=== PATIENT | male | born 1945 | race Caucasian/White ===

== ENCOUNTER 2022-09-25 08:33 | Emergency (ER) | payer MEDICARE, BC, SELFPAY ==
[2022-09-25 08:41] VITALS: BP 166/63; PULSE 44; RESP 20; TEMP 36.7; O2SAT 96; BMI 23.7
--- NOTE | 2022-09-25 09:01 | ED.LOWEXI1 ---
HPI - Extremity Injury (Lower) General Chief Complaint: Extremity Injury, Lower Stated Complaint: FALL LOWER EXTREMITY PAIN LEFT LEG Time Seen by Provider: 09/25/22 09:01 Source: patient Mode of arrival: walker Limitations: no limitations History of Present Illness HPI Narrative: Patient presents to emergency department complaining of left leg pain. Patient states he had Focal Fall Yesterday and Fell onto His Left Side. He States He Twisted His Left Ankle. Complains of Pain to the Foot, Ankle, and Knee When He Walks. He States He Although His Knee Has a Small Amount of Pain Worsened the Pain Is at the Ankle. Person That Accompanies the Patient Also States That the Patient Was Complains of Left Hip Pain. Patient Denies Any Back Pain, Paresthesias, Weakness. He Denies Any Urinary, Bowel Incontinence, or Retention. He Did Not Hit His Head or Have Any Loss of Consciousness. Patient denies any weakness. He denies any chest, shortness of breath. Denies any abdominal pain and flank pain, hematuria, dysuria. He does not take any blood thinners. Related Data Home Medications Medication Instructions Recorded Confirmed atenolol 50 mg tablet mg 09/25/22 diclofenac sodium 75 mg 75 mg PO Q12H PRN pain 09/25/22 09/25/22 tablet,delayed release glimepiride 4 mg tablet 4 mg PO BID 09/25/22 09/25/22 lisinopril 10 mg tablet 10 mg PO DAILY 09/25/22 09/25/22 metformin 500 mg tablet 1,000 mg PO BID 09/25/22 09/25/22 tramadol 50 mg tablet 50 mg PO Q12H PRN pain 09/25/22 09/25/22 Allergies Allergy/AdvReac Type Severity Reaction Status Date / Time No Known Allergies Allergy Unknown Verified 09/25/22 08:47 Review of Systems ROS Status of ROS 10 or more systems reviewed and unremarkable except as noted in history and below [facility] Medical History (Updated 09/25/22 @ 11:01 by Tamanna Cline MD) Social History Smoking status: Light tobacco smoker Exam Narrative Exam Narrative: Nurses notes and vital signs reviewed and patient is not hypoxic. General: Nontoxic, elderly,well-appearing and in no apparent distress. Skin: Warm, dry, no pallor noted. No Rash Head: Normocephalic, atraumatic. Neck: Supple, non-tender. Eye: Pupils are equal, round and EOMI. No scleral icterus. Ears, Nose, Mouth, and Throat: TM clear, no posterior oropharynx erythema or nasal mucosal hypertrophy, uvula is mid-line Oral mucosa is moist Cardiovascular: Regular Rate and Rhythm without murmur, gallop or rub. Respiratory: No accessory muscle use or respiratory distress. Lungs are clear to auscultation, no wheezing, rales or rhonchi Chest Wall: no tenderness Back: No midline thoracic or lumbar vertebral tenderness. No CVA tenderness Musculoskeletal: Left lateral malleolus edematous without any ecchymosis. Tender to palpation. There is tenderness at the base of the 5th. DP +2, tuberculosis +2, capillary refill is brisk. Knee is nontender to palpation. No effusion noted. Full range of motion. no calf or popliteal tenderness, no lower extremity edema/swelling GI: Abdomen is soft, non-distended. Normal bowel sounds. No masses appreciated. No tenderness to palpation. No rebound, guarding, or rigidity noted. Neurological: A&O x4. No cranial nerve dysfunction observed. No truncal ataxia. Moves all extremities. Sensation intact. Psychiatric: Cooperative and interactive. Normal mood and affect. Constitutional Vital Signs - 24 hr 09/25/22 08:41 Temperature 98.1 F Pulse Rate [Monitor] 44 L Respiratory Rate 20 Blood Pressure [Right Arm] 166/63 H Pulse Oximetry 96 Course Vital Signs Vital signs: Vital Signs Temperature 98.1 F 09/25/22 08:41 Pulse Rate 44 L 09/25/22 08:41 Respiratory Rate 20 09/25/22 08:41 Blood Pressure 166/63 H 09/25/22 08:41 Pulse Oximetry 96 09/25/22 08:41 Temperature 98.1 F 09/25/22 08:41 Pulse Rate 44 L 09/25/22 08:41 Respiratory Rate 20 09/25/22 08:41 Blood Pressure 166/63 H 09/25/22 08:41 Pulse Oximetry 96 09/25/22 08:41 MDM - Extremity Injury (Lower) MDM Narrative Medical decision making narrative: Left foot, left ankle, and femur x-rays ordered. All results discussed with patient. Results demonstrate no fracture. Patient was placed on the Tyrel wrap, and Aircast. He is to follow up with Dr. high Estrada.At this time the patient is without objective evidence of an acute process requiring hospitalization or inpatient management. The patient has remained hemodynamically stable. No additional indication for emergent studies at this time. I answered all questions. Discussed discharge instructions including standard anticipatory guidance and what should prompt a return to the emergency department, including if they get worse are not getting better or develops any new or concerning symptoms. I've given them specific time frame in which to follow-up, and who to follow-up with. The patient demonstrates understanding. Patient is nontoxic and stable for discharge with outpatient follow-up. This note was created with the assistance of a speech recognition program. Although the intention is to generate documents that actually reflects the content of the visit, no guarantees can be provided that every mistake has been identified and corrected by editing. Discharge Plan Discharge Chief Complaint: Extremity Injury, Lower Clinical Impression: Ankle sprain and strain Patient Disposition: Home, Self-Care Time of Disposition Decision: 11:00 Condition: Good Mode of Transportation: Private Vehicle Prescriptions / Home Meds: No Action diclofenac sodium 75 mg tablet,delayed release (DR/EC) 75 mg PO Q12H PRN (Reason: pain) atenolol 50 mg tablet glimepiride 4 mg tablet 4 mg PO BID lisinopril 10 mg tablet 10 mg PO DAILY metformin 500 mg tablet 1,000 mg PO BID tramadol 50 mg tablet 50 mg PO Q12H PRN (Reason: pain) Instructions: Ankle Sprain (ED) Additional Instructions: TYREL wrap to left ankle. Assisted to put jeans and shoes on. To W/C and to car aware of plan of care at discharge. Stand Alone Forms: Portal Instructions Referrals: NIELS TOWNSEND [Primary Care Provider] - 1 week Discharge Date/Time: 09/25/22 11:18
--- NOTE | 2022-09-25 09:17 | XR_ITS ---
[place] [id number] Patient Name: KATHE VICTOR MRN: [id number] date: 1945 Sex: M Assigned Patient Location: ER Current Patient Location: ER Accession/Order Number: [id number] Exam Date: 09/25/2022 09:38 Report Date: 09/25/2022 10:03 At the request of: DORA QUIROZ Procedure: XR femur LT 2V EXAM: XR femur LT 2V INDICATION: pain. COMPARISON: None. TECHNIQUE: Left femur, 2 views FINDINGS: No acute fracture or dislocation. Grossly intact left hip and knee joints. No significant soft tissue swelling. Vascular calcifications noted. IMPRESSION: No acute osseous abnormality of the left femur. Electronically authenticated by: CHRIS GODOY Date: 09/25/2022 10:03
--- NOTE | 2022-09-25 09:17 | XR_ITS ---
The [address] [address] Patient Name: KATHE VICTOR MRN: [id number] date: 1945 Sex: M Assigned Patient Location: ER Current Patient Location: ER Accession/Order Number: [id number] Exam Date: 09/25/2022 09:38 Report Date: 09/25/2022 10:02 At the request of: DORA QUIROZ Procedure: XR foot LT min 3V EXAM: XR ankle LT min 3V, XR foot LT min 3V INDICATION: pain. COMPARISON: None. TECHNIQUE: Left foot and ankle, 3 views. FINDINGS: Foot: No acute fracture or dislocation. Pes planus. Moderate degenerative changes of the first MTP joint. No significant soft tissue swelling. Vascular calcifications noted. Ankle: No acute fracture or dislocation. Intact ankle mortise. Mild soft tissue swelling about the ankle. Vascular calcifications noted. IMPRESSION: No acute osseous abnormality of the left foot or ankle. Electronically authenticated by: CHRIS GODOY Date: 09/25/2022 10:02
--- NOTE | 2022-09-25 09:17 | XR_ITS ---
The [address] [address] Patient Name: KATHE VICTOR MRN: [id number] date: 1945 Sex: M Assigned Patient Location: ER Current Patient Location: ER Accession/Order Number: [id number] Exam Date: 09/25/2022 09:38 Report Date: 09/25/2022 10:02 At the request of: DORA QUIROZ Procedure: XR ankle LT min 3V EXAM: XR ankle LT min 3V, XR foot LT min 3V INDICATION: pain. COMPARISON: None. TECHNIQUE: Left foot and ankle, 3 views. FINDINGS: Foot: No acute fracture or dislocation. Pes planus. Moderate degenerative changes of the first MTP joint. No significant soft tissue swelling. Vascular calcifications noted. Ankle: No acute fracture or dislocation. Intact ankle mortise. Mild soft tissue swelling about the ankle. Vascular calcifications noted. IMPRESSION: No acute osseous abnormality of the left foot or ankle. Electronically authenticated by: CHRIS GODOY Date: 09/25/2022 10:02
== END 2022-09-25 11:18 | disposition home or self-care (01) ==
PROVIDERS: Emergency Provider Emergency Medicine; PCP Family Medicine
DX: S93.402A Sprain of unspecified ligament of left ankle, initial encounter (principal); S96.912A Strain of unspecified muscle and tendon at ankle and foot level, left foot, initial encounter; Z79.899 Other long term (current) drug therapy; Z79.84 Long term (current) use of oral hypoglycemic drugs; F17.210 Nicotine dependence, cigarettes, uncomplicated; X50.1XXA Overexertion from prolonged static or awkward postures, initial encounter
CPT/HCPCS: 73552; 73610; 73630; 99284

== ENCOUNTER 2023-05-30 12:38 | Outpatient (OUT) | payer MEDICARE, BC, SELFPAY ==
--- NOTE | 2023-05-30 12:45 | MR_ITS ---
[address] [address] Patient Name: KATHE SPIVEY MRN: [id number] date: 1945 Sex: M Assigned Patient Location: MRI Current Patient Location: MRI Accession/Order Number: [id number] Exam Date: 05/30/2023 13:25 Report Date: 05/30/2023 14:42 At the request of: MAXI TELLEZ Procedure: MR lumbar spine wo con EXAM: MRI of the lumbar spine without IV gadolinium contrast. REASON FOR EXAM: Acute lower back pain and bilateral leg pain COMPARISON: None FINDINGS: No lumbar spine fractures, acute malalignment or acute abnormal marrow signal. No spinal canal mass, hematoma or fluid collection. Minimal grade 1 retrolisthesis of L2 on L3. Grade 1 retrolisthesis of L3 on L4. Minimal grade 1 anterolisthesis of L4 on L5. Grade 1 retrolisthesis of L5 on S1. L2-L3 posterior disc bulge. L3-L4, L4-5 and L5-S1 posterior disc protrusions. Lumbar spine degenerative changes with multilevel disc space narrowing, most advanced at the L2-L3 and L5-S1 levels. Stenosis of the lateral recesses at the L2-L3 level, more evident on the right. Moderate to severe L3-L4 spinal canal stenosis. Moderate to severe L4-5 spinal canal stenosis. Stenosis of the L5-S1 left lateral recess. Moderate to severe right L3-L4 neural foraminal stenosis. Moderate right L4-5 neural foraminal stenosis. Severe right L5-S1 neural foraminal stenosis. Moderate to severe left L3-L4, L4-5 and L5-S1 neural foraminal stenoses. Remainder unremarkable. MR/MR lumbar spine wo con IMPRESSION: 1. 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 2. Severe right L5-S1 neural foraminal stenosis. 3. Moderate to severe bilateral L3-L4, left L4-5 and left L5-S1 neural foraminal stenoses. Electronically authenticated by: SAILAJA SCHRADER Date: 05/30/2023 14:42
== END 2023-05-30 12:39 | disposition home or self-care (01) ==
LOC: MRI 12:38
PROVIDERS: PCP Internal Medicine; Visit Provider Orthopaedic Surgery
DX: M54.50 Low back pain, unspecified (principal); M48.062 Spinal stenosis, lumbar region with neurogenic claudication
CPT/HCPCS: 72148

== ENCOUNTER 2023-06-23 10:35 | Observation (INO) | payer MEDICARE, BC, SELFPAY ==
[2023-06-23] VITALS (28 sets, daily range): BP systolic 77–125; BP diastolic 32–67; PULSE 49–68; RESP 9–23; TEMP 36.4–36.6; O2SAT 92–100; BMI 21.0; BMI 20.8
--- OUTSIDE RECORDS SUMMARY | 2023-06-23 10:52 | XMS_ITS | CCD ---
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 Honing Name Role Phone HOUSE, DR BOWSER Primary Care Unavailable GABRIELLA, DORA Attending Unavailable GABRIELLA, DORA Consulting Unavailable GABRIELLA, DORA Admitting Unavailable HOUSE, DR BOWSER Primary Care Unavailable MADDIE, SUMMER Admitting Unavailable MADDIE, SUMMER Attending Unavailable HOUSE, DR BOWSER Primary Care Unavailable MADDIE, SUMMER Consulting Unavailable REQUEST, DR MARQUEZ LISTED Admitting Unavaila ble REQUEST, DR MARQUEZ LISTED Attending Unavaila ble HOUSE, DR BOWSER Primary Care Unavailable REQUEST, DR MARQUEZ LISTED Consulting Unavaila ble HOUSE, DR BOWSER Primary Care Unavailable PAY, DR PIZARRO Admitting Unavailable PAY, DR PIZARRO Attending Unavailable PAY, DR PIZARRO Consulting Unavailable HOUSE, DR BOWSER Admitting Unavailable HOUSE, DR BOWSER Attending Unavailable HOUSE, DR BOWSER Consulting Unavailable HOUSE, DR BOWSER Primary Care Unavailable ROSALINDA, MAXI Jackson Attending Unavailable ROSALINDA, MAXI Jackson Referring Unavailable MEGHANA, ROBYN Galarza Attending Unavailable ROSALINDA, MAXI Jackson Attending Unavailable ROSALINDA, MAXI Jackson Referring Unavailable ROSALINDA, MAXI Jackson Attending Unavailable ROSALINDA, MAXI Jackson Attending Unavailable ELTAHAWMilena, EHAB Attending Unavailable ELTAHAW, EHAB Attending Unavailable Problems Active Problems Problem Classification Problem Date Documented Date Episodic/Chronic Administrative/social admission (1 source) Person with feared health complaint in whom no diagnosis is made; Translations: [PERS FEAR HLTH COMPLAINT NO DX MADE] Onset: 07-08-2021 Episodic Coagulation and hemorrhagic disorders (4 sources) Thrombocytopenia, unspecified; Translations: [THROMBOCYTOPENIA UNSPECIFIED] Onset: 11-13-2020 Chronic Coronary atherosclerosis and other heart disease (2 sources) Atherosclerotic heart disease of [place] coronary artery without angina pectoris; Translations: [Atherosclerotic heart disease of [place] coronary artery without angina pectoris] Onset: 07-27-2022 Chronic Other aftercare (1 source) Other half-way (current) drug therapy; Translations: [OTH [facility] CURRENT DRUG THERAPY] Onset: 07-08-2021 Episodic Other aftercare (1 source) [facility] (current) use of aspirin; Translations: [ORDER PULLER CURRENT USE OF ASPIRIN] Onset: 07-08-2021 Episodic Other aftercare (1 source) 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; Translations: [ORDER PULLER USE ORAL HYPOGLYCEMIC DX] Onset: 07-08-2021 Episodic Other injuries and conditions due to external causes (1 source) History of falling; Translations: [HISTORY OF FALLING] Onset: 07-08-2021 Episodic Other non-traumatic joint disorders (4 sources) Pain in right hip; Translations: [PAIN IN RIGHT HIP] Onset: 07-07-2021 Episodic Unclassified (1 source) CONTACT W/AND (SUSP) EXPOS COVID-19; Translations: [CONTACT W/AND (SUSP) EXPOS COVID-19] Onset: 04-01-2021 Past or Other Problems Problem Classification Problem Date Documented Date Episodic/Chronic Heart valve disorders (1 source) Other abnormalities of heart beat; Translations: [OTHER ABNORMALITIES OF HEART BEAT] Onset: 04-01-2021 Episodic Immunizations and screening for infectious disease (4 sources) Encounter for immunization; Translations: [ENCOUNTER FOR IMMUNIZATION] Onset: 02-09-2021 Episodic Other upper respiratory infections (4 sources) Acute upper respiratory infection, unspecified; Translations: [ACUTE UP RESPIRATORY INFECTION UNS] Onset: 03-29-2021 Episodic Results Test Name Value Interpretation Reference Range Facil ity Follow-Upon 06-21-2023 Follow-Up [id number] Celestino Chung 1945 M Date Provider Department [facility] No family history on file Level of Service:18492 [place] OFFICE/OUTPATIENT ESTABLISHED MOD MDM 30 MIN Normal [facility] Office Visiton 07-27-2022 Follow-up visit [id number] Subramanian 1945 M Date Provider Department Center 07/27/2022 DominikJONATHAN [facility] No family history on file Level of Service:48077 [place] OFFICE/OUTPATIENT ESTABLISHED LOW MDM 20-29 MIN Reason for Visit and Comments: Coronary Artery Disease [187] Hypertension [934905] Normal [facility] Covid-19 PCR (CVDTB)on 03-17 SARS-CoV-2 (COVID-19) RNA LEO+probe Ql (Unsp spec) Not detected Normal NOT DETECTED [facility] Comment on above: Result Comment: When diagnostic testing is negative, the possibility of a false negative should be considered in the context of a patient's recent exposures and the presence of clinical signs and symptoms consistent with SARS-CoV-2. This test is not yet approved or cleared by the [place] Food and Drug Administration (FDA). This test was developed by [employer], [place], [place]. The performance characteristics of this test were validated by [facility]. The results are not intended to be used as the sole means for clinical diagnosis or patient management decisions. [facility] is authorized under Clinical Laboratory Improvement Amendments (CLIA) to perform high- complexity testing. This test is not yet approved or cleared by the [place] FDA. When there are no FDA-approved or cleared tests available, and other criteria are met, FDA can make tests available under an emergency access mechanism called an Emergency Use Authorization (EUA). The EUA for this test is supported by the [place] of Health and Human Service's declaration that circumstances exist to justify the emergency use of in vitro diagnostics for the detection and/or diagnosis of the virus that causes COVID-19. This EUA will remain in effect for the duration of the COVID-19 declaration justifying emergency of IVDs, unless it is terminated or revoked by the FDA (after which the test may no longer be used). Performed By: #### C VDTB #### [facility] [address] [place] [address] Dr. Kelly Montoya CBC AUTO DIFFon 11-13-2020 BASO # 0.1 103/ul Normal 0.0-0.1 [facility] Comment on above: Performed By: #### C BC #### [facility] [address] [place] [address] Cortez Ramirez Basophils/100 WBC (Bld) 1.3 % Normal 0.2-2.0 [facility] Comment on above: Performed By: #### C BC #### [facility] [address] [id number] Cortez Ashley EO # 0.4 103/ul Normal 0.0-0.7 [facility] Comment on above: Performed By: #### C BC #### [facility] [address] [place], [place] [id number] Cortez Ashley Eosinophils/100 WBC (Bld) 5.0 % Normal 0.9-7.0 [facility] Comment on above: Performed By: #### C BC #### [facility] [address] [place], [place] [id number] Cortez Ashley Erythrocyte distribution width (RBC) [Ratio] 13.6 % Normal 11.0-15.0 [facility] Comment on above: Performed By: #### C BC #### [facility] [address] [place] [address] Cortez Ashley Hematocrit (Bld) [Volume fraction] 47.6 % Normal 42.0-54.0 [facility] Comment on above: Performed By: #### C BC #### [facility] [address] [place], [place] [id number] Cortez Ashley Hemoglobin (Bld) [Mass/Vol] 15.4 g/dL Normal 14.0-18.0 [facility] Comment on above: Performed By: #### C BC #### [facility] [address] [place], [place] [id number] Cortez Ashley IG # 0.04 10e3/ul Critically high 0.00-0.03 [facility] Comment on above: Performed By: #### C BC #### [facility] [address] [place] [address] Cortez Ashley IG % 0.6 % Critically high 0.0-0.5 [facility] Comment on above: Performed By: #### C BC #### [facility] [address] [place], [place] [id number] Cortez Ashley LYMPH # 2.0 103/ul Normal 1.2-3.8 [facility] Comment on above: Performed By: #### C BC #### [facility] [address] [place], [place] [id number] Cortez Ashley Lymphocytes/100 WBC (Bld) 27.9 % Normal 20.5-60.0 [facility] Comment on above: Performed By: #### C BC #### [facility] [address] [place], [place] [id number] Cortez Ramirez MANUAL DIFF REQ NO Normal [facility] Comment on above: Performed By: #### C BC #### [facility] [address] [place], [place] [id number] Cortezvioleta Ramirez MCH (RBC) [Entitic mass] 30.3 pg Normal 25.9-34.0 [facility] Comment on above: Performed By: #### C BC #### [facility] [address] [place] [address] Cortezvioleta Ramirez MCHC (RBC) [Mass/Vol] 32.4 g/dL Normal 29.9-35.2 [facility] Comment on above: Performed By: #### C BC #### [facility] [address] [place] [address] Cortezvioleta Ramirez MCV (RBC) [Entitic vol] 93.5 fL Normal 80.0-94.0 [facility] Comment on above: Performed By: #### C BC #### [facility] [address] [place], [place] [id number] Cortezvioleta Ramirez MONO # 0.5 103/ul Normal 0.3-0.8 [facility] Comment on above: Performed By: #### C BC #### [facility] [address] [place] [address] Cortezvioleta Ramirez Monocytes/100 WBC (Bld) 7.4 % Normal 1.7-12.0 [facility] Comment on above: Performed By: #### C BC #### [facility] [address] [place], [place] [id number] Cortez Ashley NEUT # 4.1 103/ul Normal 1.4-6.5 [facility] Comment on above: Performed By: #### C BC #### [facility] [address] [place], [place] [id number] Cortez Ashley Neutrophils/100 WBC (Bld) 57.8 % Normal 43.0-75.0 [facility] Comment on above: Performed By: #### C BC #### [facility] [address] [place], [place] [address] Cortez Ramirez Platelet mean volume (Bld) [Entitic vol] 11.1 fL Normal 9.5-13.5 [facility] Comment on above: Performed By: #### C BC #### [facility] [address] [place], [place] [address] Cortez Ashley PLT 167 103/ul Normal 150-450 [facility] Comment on above: Performed By: #### C BC #### [facility] [address] [place], [place] [address] Cortez Ashley RBC 5.09 106/ul Normal 4.70-6.10 [facility] Comment on above: Performed By: #### C BC #### [facility] [address] [place], [place] [address] Cortez Ashley WBC 7.1 103/ul Normal 4.0-11.0 [facility] Comment on above: Performed By: #### C BC #### [facility] [address] [place], [place] [address] Cortez Ramirez Encounters Encounter Date Encounter Type Care Provider Facility Start: 06-21-2023 End: 06-21-2023 ambulatory [facility] Start: 06-21-2023 End: 06-21-2023 Encounter for other preprocedural examination [facility] Start: 06-06-2023 End: 06-06-2023 ambulatory MAXI TELLEZ Not Available Start: 05-23-2023 End: 05-23-2023 ambulatory MAXI TELLEZ Not Available Start: 05-09-2023 End: 05-10-2023 ambulatory MAXI TELLEZ Not Available Start: 05-08-2023 End: 05-08-2023 ambulatory ROBYN KOWALSKI Not Available Start: 04-25-2023 End: 04-26-2023 ambulatory MAIX TELLEZ Not Available Start: 07-27-2022 End: 07-27-2022 ambulatory [facility] Start: 07-07-2021 End: 07-07-[address] NIELS TOWNSEND Facility:[facility] Start: 03-29-2021 End: 03-29-[address] NIELS TOWNSEND Facility:[facility] Start: 02-09-2021 End: 02-09-2021 ambulatory SUMMERMALORIE PERKINS Facility:[facility] Start: 11-13-2020 End: 11-14-[address] NIELS TOWNSEND Facility:[facility] Start: 07-14-2020 End: 07-15-2020 ambulatory NONE LISTED REQUEST Facility:[facility] Payers Date Payer Category Payer Medicare [id number] 1961 Medicare [id number] 1961 Self-pay 1959 Unknown [id number] 1961 Unknown [id number] 1945 Unknown [id number] 2.16.84 [id number] 1945 Unknown [id number] 2.16.84 [id number] 1945 Unknown [id number] 2.16.84 [id number] 1945 Unknown [id number] 2.16.84 0.1.294559.3.579.2.593 1945 Unknown [id number] 2.16.84 0.1.781541.3.579.2.593 1945 Unknown [id number] 2.16.84 0.1.679988.3.579.2.1259 1943 Unknown [id number] 2.16.84 0.1.623092.3.579.2.1259 1943 Unknown [id number] 2.16.84 0.1.238125.3.579.2.1259 1943 Unknown [id number] 2.16.84 0.1.826942.3.579.2.1259 1943 Unknown [id number] 2.16.84 0.1.832027.3.579.2.1259 1943 Unknown [id number] 2.16.84 0.1.275248.3.579.2.1259 1945 Unknown [id number] 2.16.84 0.1.572236.3.579.2.1259 Unknown [id number] 2.16.84 [id number] Progress note 06-21-2023 Note Date & Type Note Facility 06-21-2023 Note [facility] Card[facility] Clinic Note Chief Complaint: Patient here for cardiac clearance prior to back surgery, hoping to be scheduled next month. Denies chest pain, SOB, palpitations, and lightheadedness/syncope. Has not had any recent lab work or imaging. HPI: Celestino Chung is a 77 y.o. male With a history of coronary artery disease: Prior stent placement, a chronic total occlusion of the obtuse marginal branch, diabetes and hypertension here for preop clearance He walks with a walker and is unable to walk independently due to severe back pain and falls. He is unable to walk up and down stairs; and unable to gauge his physical tolerance He denies chest pain, he has chronic shortness of breath No orthopnea, no paroxysmal, dyspnea, no lower extremity edema Cardiology ROS: Review of Systems Hematologic/Lymphatic: Bruises/bleeds easily. Musculoskeletal: Positive for arthritis, back pain, joint pain, muscle weakness and myalgias. All other systems reviewed and are negative. Past Medical History He has a past medical history of Coronary artery disease, Diabetes mellitus ([facility]), Hypertension, and Pulmonary embolism ([facility]). Surgical History He has a past surgical history that includes Cardiac catheterization and Cholecystectomy. Social History He reports that he has been smoking cigarettes. He has never used smokeless tobacco. He reports that he does not currently use alcohol. No history on file for drug use. Family History No family history on file. Allergies Patient has no known allergies. Medications Current Outpatient Medications: aspirin 81 mg chewable tablet, in the morning., Disp: , Rfl: atenolol (Tenormin) 50 mg tablet, Take 50 mg by mouth in the morning., Disp: , Rfl: cholecalciferol (Vitamin D-3) 25 MCG (1000 units) tablet, in the morning., Disp: , Rfl: diclofenac (Voltaren) 75 mg EC tablet, Take 75 mg by mouth in the morning and at bedtime., Disp: , Rfl: glimepiride (Amaryl) 4 mg tablet, glimepiride 4 mg tablet TAKE 1 TABLET BY MOUTH TWICE DAILY, Disp: , Rfl: hydroCHLOROthiazide (HYDRODiuril) 25 mg tablet, in the morning., Disp: , Rfl: lisinopril 10 mg tablet, lisinopril 10 mg tablet TAKE 1 TABLET BY MOUTH EVERY DAY, Disp: , Rfl: meloxicam (Mobic) 15 mg tablet, Take 15 mg by mouth in the morning., Disp: , Rfl: metFORMIN (Glucophage) 500 mg tablet, Take 1,000 mg by mouth in the morning and 1,000 mg in the evening., Disp: , Rfl: simvastatin (Zocor) 40 mg tablet, Take 40 mg by mouth at bedtime., Disp: , Rfl: traMADol (Ultram) 50 mg tablet, Take 50 mg by mouth if needed each day., Disp: , Rfl: Last Recorded Vitals BP 112/66 (BP Location: Left arm, Patient Position: Sitting) Pulse 62 Ht 1.854 m (6' 1 ) Wt 71.2 kg (157 lb) SpO2 99% BMI 20.71 kg/m??? Physical Examination: GENERAL: alert and oriented x3, well developed, in no acute distress. HEAD: atraumatic, normocephalic. EYES: SEBAS, EOMI. NECK: trachea midline, no JVD present, no carotid bruits present. CARDIAC: S1, S2 present. RRR. No murmur, rubs, or gallops. RESPIRATORY: CTAB, no increased effort of breathing, no rales, rhonchi, or wheezing. ABDOMEN: soft, nontender, nondistended. EXTREMITIES: no lower extremity edema, peripheral pulses are 2+ bilaterally. No rash/skin discoloration present. NEURO: strength/sensation equal and symmetric in bilateral upper and lower extremities. PSYCH: appropriate mood, affect, and judgement. Investigations: Stress test 2015: Myocardial perfusion study shows evidence of ischemia Abnormal perfusion study with large, lateral wall ischemia and inferior wall infarct with negligible intra infarct ischemia Lower limits of normal left ventricular systolic function with regional wall motion abnormalities No ischemic EKG changes seen Cardiac catheterization 10/20/2015: SUMMARY OF FINDINGS Coronary artery disease with mild disease of the left anterior descending and diagonal branch, moderate disease in the distal right coronary artery with patent mid right coronary artery stents, and chronic total occlusion of the first obtuse marginal branch which is a bifurcating vessel Recommendations: Given relative absence of significant symptoms, the patient can potentially be managed medically around the perioperative period. If the patient develops symptoms in the future, then intervention to the chronic total occlusion of the obtuse marginal can be undertaken Labs 06/19/2020: Total cholesterol is 103, HDL is 30, triglycerides of 132 and LDL is 46 Echocardiogram 06/19/2020: Low normal ejection fraction of 50 to 55%. Normal right ventricular systolic function. No significant valvular abnormalities. 12 lead EKG 06/21/2023 Sinus rhythm, sinus arrhythmia, intraventricular conduction block. Abnormal EKG Assessment: 1. Electrocardiogram abnormal 2. Coronary arteriosclerosis in [place] artery - stents 2006 rca and cirx no sympt (more content not included)... [facility] Progress note 07-27-2022 Note Date & Type Note Facility 07-27-2022 Note [facility] Cardiology Clinic Note Chief Complaint: Patient here for 1 year follow up CAD and hypertension. Denies chest pain and SOB. No recent lab work or imaging. HPI: Doing well from a cardiac standpoint; no chest pain, no shortness of breath, no other concerning symptoms Relays a recent history of transient sensation of pulsations in the left ear after he wakes up. This resolves after 10 to 15 minutes. He believes this is likely related to earwax. No other neurological symptoms, no headaches, no blurring of vision, no weakness or numbness in the arms or legs. Cardiology ROS: Review of Systems Hematologic/Lymphatic: Bruises/bleeds easily. Musculoskeletal: Positive for arthritis, back pain and joint pain. All other systems reviewed and are negative. Past Medical History He has no past medical history on file. Surgical History He has no past surgical history on file. Social History He has no history on file for tobacco use, alcohol use, and drug use. Family History No family history on file. Allergies Patient has no allergy information on record. Medications No current outpatient medications on file. Last Recorded Vitals Patient Vitals for the past 24 hrs: BP Pulse SpO2 Height Weight 07/27/22 0925 135/74 73 96 % 1.854 m (6' 1 ) 81.6 kg (180 lb) Physical Examination: GENERAL: alert and oriented x3, well developed, in no acute distress. HEAD: atraumatic, normocephalic. EYES: SEBAS, EOMI. NECK: trachea midline, no JVD present, no carotid bruits present. CARDIAC: S1, S2 present. RRR. No murmur, rubs, or gallops. RESPIRATORY: CTAB, no increased effort of breathing, no rales, rhonchi, or wheezing. ABDOMEN: soft, nontender, nondistended. EXTREMITIES: no lower extremity edema, peripheral pulses are 2+ bilaterally. No rash/skin discoloration present. NEURO: strength/sensation equal and symmetric in bilateral upper and lower extremities. PSYCH: appropriate mood, affect, and judgement. Investigations: Labs 06/19/2020: Total cholesterol is 103, HDL is 30, triglycerides of 132 and LDL is 46 Echocardiogram 06/19/2020: Low normal ejection fraction of 50 to 55%. Normal right ventricular systolic function. No significant valvular abnormalities. Assessment: 1. Electrocardiogram abnormal R94.31: Abnormal electrocardiogram [ECG] [EKG] 2. Coronary arteriosclerosis in [place] artery - stents 2006 rca and cirx no symptoms asa being held He had ischemic stress in september 2015 went on to catherization Lad has mild disease Moderate disease in rca Circumflex is occluded with collateral I25.10: Atherosclerotic heart disease of [place] coronary artery without angina pectoris 3. Type 2 diabetes mellitus without complication E11.9: Type 2 diabetes mellitus without complications TYPE 2 DIABETES: CARE INSTRUCTIONS 4. Hypertensive disorder I10: Essential (primary) hypertension ELEVATED BLOOD PRESSURE: CARE INSTRUCTIONS 5. Essential hypertension I10: Essential (primary) hypertension HIGH BLOOD PRESSURE: CARE INSTRUCTIONS LEARNING ABOUT HIGH BLOOD PRESSURE Plan: 1.-Continue current medical therapy 2.-Given diabetes mellitus and vascular disease, an SGLT2 inhibitor such as Jardiance or Farxiga is strongly recommended; he is to discuss this with his family physician, as he is already on a number of medications for his diabetes 3-Lipitor or Crestor would be preferable to Zocor however the patient was apparently on one of these in the past. I assume he must of not tolerated it. His lipid profile is reasonable. 4- He is to discuss his ear symptoms with his family physician Return to clinic in 1 year or sooner should problems arise Shamar García MD, MPH, [facility], [facility], [facility] Interventional Cardiology Pager Email: [email or web address] Summary Purpose Family History No Family History Records FoundNo Family History Records FoundNo Family History Records FoundNo Family History Records Found Advance Directives No Advanced Directives Records FoundNo Advanced Directives Records FoundNo Advanced Directives Records FoundNo Advanced Directives Records Found Additional Source Comments (unrecognized sect ion and content) No Status Records FoundNo Status Records FoundNo Status Records FoundNo Status Records Found INFORMATION SOURCE (unrecogn ized section and content) DATE CREATED AUTHOR 03/29/2021 [facility] DATE CREATED AUTHOR AUTHOR'S ORGANIZ ATION 07/08/2021 [facility] DATE CREATED AUTHOR AUTHOR'S ORGANIZ ATION 06/13/2023 [facility] DATE CREATED AUTHOR AUTHOR'S ORGANIZ ATION 06/22/2023 [facility] FOR RECORDS PERTAINING TO PATIENTS WHO ARE OR HAVE BEEN ENROLLED IN A CHEMICAL DEPENDENCY/SUBSTANCEABUSE PROGRAM, SOME INFORMATION MAY BE OMITTED. This clinical summary was aggregated from multiple sources. Caution should be exercised in using it in the provision of clinical care. This summary normalizes information from multiple sources, and as a consequence, information in this document may materially change the coding, format and clinical context of patient data. In addition, data may be omitted in some cases. CLINICAL DECISIONS SHOULD BE BASED ON THE PRIMARY CLINICAL RECORDS. [employer] provides no warranty or guarantee of the accuracy or completeness of information in this document.
--- NOTE | 2023-06-23 11:03 | CT_ITS ---
[address] [address] Patient Name: KATHE VICTOR MRN: [id number] date: 1945 Sex: M Assigned Patient Location: ER Current Patient Location: ER Accession/Order Number: [id number] Exam Date: 06/23/2023 12:48 Report Date: 06/23/2023 14:00 At the request of: ELIZABETH BISHOP Procedure: CT abdomen pelvis w con EXAMINATION: CT abdomen pelvis w con HISTORY: vomiting, abdominal pain , 25 pound weight loss, urinary frequency COMPARISON: CT abdomen pelvis 09/05/2018 TECHNIQUE: Axial, Coronal, and Sagittal images were obtained without and/or with IV contrast as indicated by examination type. Dose reduction techniques were achieved by using automated exposure control and/or adjustment of mA and/or kV according to patient size and/or use of iterative reconstruction technique. FINDINGS: LUNG BASES: No visible pulmonary or pleural disease. LIVER: No enlargement, atrophy, suspicious density, or significant focal lesion. BILIARY: Cholecystectomy. PANCREAS: No lesion, fluid collection, or abnormal duct dilatation. SPLEEN: No enlargement or focal lesion. ADRENALS: No mass or enlargement. KIDNEYS: No mass, obstruction, or calcification. BOWEL/MESENTERY: Mild diverticulosis of distal colon without acute inflammatory changes. No visible mass, obstruction, or bowel wall thickening. AORTA/VASCULAR: No aneurysm or dissection. RETROPERITONEUM: No mass or adenopathy. LYMPH NODES: No adenopathy. URINARY BLADDER: No visible focal wall thickening, lesion, or calculus. PELVIC ORGANS: No visible mass. Pelvic organs appropriate for patient age. ABDOMINAL WALL: No mass or hernia. BONES: Marked degenerative disc disease L2-3, L5-S1. No bony lesion or fracture. OTHER: Negative. CT/CT abdomen pelvis w con IMPRESSION: 1. No acute or suspicious findings to account for patient's symptoms. 2. Mild distal colonic diverticulosis. No acute findings. Electronically authenticated by: ELTON DING Date: 06/23/2023 14:00
--- NOTE | 2023-06-23 11:12 | ED_ITS ---
HPI - General Adult General Chief complaint: Abdominal Pain Stated complaint: WEAKNESS/DEHYDRATION Time Seen by Provider: 06/23/23 10:45 Source: patient Mode of arrival: Wheelchair Limitations: no limitations History of Present Illness HPI narrative: Patient complains of one month of upper abdominal pain, nausea, decreased appetite and subsequent weight loss. He has not been eating or drinking much for several weeks. He admits to diarrhea. No vomiting but any eating or drinking causes increased upper abdominal pain. he has not seen his PCP, Dr Cardona, for this. No fever or chills. No urinary symptoms. No blood in urine or stool. Related Data Home Medications Medication Instructions Recorded Confirmed atenolol 50 mg tablet 50 mg PO Q24H 09/25/22 06/23/23 diclofenac sodium 75 mg 75 mg PO Q12H PRN pain 09/25/22 06/23/23 tablet,delayed release glimepiride 4 mg tablet 4 mg PO BID 09/25/22 06/23/23 lisinopril 10 mg tablet 10 mg PO DAILY 09/25/22 06/23/23 metformin 500 mg tablet 1,000 mg PO BID 09/25/22 06/23/23 tramadol 50 mg tablet 50 mg PO Q12H PRN pain 09/25/22 06/23/23 Allergies Allergy/AdvReac Type Severity Reaction Status Date / Time No Known Allergies Allergy Unknown Verified 06/23/23 10:46 [facility] Medical History (Updated 06/23/23 @ 14:07 by Nils Christopher) Pulmonary embolism ?I26.99 - Other pulmonary embolism without acute cor pulmonale (ICD-10) Diabetes ?E11.9 - Type 2 diabetes mellitus without complications (ICD-10) Myocardial infarction ?I21.9 - Acute myocardial infarction, unspecified (ICD-10) Hypertension ?I10 - Essential (primary) hypertension (ICD-10) Social History Smoking status: Light tobacco smoker Exam Narrative Exam Narrative: Nurses notes and vital signs reviewed and patient is not hypoxic. afebrile General: Well-appearing and in no apparent distress. Skin: Warm, dry, no pallor noted. No rash. Head: Normocephalic, atraumatic. Eye: Pupils are equal, round and EOMI. No scleral icterus. Ears, Nose, Mouth, and Throat: Oral mucosa is dry Cardiovascular: Regular Rate and Rhythm without murmur, gallop or rub. Respiratory: No accessory muscle use or respiratory distress. Lungs are clear to auscultation, no wheezing, rales or rhonchi Back: No CVA tenderness Musculoskeletal: normal ROM, no calf or popliteal tenderness, no lower extremity edema/swelling GI: Abdomen is soft, non-distended. Normal bowel sounds. No masses appreciated. Diffuse upper abdominal tenderness to palpation. No rebound, guarding, or rigidity noted. Neurological: A&O x4. No cranial nerve dysfunction observed. No truncal ataxia. Moves all extremities. Sensation intact. Psychiatric: Cooperative and interactive. Normal mood and affect. Constitutional Vital Signs, click to edit/add: Last Vital Signs Temp 97.9 F 06/23/23 10:42 Pulse 55 L 06/23/23 13:30 Resp 10 L 06/23/23 13:30 BP 104/49 06/23/23 13:30 Pulse Ox 95 06/23/23 13:30 O2 Del Method Room Air 06/23/23 10:42 Course Vital Signs Vital signs: Vital Signs Temperature 97.9 F 06/23/23 10:42 Pulse Rate 65 06/23/23 10:42 Respiratory Rate 16 06/23/23 10:42 Blood Pressure 125/67 06/23/23 10:42 Pulse Oximetry 96 06/23/23 10:42 Oxygen Delivery Method Room Air 06/23/23 10:42 Temperature 97.9 F 06/23/23 10:42 Pulse Rate 55 L 06/23/23 13:30 Respiratory Rate 10 L 06/23/23 13:30 Blood Pressure 104/49 06/23/23 13:30 Pulse Oximetry 95 06/23/23 13:30 Oxygen Delivery Method Room Air 06/23/23 10:42 Medical Decision Making [facility] Narrative Medical decision making narrative: Patient was placed on surveillance monitor and EKG obtained. Blood drawn and sent for evaluation. He was ordered to undergo CT scanning of the abdomen and pelvis wi th contrast. He was given normal saline IV fluid bolus, IV Protonix, IV Zofran and IV Dilaudid. ON recheck at 1230pm, he told me that his nausea and pain were substantially decreased. WBC elevated at 15.2k, left shift noted. CMP with normal electrolytes, normal LFTs. BUN markedly elevated at 112. Cr elevated at 1.83. He was ordered to get a 2nd liter of NS IVF. Lipase negative/normal. CT = no acute or suspicious findings to account for the patient's symptoms, per radiologist. Mild distal colonic diverticulosis without diverticulitis. Patient will be admitted for acute kidney injury. He has received 2 L of normal saline IV fluid. He will be admitted for continued IV fluid hydration and recheck of labs in the morning. Case discussed with Dr. Lawrence, the admitting physician on-call. He was agreeable to admitting this patient - medsurg, obs. Patient also agreeable to admission. Lab Data Lab results reviewed: Yes I reviewed the patient's lab results Labs: Lab Results 06/23/23 Range/Units 10:49 WBC 15.2 H (4.0-11.0) 10^3/uL RBC 3.82 L (4.70-6.10) 10^6/uL Hgb 11.3 L (14.0-18.0) g/dL Hct 34.7 L (42.0-54.0) % MCV 90.8 (80.0-94.0) fL MCH 29.6 (25.9-34.0) pg MCHC 32.6 (29.9-35.2) g/dL RDW 13.5 (11.0-15.0) % Plt Count 340 (150-450) 10^3/uL MPV 10.2 (9.5-13.5) fL Neut % (Auto) 83.1 H (43.0-75.0) % Lymph % (Auto) 11.2 L (20.5-60.0) % [place] % (Auto) 4.3 (1.7-12.0) % Eos % (Auto) 0.4 L (0.9-7.0) % Baso % (Auto) 0.4 (0.2-2.0) % Neut # (Auto) 12.7 H (1.4-6.5) 10^3/uL Lymph # (Auto) 1.7 (1.2-3.8) 10^3/uL [place] # (Auto) 0.7 (0.3-0.8) 10^3/uL Eos # (Auto) 0.1 (0.0-0.7) 10^3/uL Baso # (Auto) 0.1 (0.0-0.1) 10^3/uL Abs Immat Gran (auto) 0.09 H (0.00-0.03) 10^3/uL Imm/Tot Granulo (auto) 0.6 H (0.0-0.5) % Sodium 136 (136-145) mmol/L Potassium 4.4 (3.5-5.1) mmol/L Chloride 98 (98-107) mmol/L Carbon Dioxide 24.5 (21.0-32.0) mmol/L Anion Gap 17.9 BUN 112.0 H* (7.0-18.0) mg/dL Creatinine 1.83 H (0.70-1.30) mg/dL Est GFR ( Amer) 44 L (>=60) Est GFR (Non-Af Amer) 36 L (>=60) BUN/Creatinine Ratio 61.2 Glucose 228 H (74-106) mg/dL Calcium 9.5 (8.5-10.1) mg/dL Total Bilirubin 0.4 (0.2-1.0) mg/dL AST 23 (15-37) U/L ALT 41 (16-63) U/L Alkaline Phosphatase 61 (46-116) U/L Total Protein 7.1 (6.4-8.2) g/dL Albumin 3.0 L (3.4-5.0) g/dL Globulin 4.1 g/dL Albumin/Globulin Ratio 0.7 Lipase 40.0 (16.0-77.0) U/L Imaging Data CT scan - abdomen: Radiologist's impression: ITS Impressions Abdomen/Pelvis CT 06/23/23 11:03 IMPRESSION: 1. No acute or suspicious findings to account for patient's symptoms. 2. Mild distal colonic diverticulosis. No acute findings. Electronically authenticated by: ELTON DING Date: 06/23/2023 14:00 ECG Data Attestation: I personally reviewed and interpreted this ECG as follows: Interpretation: EKG interpretation: Emergency Department physician interpretation. Normal sinus rhythm at 59bpm. Right bundle branch block. Shortened RR interval. Left axis deviation. No ST segment elevation or depression. Discharge Plan Discharge Chief Complaint: Abdominal Pain Clinical Impression: Acute kidney injury, Abdominal pain, Acute dehydration Patient Disposition: Admitted as Observation Time of Disposition Decision: 14:07
[2023-06-23] MEDS: 0.9 % SODIUM CHLORIDE 1,000 ML 999 ML IV (11:13)
[2023-06-23] MEDS: ONDANSETRON PF 4 MG/2 ML VIAL IV (11:13)
[2023-06-23 11:15] LABS: Basophils Absolute Auto 0.1 10^3/uL (0.0-0.1); Basophils Percent Auto 0.4 % (0.2-2.0); Eosinophils Absolute Auto 0.1 10^3/uL (0.0-0.7); Eosinophils Percent Auto 0.4 % (0.9-7.0); Hematocrit 34.7 % (42.0-54.0); Hemoglobin 11.3 g/dL (14.0-18.0); Immature Granulocytes Abs Auto 0.09 10^3/uL (0.00-0.03); Immature Granulocytes Pct Auto 0.6 % (0.0-0.5); Lymphocytes Absolute Auto 1.7 10^3/uL (1.2-3.8); Lymphocytes Percent Auto 11.2 % (20.5-60.0); Mean Corpuscular HGB Conc 32.6 g/dL (29.9-35.2); Mean Corpuscular Hemoglobin 29.6 pg (25.9-34.0); Mean Corpuscular Volume 90.8 fL (80.0-94.0); Mean Platelet Volume 10.2 fL (9.5-13.5); Monocytes Absolute Auto 0.7 10^3/uL (0.3-0.8); Monocytes Percent Auto 4.3 % (1.7-12.0); Neutrophils Absolute Auto 12.7 10^3/uL (1.4-6.5); Neutrophils Percent Auto 83.1 % (43.0-75.0); Platelet Count 340 10^3/uL (150-450); Red Blood Count 3.82 10^6/uL (4.70-6.10); Red Cell Distribution Width 13.5 % (11.0-15.0); White Blood Count 15.2 10^3/uL (4.0-11.0)
[2023-06-23] MEDS: HYDROMORPHONE HCL 0.5 MG/0.5 ML SYRINGE IV (11:22)
[2023-06-23] MEDS: PANTOPRAZOLE SODIUM 40 MG VIAL IV (11:22)
[2023-06-23 11:35] LABS: Alanine Aminotransferase 41 U/L (16-63); Albumin Globulin Ratio 0.7; Alkaline Phosphatase 61 U/L (46-116); Anion Gap 17.9; Aspartate Amino Transferase 23 U/L (15-37); BUN Creatinine Ratio 61.2; Bilirubin Total 0.4 mg/dL (0.2-1.0); Calcium 9.5 mg/dL (8.5-10.1); Carbon Dioxide 24.5 mmol/L (21.0-32.0); Chloride 98 mmol/L (98-107); Estimated GFR (African America 44 (>=60); Estimated GFR (Non-African Ame 36 (>=60); Globulin 4.1 g/dL; Glucose 228 mg/dL (74-106); Potassium 4.4 mmol/L (3.5-5.1); Sodium 136 mmol/L (136-145); Total Protein 7.1 g/dL (6.4-8.2)
--- NOTE | 2023-06-23 12:15 | ECG_ITS ---
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: : 1945 Requested By: Nils Christopher Order Number: [id number] Reading MD: DANISH SOLANO Measurements Intervals [place] Rate: 59 P: 72 [place]: 176 QRS: -73 QRSD: 130 T: 57 QT: 458 QTc: 458 Interpretive Statements 1100 Sinus rhythm 1574 with frequent ventricular premature complexes 2450 Right bundle branch block 7200 Abnormal left axis deviation 9150 abnormal ECG Compared to ECG 09/05/2018 18:59:50 Ventricular premature complex(es) now present Left-axis deviation now present Sinus bradycardia no longer present T-wave abnormality no longer present Sinus arrhythmia no longer present Left anterior fascicular block no longer present Electronically Signed On 06-24-2023 11:01:56 EST by DANISH SOLANO
[2023-06-23] MEDS: 0.9 % SODIUM CHLORIDE 1,000 ML 1000 ML IV (12:40)
[2023-06-23 14:44] LABS: Magnesium 2.1 mg/dL (1.8-2.4)
[2023-06-23 14:58] LABS: TSH W/ REFLEX FT4 0.701 uIU/mL (0.358-3.740)
--- NOTE | 2023-06-23 15:16 | P.HP_ITS ---
<Statement entered by Mike Lawrence MD - 06/23/23 17:06> . Agree with input and findings from nurse practitioner. Patient not seen but chart reviewed Will discuss possible checking occult blood with significantly elevated BUN and creatinine, and the anemia, possible GI bleed as a source of both. Specifically feel he is dehydrated his hemoglobin being low may be significant, or could be chronic. Continue supplementation if all goes well with hydration overnight and feels improved, will discharge tomorrow HPI H&P: HPI History of Present Illness Chief complaint: WEAKNESS/DEHYDRATION SANTY DEHYDRATION Narrative: 06/23/23 2695 This is a 77 year old male patient with a PMH as outlined below including CAD s/p HI and PCI x 2 stents, DM2, and HTN; who presented to the ED c/o 2-3 weeks of upper abdominal pain, nausea, decreased appetite and diarrhea. He denies vomiting but reported eating and drinking increased his upper abdominal pain. He denies urinary symptoms, denies hematuria or hematochezia or melena. No reported fevers or chills. He reports approximately 20 pound weight loss over the last 1 to 2 months. He presented to the ED for further evaluation. Workup in the ED revealed hypotension (77/45), leukocytosis (15.2), SANTY with severe dehydration (BUN 112, CR 1.83, GFR 36, BUNs/CR ratio 61.2), and hyperglycemia (228). A lipase was unremarkable. A UA was ordered in the ED but not collected prior to admission to the medical floor. A CT of the abdomen was unremarkable and revealed no acute disease process. He is being admitted to the hospitalist service in observation for SANTY and dehydration and leukocytosis without clear infectious source. At the time of my exam the patient is resting comfortably in bed on the medical floor. On further questioning of the patient he reports that he had severe constipation about 2 to 3 weeks ago. He did finally took a laxative about 2 days ago which resolved his constipation. He experienced a small amount of diarrhea at that time but has not had any recurrent diarrhea. He describes his abdominal pain as bilateral lower quadrant during my exam in contrast to the report in the ED of upper abdominal pain. He also describes his vomiting is occurring when he tried to follow-up pill that got stuck and caused him to vomit. He denies nausea prior to that episode. He is experienced some mild transitory nausea since that time but has had no further vomiting. He reports decreased oral intake but has difficulty describing why that he has not been taking in more food. He reports drinking a lot of soup broth, but notes that he has been able to keep down wonton soup, omental loaf, and sliced roast beef lunchmeat. The etiology of his poor intake is unclear, but it appears that he is afraid he will experience recurrent abdominal pain and distention with eating. He currently denies any abdominal pain. He will be treated with IV fluids, and we will hold all renal toxic meds for now due to his SNATY. A UA has been collected and is negative for a UTI. Opioid HPI Opioid Management Most Recent Opioid Data: Last ORT Total Score 0 06/23/23 15:23 Last ORT Risk Category Low Risk 06/23/23 15:23 Review of Systems ROS Status of ROS 10 or more systems reviewed and unremark able except as noted in history and below [facility] Medical History Pulmonary embolism ?I26.99 - Other pulmonary embolism without acute cor pulmonale (ICD-10) Diabetes ?E11.9 - Type 2 diabetes mellitus without complications (ICD-10) Myocardial infarction ?I21.9 - Acute myocardial infarction, unspecified (ICD-10) Hypertension ?I10 - Essential (primary) hypertension (ICD-10) Surgical History History of heart artery stent ?Z95.5 - Presence of coronary angioplasty implant and graft (ICD-10) Previous back surgery ?Z98.890 - Other specified postprocedural states (ICD-10) History of tonsillectomy ?Z90.89 - Acquired absence of other organs (ICD-10) History of cholecystectomy ?Z90.49 - Acquired absence of other specified parts of digestive tract (ICD- 10) Social History Within the past year, how often did you have a drink containing alcohol: never Within the past year, how many standard drinks containing alcohol did you have on a typical day: 1 or 2 Within the past year, how often did you have six or more drinks on one occasion: never Total score: 0 Score interpretation: A score less than 4 is consistent with normal alcohol consumption. Smoking status: Light tobacco smoker Second hand tobacco smoke exposure: No Non-prescribed substance use: denies use Known occupational exposures/hazards: No Highest level of school completed/degree received: Associate degree: academic program Do you want help with school or training: No Are you now , , , , never or living with a partner: never In a typical week, how many times do you talk on the telephone with family, friends, or neighbors: twice per week How often do you get together with friends or relatives: 3 or more times per week How often do you attend jehovah's witness or mosque services: never Do you belong to any clubs or organizations such as jehovah's witness groups unions, [employer] or athletic groups, or school groups: no Total score: 1 Score interpretation: A score of less than or equal to 1 indicates the most socially isolated. Little interest or pleasure in doing things: not at all Feeling down, depressed, or hopeless: not at all Feel stressed/tense/nervous/anxious/difficulty sleeping: not at all Due to disability, difficulty making decisions: No Do you think of yourself as: straight/heterosexual Gender Identity: male Meds Home Medications and Allergies Home Medications Medication Instructions Recorded Confirmed Type atenolol 50 mg tablet 50 mg PO Q24H 09/25/22 06/23/23 History diclofenac sodium 75 mg 75 mg PO Q12H PRN pain 09/25/22 06/23/23 History tablet,delayed release glimepiride 4 mg tablet 4 mg PO BID 09/25/22 06/23/23 History lisinopril 10 mg tablet 10 mg PO DAILY 09/25/22 06/23/23 History metformin 500 mg tablet 1,000 mg PO BID 09/25/22 06/23/23 History tramadol 50 mg tablet 50 mg PO Q12H PRN pain 09/25/22 06/23/23 History Allergies Allergy/AdvReac Type Severity Reaction Status Date / Time No Known Allergies Allergy Unknown Verified 06/23/23 10:46 Exam Constitutional Vital Signs, click to edit/add: Last Vital Signs Temp 97.5 F L 06/23/23 15:07 Pulse 49 L 06/23/23 15:07 Resp 16 06/23/23 15:07 BP 110/61 06/23/23 15:07 Pulse Ox 99 06/23/23 15:07 O2 Del Method Room Air 06/23/23 15:07 Common normals: no apparent distress, oriented x3, alert and well nourished General appearance: cooperative Orientation/consciousness: Yes awake HENNJ Common normals: normocephalic, head/scalp atraumatic, hearing grossly normal bilaterally, external nose normal and moist oral mucous membranes Eye Common normals: PERRL, EOMs intact bilaterally, conjunctivae normal and no scleral icterus Alignment: alignment normal Eyelid: eyelids normal Neck & C-Spine Common normals: full ROM, supple and no JVD Chest Common normals: inspection of chest normal Chest: symmetrical chest wall rise Respiratory Common normals: normal respiratory effort, no retractions, no use of accessory muscles and clear to auscultation bilaterally Effort & inspection: able to speak in complete sentences Cardio Common normals: no JVD, regular rate, regular rhythm, S1 normal heart sound, S2 normal heart sound, no gallops, no clicks, no murmurs, no rub and peripheral pulses 2+ throughout GI Common normals: Normal to inspection, nondistended, normoactive bowel sounds present, soft to palpation, non-tender, no hepatosplenomegaly, no masses and no bruits Bladder/kidney exam: bladder normal to palpation Back & Pelvis Common normals: thoracic and lumbar spine normal to inspection Extremity Common normals: normal capillary refill and no pedal edema General: normal exam except as noted; no clubbing and no cyanosis Neuro [place] Coma Scale: GCS not evaluated Common normals: CN's II-XII intact bilaterally, moves all extremities, no focal motor deficits and no sensory deficits noted Speech: speech normal Motor exam: strength 5/5 throughout Psych Common normals: mental status grossly normal, thought process normal, affect normal and activity/motor behavior normal Results Labs Labs: Short CBC 06/23/23 Range/Units 10:49 WBC 15.2 H (4.0-11.0) 10^3/uL Hgb 11.3 L (14.0-18.0) g/dL Hct 34.7 L (42.0-54.0) % Plt Count 340 (150-450) 10^3/uL BMP 06/23/23 10:49 Sodium 136 Potassium 4.4 Chloride 98 Carbon Dioxide 24.5 BUN 112.0 H* Creatinine 1.83 H Glucose 228 H Calcium 9.5 Liver Function 06/23/23 Range/Units 10:49 Total Bilirubin 0.4 (0.2-1.0) mg/dL AST 23 (15-37) U/L ALT 41 (16-63) U/L Alkaline Phosphatase 61 (46-116) U/L Albumin 3.0 L (3.4-5.0) g/dL Pulse Oximetry Attestation: I have reviewed the pertinent pulse oximetry results. Imaging CT scan - abdomen: Attestation: I have reviewed the pertinent imaging results. Radiologist's impression: IMPRESSION: 1. No acute or suspicious findings to account for patient's symptoms. 2. Mild distal colonic diverticulosis. No acute findings. Assessment and Plan Assessment and Plan (1) Acute kidney injury: Assessment and Plan: Acute * Adm obs * 2/2 severe dehydration * 2L NS IVF boluses given in the ED * Maintenance IVFs w/ NS at 125/hr now * Hold renal toxic meds including home lisinopril, metformin, and diclofenec * CMP daily (2) Acute dehydration: Assessment and Plan: Acute * 2/2 to poor oral intake, possibly exacerbated by diarrhea, but pt is denying significant diarrhea during my exam * See SANTY above * CMP daily to monitor (3) Hypotension: Assessment and Plan: Acute * 2/2 dehydration - no evidence of infection despite leukocytosis, thus low suspicion of sepsis * Resolved w/ IVF administration in the ED * Home lisinopril on hold * Continue home atenolol, but hold for SBP < 110 (4) Leukocytosis: Assessment and Plan: Acute * Suspect 2/2 hemoconcentration with hypovolemia/dehydration * No identified infectious source * Afebrile * CBC daily to monitor (5) Abdominal pain: Assessment and Plan: Acute * Unclear etiology * CT abdomen negative for acute process * Lipase neg * Suspect 2/2 constipation that resolved with laxatives 2 days ago * Pt denies abdominal pain currently and his abdomen is not tender on exam * No further opioids for now as this could cause recurrent constipation * PRN stool softeners * Monitor (6) Diarrhea: Assessment and Plan: Acute * Concern for diarrhea in the ED * Pt now reports only one episode of diarrhea associated with constipation and has resolved * GI panel ordered - pending collection. May not be able to obtain as diarrhea is apparently resolved (7) Weight loss, unintentional: Assessment and Plan: Acute * Pt reports 20# weight loss over 1-2 months, but his history of events is unclear * Dietary consult * Ensure BID * Encourage frequent small meals * TSH WNL (8) Diabetes: Assessment and Plan: Chronic * Continue home glimeperide * Hold home metformin d/t SANTY * ACHS glucometer checks * Med dose SSI for glucose correction (9) Hypertension: Assessment and Plan: Chronic * Hypotensive on arrival, but currently normotensive after IVF administration * Hold home lisinopril d/t SANTY * Continue home atenolol, but hold for SBP < 110
--- OUTSIDE RECORDS SUMMARY | 2023-06-23 15:17 | XMS_ITS | CCD ---
Author Name Unknown Address [address] [place] [address] [facility] Care Team Providers Care Geospatial Systems Integrator Name Role Phone HOUSE, DR BOWSER Primary [...] ROSALINDA, MAXI Jackson Referring Unavailable ROSALINDA, MAXI Jcakson Attending Unavailable ROSALINDA, MAXI Jackson Attending Unavailable [...] disease (2 sources) Atherosclerotic heart disease of [place] coronary artery without angina pectoris; Translations: [Atherosclerotic heart disease of [place] coronary artery without angina pectoris] Onset: 07-27-2022 Chronic Other aftercare (1 source) Other chcf (current) drug therapy; Translations: [OTH HALFWAY CURRENT DRUG THERAPY] Onset: 07-08-2021 Episodic Other aftercare (1 source) assisted (current) use of aspirin; Translations: [MARKETING CONSULTANT CURRENT USE OF ASPIRIN] Onset: 07-08-2021 Episodic Other aftercare (1 source) 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 No family history on file Level of Service:36968 [place] OFFICE/OUTPATIENT ESTABLISHED MOD MDM 30 MIN Normal [facility] Office Visiton 07-27-2022 Follow-up visit [id number] Subramanian 1945 M Date Provider Department Center 07/27/2022 DominikJONATHAN [facility] No family history on file Level of Service:46690 [place] OFFICE/OUTPATIENT ESTABLISHED LOW MDM 20-29 MIN Reason for Visit and Comments: Coronary Artery Disease [187] Hypertension [310984] Normal [facility] Covid-19 PCR (CVDTB)on 03-17 SARS-CoV-2 (COVID-19) RNA LEO+probe Ql (Unsp spec) Not detected Normal NOT DETECTED [facility] Comment on above: Result Comment: When diagnostic testing is negative, the possibility of a false negative should be considered in the context of a patient's recent exposures and the presence of clinical signs and symptoms consistent with SARS-CoV-2. This test is not yet approved or cleared by the [place] Food and Drug Administration (FDA). This test was developed by [employer], [place], [place]. The performance characteristics of this test were validated by [facility]. The results are not intended to be used as the sole means for clinical diagnosis or patient management decisions. [facility] is authorized under Clinical Laboratory [...] for this test is supported by the [place] of Health and Human Service's declaration that [...] used). Performed By: #### C VDTB #### [facility] [address] [place] [address] Dr. Kelly Montoya CBC AUTO DIFFon 11-13-2020 BASO # 0.1 103/ul Normal 0.0-0.1 [facility] Comment on above: Performed By: #### C BC #### [facility] [address] [place] [address] Cortez Ramirez Basophils/100 WBC (Bld) 1.3 % Normal 0.2-2.0 [facility] Comment on above: Performed By: #### C BC #### [facility] [address] [id number] Cortez Ashley EO # 0.4 103/ul Normal 0.0-0.7 [facility] Comment on above: Performed By: #### C BC #### [facility] [address] [place], [place] [id number] Cortez Ashley Eosinophils/100 WBC (Bld) 5.0 % Normal 0.9-7.0 [facility] Comment on above: Performed By: #### C BC #### [facility] [address] [place], [place] [id number] Cortez Ashley Erythrocyte distribution width (RBC) [Ratio] 13.6 % Normal 11.0-15.0 [facility] Comment on above: Performed By: #### C BC #### [facility] [address] [place] [address] Cortez Ashley Hematocrit (Bld) [Volume fraction] 47.6 % Normal 42.0-54.0 [facility] Comment on above: Performed By: #### C BC #### [facility] [address] [place], [place] [id number] Cortez Ashley Hemoglobin (Bld) [Mass/Vol] 15.4 g/dL Normal 14.0-18.0 [facility] Comment on above: Performed By: #### C BC #### [facility] [address] [place], [place] [id number] Cortez Ashley IG # 0.04 10e3/ul Critically high 0.00-0.03 [facility] Comment on above: Performed By: #### C BC #### [facility] [address] [place] [address] Cortez Ahsley IG % 0.6 % Critically high 0.0-0.5 [facility] Comment on above: Performed By: #### C BC #### [facility] [address] [place], [place] [id number] Cortez Ashley LYMPH # 2.0 103/ul Normal 1.2-3.8 [facility] Comment on above: Performed By: #### C BC #### [facility] [address] [place], [place] [id number] Cortez Ashley Lymphocytes/100 WBC (Bld) 27.9 % Normal 20.5-60.0 [facility] Comment on above: Performed By: #### C BC #### [facility] [address] [place], [place] [id number] Cortez Ramirez MANUAL DIFF REQ NO Normal [facility] Comment on above: Performed By: #### C BC #### [facility] [address] [place], [place] [id number] Cortezvioleta Ramirez MCH (RBC) [Entitic mass] 30.3 pg Normal 25.9-34.0 [facility] Comment on above: Performed By: #### C BC #### [facility] [address] [place] [address] Cortezvioleta Ramirez MCHC (RBC) [Mass/Vol] 32.4 g/dL Normal 29.9-35.2 [facility] Comment on above: Performed By: #### C BC #### [facility] [address] [place] [address] Cortezvioleta Ramirez MCV (RBC) [Entitic vol] 93.5 fL Normal 80.0-94.0 [facility] Comment on above: Performed By: #### C BC #### [facility] [address] [place], [place] [address] Cortezvioleta Ramirez MONO # 0.5 103/ul Normal 0.3-0.8 [facility] Comment on above: Performed By: #### C BC #### [facility] [address] [place] [address] Cortezvioleta Ramirez Monocytes/100 WBC (Bld) 7.4 % Normal 1.7-12.0 [facility] Comment on above: Performed By: #### C BC #### [facility] [address] [place], [place] [address] Cortez Ashley NEUT # 4.1 103/ul Normal 1.4-6.5 [facility] Comment on above: Performed By: #### C BC #### [facility] [address] [place], [place] [address] Cortez Ashley Neutrophils/100 WBC (Bld) 57.8 % Normal 43.0-75.0 [facility] Comment on above: Performed By: #### C BC #### [facility] [address] [place], [place] [address] Cortez Ramirez Platelet mean volume (Bld) [Entitic vol] 11.1 fL Normal 9.5-13.5 [facility] Comment on above: Performed By: #### C BC #### [facility] [address] [place], [place] [address] Cortez Ashley PLT 167 103/ul Normal 150-450 [facility] Comment on above: Performed By: #### C BC #### [facility] [address] [place], [place] [address] Cortez Ashley RBC 5.09 106/ul Normal 4.70-6.10 [facility] Comment on above: Performed By: #### C BC #### [facility] [address] [place], [place] [address] Cortez Ashley WBC 7.1 103/ul Normal 4.0-11.0 [facility] Comment on above: Performed By: #### C BC #### [facility] [address] [place], [place] [address] Cortez Ramirez Encounters Encounter Date Encounter Type Care Provider Facility Start: 06-21-2023 End: 06-21-2023 ambulatory [facility] Start: 06-21-2023 End: 06-21-2023 Encounter for other preprocedural examination [facility] Start: 06-06-2023 End: 06-06-2023 ambulatory MAXI TELLEZ Not Available Start: 05-23-2023 End: 05-23-2023 ambulatory MAXI TELLEZ Not Available Start: 05-09-2023 End: 05-10-2023 ambulatory MAXI TELLEZ Not Available Start: 05-08-2023 End: 05-08-2023 ambulatory ROBYN KOWALSKI Not Available Start: 04-25-2023 End: 04-26-2023 ambulatory MAXI TELLEZ Not Available Start: 07-27-2022 End: 07-27-2022 ambulatory [facility] Start: 07-07-2021 End: 07-07-[address] NIELS TOWNSEND Facility:[facility] Start: 03-29-2021 End: 03-29-[address] NIELS TOWNSEND Facility:[facility] Start: 02-09-2021 End: 02-09-2021 ambulatory SUMMERMALORIE PERKINS Facility:[facility] Start: 11-13-2020 End: 11-14-[address] NIELS TOWNSEND Facility:[facility] Start: 07-14-2020 End: 07-15-2020 ambulatory NONE LISTED REQUEST Facility:[facility] Payers Date Payer Category Payer Medicare [id number] 1961 Medicare [id number] 1961 Self-pay 1959 Unknown [id number] 1959 Unknown [id number] 1945 Unknown [id number] 2.16.84 [id number] 1945 Unknown [id number] 2.16.84 [id number] 1945 Unknown [id number] 2.16.84 [id number] 1945 Unknown [id number] 2.16.84 0.1.011988.3.579.2.593 1945 Unknown [id number] 2.16.84 0.1.275019.3.579.2.593 1945 Unknown [id number] 2.16.84 0.1.701472.3.579.2.1259 1945 Unknown [id number] 2.16.84 0.1.716117.3.579.2.1259 1945 Unknown [id number] 2.16.84 0.1.958780.3.579.2.1259 1945 Unknown [id number] 2.16.84 0.1.232834.3.579.2.1259 1945 Unknown [id number] 2.16.84 0.1.088480.3.579.2.1259 1945 Unknown [id number] 2.16.84 0.1.323279.3.579.2.1259 1945 Unknown [id number] 2.16.84 0.1.497277.3.579.2.1259 Unknown [id number] 2.16.84 [id number] Progress note 06-21-2023 Note Date & Type Note Facility 06-21-2023 Note [facility] Cardiology Clinic Note Chief Complaint: Patient here [...] history of Coronary artery disease, Diabetes mellitus ([facility]), Hypertension, and Pulmonary embolism ([facility]). Surgical History He has a past surgical [...] 1. Electrocardiogram abnormal 2. Coronary arteriosclerosis in [place] artery - stents 2006 rca and cirx no sympt (more content not included)... [facility] Progress note 07-27-2022 Note Date & Type Note Facility 07-27-2022 Note [facility] Cardiology Clinic Note Chief Complaint: Patient here [...] electrocardiogram [ECG] [EKG] 2. Coronary arteriosclerosis in [place] artery - stents 2006 rca and cirx no symptoms asa being held He had ischemic stress in september 2015 went on to catherization Lad has mild disease Moderate disease in rca Circumflex is occluded with collateral I25.10: Atherosclerotic heart disease of [place] coronary artery without angina pectoris 3. Type [...] should problems arise Shamar García MD, MPH, [facility], [facility], [facility] Interventional Cardiology Pager Email: [email or web address] Summary Purpose Family History No Family [...] and content) DATE CREATED AUTHOR 03/29/2021 [facility] DATE CREATED AUTHOR AUTHOR'S ORGANIZ ATION 07/08/2021 [facility] DATE CREATED AUTHOR AUTHOR'S ORGANIZ ATION 06/13/2023 [facility] DATE CREATED AUTHOR AUTHOR'S ORGANIZ ATION 06/22/[address] [facility] FOR RECORDS PERTAINING TO PATIENTS WHO [...] BE BASED ON THE PRIMARY CLINICAL RECORDS. [employer] provides no warranty or guarantee of the accuracy or completeness of information in this document.
[2023-06-23 15:19] LABS: Bilirubin Urine NEGATIVE (NEGATIVE); Blood Urine NEGATIVE (NEGATIVE); Clarity Urine CLEAR (CLEAR); Color Urine LT. YELLOW (YELLOW); Glucose Urine UA NEGATIVE (NEGATIVE); Ketones Urine NEGATIVE (NEGATIVE); Leukocyte Esterase Urine TRACE (NEGATIVE); Nitrite Urine NEGATIVE (NEGATIVE); Protein Urine NEGATIVE (NEG/TRACE); Specific Gravity Urine 1.015 (1.005-1.025); Urobilinogen Urine 0.2 EU/dL (0.2-1.0)
[2023-06-23 15:21] LABS: Urine Microscopic Indicated YES
[2023-06-23 15:26] LABS: WBC Urine 0-2 #/HPF (NONE SEEN)
[2023-06-23 15:27] LABS: Bacteria Urine NONE SEEN #/HPF (NONE SEEN); Mucus Urine NONE SEEN (NONE SEEN); RBC Urine NONE SEEN #/HPF (0-2); Squamous Epithelial Cell Urine RARE #/LPF (NONE/RARE)
[2023-06-23 15:28] LABS: Urine Culture Indicated NO
[2023-06-23] MEDS: 0.9 % SODIUM CHLORIDE 1,000 ML 100 ML IV (15:46)
--- NOTE | 2023-06-23 16:04 | SWNOTE1 ---
SW attempted to see pt 2x, nursing and nurse practictioner in room, then pt was using restroom.
[2023-06-23 16:40] LABS: Glucometer 147 mg/dL (74-106)
[2023-06-23] MEDS: INSULIN ASPART 300 UNIT/3 ML PEN SUBQ (17:20)
[2023-06-23] MEDS: 0.9 % SODIUM CHLORIDE 1,000 ML 125 ML IV (17:20)
[2023-06-23] MEDS: ENOXAPARIN SODIUM 40 MG/0.4 ML SYRINGE SUBQ (17:23)
[2023-06-23 20:41] LABS: Glucometer 92 mg/dL (74-106)
[2023-06-24 00:37] VITALS: BP 100/50; PULSE 50; RESP 16; TEMP 36.6; O2SAT 96
[2023-06-24] MEDS: 0.9 % SODIUM CHLORIDE 1,000 ML 125 ML IV ×2 (00:42→08:54)
[2023-06-24 04:40] VITALS: BP 114/52; PULSE 52; RESP 16; TEMP 36.5; O2SAT 99
[2023-06-24 05:13] LABS: Basophils Absolute Auto 0.1 10^3/uL (0.0-0.1); Basophils Percent Auto 0.8 % (0.2-2.0); Eosinophils Absolute Auto 0.2 10^3/uL (0.0-0.7); Eosinophils Percent Auto 1.8 % (0.9-7.0); Hematocrit 28.9 % (42.0-54.0); Hemoglobin 9.2 g/dL (14.0-18.0); Immature Granulocytes Abs Auto 0.04 10^3/uL (0.00-0.03); Immature Granulocytes Pct Auto 0.5 % (0.0-0.5); Lymphocytes Absolute Auto 1.6 10^3/uL (1.2-3.8); Lymphocytes Percent Auto 19.5 % (20.5-60.0); Mean Corpuscular HGB Conc 31.8 g/dL (29.9-35.2); Mean Corpuscular Hemoglobin 29.4 pg (25.9-34.0); Mean Corpuscular Volume 92.3 fL (80.0-94.0); Mean Platelet Volume 9.7 fL (9.5-13.5); Monocytes Absolute Auto 0.6 10^3/uL (0.3-0.8); Monocytes Percent Auto 6.7 % (1.7-12.0); Neutrophils Absolute Auto 5.9 10^3/uL (1.4-6.5); Neutrophils Percent Auto 70.7 % (43.0-75.0); Platelet Count 251 10^3/uL (150-450); Red Blood Count 3.13 10^6/uL (4.70-6.10); Red Cell Distribution Width 13.6 % (11.0-15.0); White Blood Count 8.3 10^3/uL (4.0-11.0)
[2023-06-24 05:24] LABS: Alanine Aminotransferase 31 U/L (16-63); Albumin Globulin Ratio 0.7; Albumin Level 2.5 g/dL (3.4-5.0); Alkaline Phosphatase 49 U/L (46-116); Anion Gap 11.9; Aspartate Amino Transferase 18 U/L (15-37); BUN Creatinine Ratio 64.2; Bilirubin Total 0.2 mg/dL (0.2-1.0); Calcium 8.8 mg/dL (8.5-10.1); Carbon Dioxide 27.9 mmol/L (21.0-32.0); Chloride 107 mmol/L (98-107); Estimated GFR (African America >60 (>=60); Estimated GFR (Non-African Ame >60 (>=60); Globulin 3.5 g/dL; Potassium 3.8 mmol/L (3.5-5.1); Sodium 143 mmol/L (136-145)
[2023-06-24 05:57] LABS: Glucose 43 mg/dL (74-106)
[2023-06-24 06:32] LABS: Glucometer 66 mg/dL (74-106)
[2023-06-24] MEDS: PANTOPRAZOLE SODIUM 40 MG VIAL IV (06:32)
[2023-06-24 09:02] VITALS: BP 94/47; PULSE 56; RESP 16; TEMP 36.3
[2023-06-24 11:42] LABS: Glucometer 123 mg/dL (74-106)
--- NOTE | 2023-06-24 12:13 | P.DS_ITS ---
DS: Providers Provider Date of admission: 06/23/23 14:55 Primary care physician: ROBYN KOWALSKI Consults: 06/23/23 15:27 Consult to Dietitian Routine Reason For Exam: malnutrition Reason for consultation: malnutrition Has provider been notified: No Attending physician on discharge: Shaikh Mikel Discharging clinician: Shaikh Mikel Anticipated date of discharge: 06/24/23 DS: Diagnosis Discharge Diagnosis (1) Acute kidney injury: Assessment and plan: Resolved. Likely prerenal due to poor oral intake (2) Acute dehydration: Assessment and plan: No acute pathology discovered on workup. Likely secondary to poor oral intake. Improved with IV hydration. (3) Hypotension: Assessment and plan: No underlying infectious etiology. Hypotension likely because of recent weight loss of about 20 pounds. Will discontinue his atenolol and lisinopril. (4) Leukocytosis: Assessment and plan: Likely reactive. Resolved. (5) Abdominal pain: Assessment and plan: No significant/acute pathology noted on CT abdomen and pelvis. Pain is intermittent, mild an ongoing for over a month. Will recommend outpatient colonoscopy and further follow-up/workup as per primary care physician Qualifiers: Abdominal location: upper abdomen, unspecified Qualified Code(s): R10.10 - Upper abdominal pain, unspecified (6) Diarrhea: Assessment and plan: Small episodes of mucoid stool, alternating with constipation. Will recommend outpatient colonoscopy. Qualifiers: Diarrhea type: unspecified type Qualified Code(s): R19.7 - Diarrhea, unspecified (7) Weight loss, unintentional: Assessment and plan: Unintentional weight loss of 20 pounds over a period of past one month. Unclear etiology. No acute pathology discovered on workup. No acute pathology/significant findings on CT abdomen and pelvis. Normal thyroid- stimulating hormone. Recommend outpatient colonoscopy and further workup as per her regular physician (8) Diabetes: Assessment and plan: Poor oral intake, and with recent weight loss-I recommended stopping sulfonylurea. He can continue with metformin as outpatient. Defer to PCP for further care Qualifiers: Diabetes mellitus type: type 2 Diabetes mellitus extermination inspector insulin use: without extermination inspector use Diabetes mellitus complication status: without complication Qualified Code(s): E11.9 - Type 2 diabetes mellitus without complications (9) Hypertension: Assessment and plan: He is on atenolol and lisinopril as outpatient I suspect with recent weight loss, he does not require anything for keeping his blood pressure under control. Patient asked to stop atenolol and lisinopril as outpatient. DS: Summary Hospital Course Hospital Course: Patient admitted overnight for acute kidney injury likely secondary to poor oral intake of unclear etiology. His renal function improved with IV hydration. He has had significant weight loss over past one month and because of with, his blood pressure and type 2 diabetes has improved. I recommended stopping his blood pressure medication and follow-up with his PCP as outpatient. Given poor by mouth intake and weight loss, I also recommend stopping his sulfonylurea and continue with metformin for now. Patient encouraged to improve his by mouth intake. He has never had a colonoscopy as far as he can remember and given his unintentional weight loss and vague gastrointestinal symptoms, I would recommend that he gets a colonoscopy as outpatient. Status at Discharge Functional status at discharge: uses cane/walker Overall status at discharge: patient is back to baseline Time Spent with Patient Time attestation: Total time spent providing and/or coordinating discharge services: Time spent: greater than 30 minutes Exam Constitutional Vital Signs, click to edit/add: Last Vital Signs Temp 97.4 F L 06/24/23 09:02 Pulse 56 L 06/24/23 09:02 Resp 16 06/24/23 09:02 BP 94/47 L 06/24/23 09:02 Pulse Ox 99 06/24/23 04:40 O2 Del Method Room Air 06/24/23 04:40 Documenting provider has reviewed patient's vital signs: yes Common normals: no apparent distress and oriented x3 General appearance: cooperative HENMT Common normals: normocephalic and head/scalp atraumatic Head and scalp: normocephalic and atraumatic Eye Common normals: conjunctivae normal and no scleral icterus Conjunctiva: conjunctiva(e) normal Respiratory Common normals: normal respiratory effort and clear to auscultation bilaterally Effort & inspection: able to speak in complete sentences Auscultation: clear to auscultation bilaterally Cardio Common normals: regular rate, S1 normal heart sound and S2 normal heart sound Rate: regular rate Heart sounds: S1 normal and S2 normal GI Common normals: Normal to inspection, nondistended, normoactive bowel sounds present, soft to palpation, non-tender and no hepatosplenomegaly Palpation: soft and no hepatosplenomegaly Extremity Common normals: no clubbing, cyanosis or edema Neuro Common normals: oriented x3, moves all extremities and no focal motor deficits Psych Common normals: mental status grossly normal, denies hallucinations, denies homicidal ideation and denies suicidal ideation DS: Data Data Completed and Pending Labs on day of discharge: Labs from last 24 hours 06/24/23 06/24/23 06/24/23 11:41 06:31 04:37 WBC 8.3 RBC 3.13 L Hgb 9.2 L Hct 28.9 L MCV 92.3 MCH 29.4 MCHC 31.8 RDW 13.6 Plt Count 251 MPV 9.7 Neut % (Auto) 70.7 Lymph % (Auto) 19.5 L [place] % (Auto) 6.7 Eos % (Auto) 1.8 Baso % (Auto) 0.8 Neut # (Auto) 5.9 Lymph # (Auto) 1.6 [place] # (Auto) 0.6 Eos # (Auto) 0.2 Baso # (Auto) 0.1 Abs Immat Gran (auto) 0.04 H Imm/Tot Granulo (auto) 0.5 Sodium 143 Potassium 3.8 Chloride 107 Carbon Dioxide 27.9 Anion Gap 11.9 BUN 70.0 H Creatinine 1.09 Est GFR ( Amer) >60 Est GFR (Non-Af Amer) >60 BUN/Creatinine Ratio 64.2 Glucose 43 L* Calcium 8.8 Magnesium Total Bilirubin 0.2 AST 18 ALT 31 Alkaline Phosphatase 49 Total Protein 6.0 L Albumin 2.5 L Globulin 3.5 Albumin/Globulin Ratio 0.7 TSH & Free T4 Interp Urine Color Urine Clarity Urine pH Ur Specific [place] Urine Protein Urine Glucose (UA) Urine Ketones Urine Occult Blood Urine Nitrite Urine Bilirubin Urine Urobilinogen Ur Leukocyte Esterase Urine RBC Urine WBC Ur Squamous Epith Cells Urine Bacteria Urine Mucus Ur Culture Indicated? POC Glucose 123 H 66 L 06/23/23 06/23/23 06/23/23 20:40 16:39 14:30 WBC RBC Hgb Hct MCV MCH MCHC RDW Plt Count MPV Neut % (Auto) Lymph % (Auto) [place] % (Auto) Eos % (Auto) Baso % (Auto) Neut # (Auto) Lymph # (Auto) [place] # (Auto) Eos # (Auto) Baso # (Auto) Abs Immat Gran (auto) Imm/Tot Granulo (auto) Sodium Potassium Chloride Carbon Dioxide Anion Gap BUN Creatinine Est GFR ( Amer) Est GFR (Non-Af Amer) BUN/Creatinine Ratio Glucose Calcium Magnesium Total Bilirubin AST ALT Alkaline Phosphatase Total Protein Albumin Globulin Albumin/Globulin Ratio TSH & Free T4 Interp Urine Color Lt. yellow Urine Clarity Clear Urine pH 5.0 Ur Specific [place] 1.015 Urine Protein Negative Urine Glucose (UA) Negative Urine Ketones Negative Urine Occult Blood Negative Urine Nitrite Negative Urine Bilirubin Negative Urine Urobilinogen 0.2 Ur Leukocyte Esterase Trace A Urine RBC None seen Urine WBC 0-2 A Ur Squamous Epith Cells Rare Urine Bacteria None seen Urine Mucus None seen Ur Culture Indicated? No POC Glucose 92 147 H 06/23/23 10:49 WBC RBC Hgb Hct MCV MCH MCHC RDW Plt Count MPV Neut % (Auto) Lymph % (Auto) [place] % (Auto) Eos % (Auto) Baso % (Auto) Neut # (Auto) Lymph # (Auto) [place] # (Auto) Eos # (Auto) Baso # (Auto) Abs Immat Gran (auto) Imm/Tot Granulo (auto) Sodium Potassium Chloride Carbon Dioxide Anion Gap BUN Creatinine Est GFR ( Amer) Est GFR (Non-Af Amer) BUN/Creatinine Ratio Glucose Calcium Magnesium 2.1 Total Bilirubin AST ALT Alkaline Phosphatase Total Protein Albumin Globulin Albumin/Globulin Ratio TSH & Free T4 Interp 0.701 Urine Color Urine Clarity Urine pH Ur Specific [place] Urine Protein Urine Glucose (UA) Urine Ketones Urine Occult Blood Urine Nitrite Urine Bilirubin Urine Urobilinogen Ur Leukocyte Esterase Urine RBC Urine WBC Ur Squamous Epith Cells Urine Bacteria Urine Mucus Ur Culture Indicated? POC Glucose Discharge Plan Discharge Disposition: Home, Self-Care Discharge Medications: New omeprazole 40 mg capsule,delayed release(DR/EC) 40 mg PO DAILY Qty: 30 0RF Continued metformin 500 mg tablet 1,000 mg PO BID tramadol 50 mg tablet 50 mg PO Q12H PRN (Reason: pain) Discontinued diclofenac sodium 75 mg tablet,delayed release (DR/EC) 75 mg PO Q12H PRN (Reason: pain) atenolol 50 mg tablet 50 mg PO Q24H glimepiride 4 mg tablet 4 mg PO BID lisinopril 10 mg tablet 10 mg PO DAILY Activity: increase activity as tolerated Diet: advance to your usual diet Forms: Portal Instructions Follow Up Appointments: Follow up with PCP in one week
--- NOTE | 2023-06-27 13:30 | CM.DCFOLLOWU ---
Person spoke with: patient How are you feeling? better How is your pain? no pain Did you understand your discharge instructions? yes, came to ED and they assisted with review of medications from discharge Do you have any questions about your discharge instructions? no Were you given any prescriptions at discharge? yes Were you able to get your prescriptions filled? yes Do you understand how to take your medications as ordered? voiced he does now Do you have any questions about your follow up appointment and do you plan to keep your follow up appointment? no questions, follow up with Dr. Cardona's nurse practitioner Is there anything else that you would like to discuss? no Questions/Comments/Concerns/Other: N/A
[2023-06-29 15:34] VITALS: BMI 20.8
== END 2023-06-24 13:00 | disposition home or self-care (01) ==
LOC: ER 14:07 → MS 15:10
PROVIDERS: Nurse Practitioner; Admitting Provider Family Medicine; Emergency Provider Emergency Medicine; PCP Internal Medicine; Visit Provider Internal Medicine
DX: N17.9 Acute kidney failure, unspecified (principal); E86.0 Dehydration; I95.9 Hypotension, unspecified; D72.829 Elevated white blood cell count, unspecified; R19.7 Diarrhea, unspecified; R10.10 Upper abdominal pain, unspecified; R63.4 Abnormal weight loss; E11.9 Type 2 diabetes mellitus without complications; I10 Essential (primary) hypertension; I25.10 Atherosclerotic heart disease of native coronary artery without angina pectoris; Z68.20 Body mass index [BMI] 20.0-20.9, adult; Z95.5 Presence of coronary angioplasty implant and graft; I25.2 Old myocardial infarction; Z86.711 Personal history of pulmonary embolism; Z90.49 Acquired absence of other specified parts of digestive tract; Z90.89 Acquired absence of other organs; Z98.890 Other specified postprocedural states; F17.210 Nicotine dependence, cigarettes, uncomplicated; Z79.899 Other long term (current) drug therapy; Z79.84 Long term (current) use of oral hypoglycemic drugs
CPT/HCPCS: 36415; 74177; 80053; 81001; 82948; 83690; 83735; 84443; 85025; 87507; 93005; 96361; 96372; 96374; 96375; 96376; 99285; G0328; G0378; J1170; Q9966

== ENCOUNTER 2023-06-26 10:53 | Emergency (ER) | payer MEDICARE, BC, SELFPAY ==
[2023-06-26 10:59] VITALS: BP 135/50; PULSE 56; RESP 18; TEMP 36.5; O2SAT 97; BMI 20.9
--- OUTSIDE RECORDS SUMMARY | 2023-06-26 11:03 | XMS_ITS | CCD ---
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; Translations: [OTH MCFP CURRENT DRUG THERAPY] Onset: 07-08-2021 Episodic Other aftercare (1 source) halfway (current) use of aspirin; Translations: [SKIAGRAPHER CURRENT USE OF ASPIRIN] Onset: 07-08-2021 Episodic Other aftercare (1 source) halfway (current) use of oral hypoglycemic drugs; Translations: [SKIAGRAPHER USE ORAL HYPOGLYCEMIC DX] Onset: 07-08-2021 Episodic [...] Reference Range Facil ity Follow-Upon 06-21-2023 Follow-Up [id number] Celestino Chung 1945 M Date Provider Department [facility]20[facility] No family history on file Level of Service:98018 [place] OFFICE/OUTPATIENT ESTABLISHED MOD MDM 30 MIN Normal [facility] Office Visiton 07-27-2022 Follow-up visit [id number] Subramanian 1945 M Date Provider Department Center 07/27/2022 DominikJONATHAN [facility] No family history on file Level of Service:66849 [place] OFFICE/OUTPATIENT ESTABLISHED LOW MDM 20-29 MIN Reason for Visit and Comments: Coronary Artery Disease [187] Hypertension [979859] Normal [facility] Covid-19 PCR (CVDTB)on 03-17 SARS-CoV-2 (COVID-19) RNA LEO+probe Ql (Unsp spec) Not detected Normal NOT DETECTED [facility] Comment on above: Result Comment: When diagnostic testing is negative, the possibility of a false negative should be considered in the context of a patient's recent exposures and the presence of clinical signs and symptoms consistent with SARS-CoV-2. This test is not yet approved or cleared by the [place] Food and Drug Administration (FDA). This test was developed by [employer], [place], [place]. The performance characteristics of this test were validated by [facility]. The results are not intended to be used as the sole means for clinical diagnosis or patient management decisions. [facility] is authorized under Clinical Laboratory Improvement Amendments [...] for this test is supported by the [place] of Health and Human Service's declaration that [...] used). Performed By: #### C VDTB #### [facility] [address] [place] [address] Dr. Kelly Montoya CBC AUTO DIFFon 11-13-2020 BASO # 0.1 103/ul Normal 0.0-0.1 [facility] Comment on above: Performed By: #### C BC #### [facility] [address] [place] [address] Cortez Ramirez Basophils/100 WBC (Bld) 1.3 % Normal 0.2-2.0 [facility] Comment on above: Performed By: #### C BC #### [facility] [address] [id number] Cortez Ashley EO # 0.4 103/ul Normal 0.0-0.7 [facility] Comment on above: Performed By: #### C BC #### [facility] [address] [place], [place] [id number] Cortez Ashley Eosinophils/100 WBC (Bld) 5.0 % Normal 0.9-7.0 [facility] Comment on above: Performed By: #### C BC #### [facility] [address] [place], [place] [id number] Cortez Ashley Erythrocyte distribution width (RBC) [Ratio] 13.6 % Normal 11.0-15.0 [facility] Comment on above: Performed By: #### C BC #### [facility] [address] [place] [address] Cortez Ashley Hematocrit (Bld) [Volume fraction] 47.6 % Normal 42.0-54.0 [facility] Comment on above: Performed By: #### C BC #### [facility] [address] [place], [place] [id number] Cortez Ashley Hemoglobin (Bld) [Mass/Vol] 15.4 g/dL Normal 14.0-18.0 [facility] Comment on above: Performed By: #### C BC #### [facility] [address] [place], [place] [address] Cortez Ashley IG # 0.04 10e3/ul Critically high 0.00-0.[address] [facility] Comment on above: Performed By: #### C BC #### [facility] [address] [place] [address] Cortez Ashley IG % 0.6 % Critically high 0.0-0.5 [facility] Comment on above: Performed By: #### C BC #### [facility] [address] [place], [place] [id number] Cortez Ashley LYMPH # 2.0 103/ul Normal 1.2-3.8 [facility] Comment on above: Performed By: #### C BC #### [facility] [address] [place], [place] [id number] Cortez Ashley Lymphocytes/100 WBC (Bld) 27.9 % Normal 20.5-60.0 [facility] Comment on above: Performed By: #### C BC #### [facility] [address] [place], [place] [id number] Cortez Ramirez MANUAL DIFF REQ NO Normal [facility] Comment on above: Performed By: #### C BC #### [facility] [address] [place], [place] [address] Cortezvioleta Ramirez MCH (RBC) [Entitic mass] 30.3 pg Normal 25.9-34.0 [facility] Comment on above: Performed By: #### C BC #### [facility] [address] [place] [address] Cortezvioleta Ramirez MCHC (RBC) [Mass/Vol] 32.4 g/dL Normal 29.9-35.2 [facility] Comment on above: Performed By: #### C BC #### [facility] [address] [place] [address] Cortezvioleta Ramirez MCV (RBC) [Entitic vol] 93.5 fL Normal 80.0-94.0 [facility] Comment on above: Performed By: #### C BC #### [facility] [address] [place], [place] [address] Cortezvioleta Ramirez MONO # 0.5 103/ul Normal 0.3-0.8 [facility] Comment on above: Performed By: #### C BC #### [facility] [address] [place] [address] Cortezvioleta Ramirez Monocytes/100 WBC (Bld) 7.4 % Normal 1.7-12.0 [facility] Comment on above: Performed By: #### C BC #### [facility] [address] [place], [place] [address] Cortez Ashley NEUT # 4.1 103/ul Normal 1.4-6.5 [facility] Comment on above: Performed By: #### C BC #### [facility] [address] [place], [place] [address] Cortez Ashley Neutrophils/100 WBC (Bld) 57.8 % Normal 43.0-75.0 [facility] Comment on above: Performed By: #### C BC #### [facility] [address] [place], [place] [address] Cortez Ramirez Platelet mean volume (Bld) [Entitic vol] 11.1 fL Normal 9.5-13.5 [facility] Comment on above: Performed By: #### C BC #### [facility] [address] [place], [place] [address] Cortez Ashley PLT 167 103/ul Normal 150-450 [facility] Comment on above: Performed By: #### C BC #### [facility] [address], [place] [address] Cortez Ashley RBC 5.09 106/ul Normal 4.70-6.10 [facility] Comment on above: Performed By: #### C BC #### [facility] [address] [place], [place] [address] Cortez Ashley WBC 7.1 103/ul Normal 4.0-11.0 [facility] Comment on above: Performed By: #### C BC #### [facility] [address], [place] [address] Cortez Ramirez Encounters Encounter Date Encounter Type Care Provider Facility Start: 06-21-2023 End: 06-21-2023 ambulatory [facility] Start: 06-21-2023 End: 06-21-2023 Encounter for other preprocedural examination [facility] Start: 06-06-2023 End: 06-06-2023 ambulatory MAXI TELLEZ Not Available Start: 05-23-2023 End: 05-23-2023 ambulatory MAXI TELLEZ Not Available Start: 05-09-2023 End: 05-10-2023 ambulatory MAXI TELLEZ Not Available Start: 05-08-2023 End: 05-08-2023 ambulatory ROBYN KOWALSKI Not Available Start: 04-25-2023 End: 04-26-2023 ambulatory MAXI TELLEZ Not Available Start: 07-27-2022 End: 07-27-2022 ambulatory [facility] Start: 07-07-2021 End: 07-07-[address] NIELS TOWNSEND Facility:[facility] Start: 03-29-2021 End: 03-29-[address] NIELS TOWNSEND Facility:[facility] Start: 02-09-2021 End: 02-09-2021 ambulatory SUMMERMALORIE PERKINS Facility:[facility] Start: 11-13-2020 End: 11-14-[address] NIELS TOWNSEND Facility:[facility] Start: 07-14-2020 End: 07-15-2020 ambulatory NONE LISTED REQUEST Facility:[facility] Payers Date Payer Category Payer Medicare [id number] 1961 Medicare [id number] 1959 Self-pay 1959 Unknown [id number] 1959 Unknown [id number] 1945 Unknown [id number] 2.16.84 [id number] 1945 Unknown [id number] 2.16.84 0.1.433845.3.579.2.593 1945 Unknown [id number] 2.16.84 0.1.777985.3.579.2.593 1945 Unknown [id number] 2.16.84 0.1.889426.3.579.2.593 1945 Unknown [id number] 2.16.84 0.1.583680.3.579.2.593 1945 Unknown [id number] 2.16.84 0.1.806420.3.579.2.1259 1945 Unknown [id number] 2.16.84 0.1.602946.3.579.2.1259 1945 Unknown [id number] 2.16.84 0.1.695039.3.579.2.1259 1945 Unknown [id number] 2.16.84 0.1.211212.3.579.2.1259 1945 Unknown [id number] 2.16.84 0.1.523554.3.579.2.1259 1945 Unknown [id number] 2.16.84 0.1.801812.3.579.2.1259 1945 Unknown [id number] 2.16.84 0.1.277569.3.579.2.1259 Unknown [id number] 2.16.84 0.1.267252.3.579.2.593 Progress note 06-21-2023 Note Date & Type Note Facility 06-21-2023 Note [facility] Cardiology Clinic Note Chief Complaint: Patient [...] history of Coronary artery disease, Diabetes mellitus ([facility]), Hypertension, and Pulmonary embolism ([facility]). Surgical History He has a past [...] 1. Electrocardiogram abnormal 2. Coronary arteriosclerosis in [place] artery - stents 2006 rca and cirx no sympt (more content not included)... [facility] Progress note 07-27-2022 Note Date & Type Note Facility 07-27-2022 Note [facility] Cardiology Clinic Note Chief Complaint: Patient [...] electrocardiogram [ECG] [EKG] 2. Coronary arteriosclerosis in [place] artery - stents 2006 rca and cirx no symptoms asa being held He had ischemic stress in september 2015 went on to catherization Lad has mild disease Moderate disease in rca Circumflex is occluded with collateral I25.10: Atherosclerotic heart disease of [place] coronary artery without angina pectoris 3. Type [...] should problems arise Shamar García MD, MPH, [facility], [facility], [facility] Interventional Cardiology Pager Email: [email or web address] Summary Purpose Family History No Family History [...] and content) DATE CREATED AUTHOR 03/29/2021 [facility] DATE CREATED AUTHOR AUTHOR'S ORGANIZ ATION 07/08/2021 [facility] DATE CREATED AUTHOR AUTHOR'S ORGANIZ ATION 06/13/2023 [facility] DATE CREATED AUTHOR AUTHOR'S ORGANIZ ATION 06/22/2023 [facility] FOR RECORDS PERTAINING TO PATIENTS WHO ARE [...] BE BASED ON THE PRIMARY CLINICAL RECORDS. [employer] provides no warranty or guarantee of the accuracy or completeness of information in this document.
--- NOTE | 2023-06-26 11:28 | PC.NURSE ---
Pt has been repeatedly asked if he has any complaints today and has denied every time. states he just wants to figure out what medications he is supposed to be on. Pt did bring d/c instructions from monday, where he was admitted here at [facility] for dehydration. D/c'd off of 2 BP medications d/t hypotension, per Dr Morin's provider note. Pt unsure how long to not take those medications. Explained to pt, typically it means indefinitely, until issues arise and PCP wants pt on that medication again. Pt and girlfriend are supposed to make an apt with Dr Cardona today, but state they are going straight there after ER visit.
--- NOTE | 2023-06-26 11:31 | ED.GENADUL1 ---
HPI - General Adult General Chief complaint: Recheck/Abnormal Lab/Rx Time Seen by Provider: 06/26/23 11:13 Source: patient Mode of arrival: walk-in History of Present Illness HPI narrative: 77-year-old male presents with his for questions about his medications. He had been admitted to the hospital for dehydration and was discharged home 2 days ago. He was given instructions on which medications to take but he does not seem to understand them. He has no symptoms today. He has not had follow-up with his PCP. Related Data Home Medications Medication Instructions Recorded Confirmed metformin 500 mg tablet 1,000 mg PO BID 09/25/22 06/23/23 tramadol 50 mg tablet 50 mg PO Q12H PRN pain 09/25/22 06/23/23 Previous Rx's Medication Instructions Recorded omeprazole 40 mg capsule,delayed 40 mg PO DAILY #30 caps 06/24/23 release Allergies Allergy/AdvReac Type Severity Reaction Status Date / Time No Known Allergies Allergy Unknown Verified 06/23/23 10:46 Review of Systems ROS Narrative A ten point review of systems is negative except as noted above. PFSH PFSH Medical History Pulmonary embolism ?I26.99 - Other pulmonary embolism without acute cor pulmonale (ICD-10) Diabetes ?E11.9 - Type 2 diabetes mellitus without complications (ICD-10) Myocardial infarction ?I21.9 - Acute myocardial infarction, unspecified (ICD-10) Hypertension ?I10 - Essential (primary) hypertension (ICD-10) Surgical History History of heart artery stent ?Z95.5 - Presence of coronary angioplasty implant and graft (ICD-10) Previous back surgery ?Z98.890 - Other specified postprocedural states (ICD-10) History of tonsillectomy ?Z90.89 - Acquired absence of other organs (ICD-10) History of cholecystectomy ?Z90.49 - Acquired absence of other specified parts of digestive tract (ICD-10) Social History Within the past year, how often did you have a drink containing alcohol: never Within the past year, how many standard drinks containing alcohol did you have on a typical day: 1 or 2 Within the past year, how often did you have six or more drinks on one occasion: never Total score: 0 Score interpretation: A score less than 4 is consistent with normal alcohol consumption. Smoking status: Light tobacco smoker Second hand tobacco smoke exposure: No Non-prescribed substance use: denies use Known occupational exposures/hazards: No Highest level of school completed/degree received: Associate degree: academic program Do you want help with school or training: No Are you now , , , , never or living with a partner: never In a typical week, how many times do you talk on the telephone with family, friends, or neighbors: twice per week How often do you get together with friends or relatives: 3 or more times per week How often do you attend synagogue or christianity services: never Do you belong to any clubs or organizations such as synagogue groups unions, fraternal or athletic groups, or school groups: no Total score: 1 Score interpretation: A score of less than or equal to 1 indicates the most socially isolated. Little interest or pleasure in doing things: not at all Feeling down, depressed, or hopeless: not at all Feel stressed/tense/nervous/anxious/difficulty sleeping: not at all Due to disability, difficulty making decisions: No Do you think of yourself as: straight/heterosexual Gender Identity: male Exam Narrative Exam Narrative: Nurses note and vital signs reviewed and patient is not hypoxic. General: The patient appears well and in no apparent distress. Patient is resting comfortably on cart. Skin: Warm, dry, no pallor noted. There is no rash noted. Head: Normocephalic, atraumatic, EOMI. PERRL Ears, Nose, Mouth, and Throat: oral mucosa is moist. Nares patent. Cardiovascular: Regular Rate and Rhythm Respiratory: Patient is in no distress, no accessory muscle use, lungs are clear to auscultation, no wheezing, rales or rhonchi Back: non-tender GI: Soft and nontender Musculoskeletal: The patient has no evidence of calf tenderness, no pitting edema, symmetrical pulses noted bilaterally Neurological: A&O, normal speech Psychiatric: Cooperative Constitutional Vital Signs, click to edit/add: Last Vital Signs Temp 97.7 F 06/26/23 10:59 Pulse 56 L 06/26/23 10:59 Resp 18 06/26/23 10:59 BP 135/50 06/26/23 10:59 Pulse Ox 97 06/26/23 10:59 O2 Del Method Room Air 06/26/23 10:59 Course Vital Signs Vital signs: Vital Signs Temperature 97.7 F 06/26/23 10:59 Pulse Rate 56 L 06/26/23 10:59 Respiratory Rate 18 06/26/23 10:59 Blood Pressure 135/50 06/26/23 10:59 Pulse Oximetry 97 06/26/23 10:59 Oxygen Delivery Method Room Air 06/26/23 10:59 Temperature 97.7 F 06/26/23 10:59 Pulse Rate 56 L 06/26/23 10:59 Respiratory Rate 18 06/26/23 10:59 Blood Pressure 135/50 06/26/23 10:59 Pulse Oximetry 97 06/26/23 10:59 Oxygen Delivery Method Room Air 06/26/23 10:59 Medical Decision Making MDM Narrative Medical decision making narrative: I have extensively gone over his medication list with both the patient and his . I have reviewed his medical records from his very recent inpatient stay. There is no indication for any further workup or readmission to the hospital. He was encouraged to have follow-up with his PCP and he was given clear instructions on which medications he should be on. Differential Diagnosis Differential Diagnosis: Medication concern Discharge Plan Discharge Stand Alone Forms: Portal Instructions Chief Complaint: Recheck/Abnormal Lab/Rx Clinical Impression: Medication care plan discussed with patient Patient Disposition: Home, Self-Care Time of Disposition Decision: 11:30 Condition: Good Mode of Transportation: Private Vehicle Prescriptions / Home Meds: No Action metformin 500 mg tablet 1,000 mg PO BID tramadol 50 mg tablet 50 mg PO Q12H PRN (Reason: pain) omeprazole 40 mg capsule,delayed release(DR/EC) 40 mg PO DAILY Qty: 30 0RF Instructions: Dehydration (ED) Additional Instructions: Do not take any other medications until Dr. Velarde instructs you to do so. Referrals: ROBYN KOWALSKI [Primary Care Provider] - 1 week
== END 2023-06-26 11:56 | disposition home or self-care (01) ==
PROVIDERS: Emergency Provider Emergency Medicine; PCP Internal Medicine
DX: Z09 Encounter for follow-up examination after completed treatment for conditions other than malignant neoplasm (principal)
CPT/HCPCS: 99281

== ENCOUNTER 2023-07-19 09:51 | Emergency (ER) | payer MEDICARE, BC, SELFPAY ==
[2023-07-19 10:00] VITALS: BP 159/49; PULSE 51; TEMP 36.5; O2SAT 100; BMI 20.5
--- NOTE | 2023-07-19 10:06 | XR_ITS ---
The [address] [address] Patient Name: KATHE VICTOR MRN: [id number] date: 1945 Sex: M Assigned Patient Location: ER Current Patient Location: ER Accession/Order Number: [id number] Exam Date: 07/19/2023 10:20 Report Date: 07/19/2023 10:40 At the request of: EUNICE LANGFORD Procedure: XR cervical spine 2-3V EXAMINATION: XR cervical spine 2-3V HISTORY: Atraumatic pain ; posterior neck pain COMPARISON: No relevant comparison available. FINDINGS: BONES: Marked reversal of normal lordotic curvature. Moderate degenerative facet arthropathy C2-3 through C5-6. Lower levels are not visible through the shoulder structures. No visible fracture or spondylolisthesis. DISC SPACES: Mild narrowing C4-5. Moderate narrowing C5-6. Lower levels are not visible. PARASPINOUS: Negative. No paraspinous abnormality is seen. OTHER: Negative. XR/XR cervical spine 2-3V IMPRESSION: 1. Limited evaluation since the C6, C7, and T1 levels could not be seen through the shoulder structures. Moderate degenerative changes without appreciable acute abnormality. 2. Marked reversal of normal lordotic curvature of uncertain etiology. Compression fracture of lower cervical levels could not be excluded. Consider MRI for further evaluation. Electronically authenticated by: ELTON DING Date: 07/19/2023 10:40
--- NOTE | 2023-07-19 10:07 | ED.NECK1 ---
HPI HPI - Neck Pain/Injury General Chief Complaint: Neck Pain/Injury Stated Complaint: NECK PAIN Time Seen by Provider: 07/19/23 09:53 Source: patient and family Mode of arrival: walk-in Limitations: no limitations History of Present Illness HPI Narrative: 77-year-old male presents for pain in his neck. He gives no history of trauma though he fell a few days ago. He does not associate his neck pain with fall. He did hurt his left hand and had x-rays that his reports were negative, these were performed at another facility. He did not hit his head. No weakness in his arms or legs. It hurts more to turn his head. Related Data Home Medications ?Medication ?Instructions ?Recorded ?Confirmed metformin 500 mg tablet 1,000 mg PO BID 09/25/22 06/26/23 tramadol 50 mg tablet 50 mg PO Q12H PRN pain 09/25/22 06/26/23 Previous Rx's ?Medication ?Instructions ?Recorded omeprazole 40 mg capsule,delayed 40 mg PO DAILY #30 caps 06/24/23 release methocarbamol 500 mg tablet 500 mg PO Q8H PRN pain #20 tabs 07/19/23 Allergies Allergy/AdvReac Type Severity Reaction Status Date / Time No Known Allergies Allergy Unknown Verified 07/19/23 10:05 Opioid HPI Opioid Management Most Recent Opioid Data: Last Pain Scale 0 06/24/23 06:31 Last ORT Total Score 0 06/23/23 15:23 Last ORT Risk Category Low Risk 06/23/23 15:23 Review of Systems ROS Narrative A ten point review of systems is negative except as noted above. PFSH PFSH Medical History Pulmonary embolism ?I26.99 - Other pulmonary embolism without acute cor pulmonale (ICD-10) Diabetes ?E11.9 - Type 2 diabetes mellitus without complications (ICD-10) Myocardial infarction ?I21.9 - Acute myocardial infarction, unspecified (ICD-10) Hypertension ?I10 - Essential (primary) hypertension (ICD-10) Surgical History History of heart artery stent ?Z95.5 - Presence of coronary angioplasty implant and graft (ICD-10) Previous back surgery ?Z98.890 - Other specified postprocedural states (ICD-10) History of tonsillectomy ?Z90.89 - Acquired absence of other organs (ICD-10) History of cholecystectomy ?Z90.49 - Acquired absence of other specified parts of digestive tract (ICD-10) Social History Within the past year, how often did you have a drink containing alcohol: never Within the past year, how many standard drinks containing alcohol did you have on a typical day: 1 or 2 Within the past year, how often did you have six or more drinks on one occasion: never Total score: 0 Score interpretation: A score less than 4 is consistent with normal alcohol consumption. Smoking status: Light tobacco smoker Second hand tobacco smoke exposure: No Non-prescribed substance use: denies use Known occupational exposures/hazards: No Highest level of school completed/degree received: Associate degree: academic program Do you want help with school or training: No Are you now , , , , never or living with a partner: never In a typical week, how many times do you talk on the telephone with family, friends, or neighbors: twice per week How often do you get together with friends or relatives: 3 or more times per week How often do you attend uatsdin or episcopalian services: never Do you belong to any clubs or organizations such as uatsdin groups unions, fraternal or athletic groups, or school groups: no Total score: 1 Score interpretation: A score of less than or equal to 1 indicates the most socially isolated. Little interest or pleasure in doing things: not at all Feeling down, depressed, or hopeless: not at all Feel stressed/tense/nervous/anxious/difficulty sleeping: not at all Due to disability, difficulty making decisions: No Do you think of yourself as: straight/heterosexual Gender Identity: male Exam Narrative Exam Narrative: Nurses note and vital signs reviewed and patient is not hypoxic. General: The patient appears in no apparent distress. He appears mildly uncomfortable Skin: Warm, dry, no pallor noted. There is no rash noted. Head: Normocephalic, atraumatic Eye: Normal conjunctiva, no drainage Ears, Nose, Mouth, and Throat: oral mucosa is moist. Nares patent. Cardiovascular: Not tachycardic Respiratory: Patient is in no distress, no accessory muscle use, lungs are clear to auscultation, no wheezing, rales or rhonchi Back: Lumbar and thoracic spines are nontender. He has no deformity in his neck. Range of motion causes discomfort in his neck. No masses are appreciated GI: Soft and nontender Musculoskeletal: The patient has no evidence of calf tenderness, no pitting edema, symmetrical pulses noted bilaterally Neurological: Awake and alert Psychiatric: Cooperative Constitutional Vital Signs, click to edit/add: Last Vital Signs Temp 97.7 F 07/19/23 10:00 Pulse 51 L 07/19/23 10:00 Resp 18 07/19/23 10:00 BP 159/49 H 07/19/23 10:00 Pulse Ox 100 07/19/23 10:00 O2 Del Method Room Air 07/19/23 10:00 Course Vital Signs Vital signs: Vital Signs Temperature 97.7 F 07/19/23 10:00 Pulse Rate 51 L 07/19/23 10:00 Respiratory Rate 18 07/19/23 10:00 Blood Pressure 159/49 H 07/19/23 10:00 Pulse Oximetry 100 07/19/23 10:00 Oxygen Delivery Method Room Air 07/19/23 10:00 Temperature 97.7 F 07/19/23 10:00 Pulse Rate 51 L 07/19/23 10:00 Respiratory Rate 18 07/19/23 10:00 Blood Pressure 159/49 H 07/19/23 10:00 Pulse Oximetry 100 07/19/23 10:00 Oxygen Delivery Method Room Air 07/19/23 10:00 MDM - Neck Pain/Injury MDM Narrative Medical decision making narrative: X-ray findings are discussed with patient and his family. He was given IM Norflex here and seems to be improved and is discharged home on Robaxin. Treatment diagnosis and follow-up were discussed thoroughly. Differential Diagnosis Differential diagnosis: Likely disc disorder of cervical region, cervical radiculopathy, torticollis and strain of neck muscle Lab Data Attestation: I reviewed the patient's lab results. Labs: Lab Results 07/19/23 Range/Units 11:09 WBC 8.0 (4.0-11.0) 10^3/uL RBC 3.90 L (4.70-6.10) 10^6/uL Hgb 12.0 L (14.0-18.0) g/dL Hct 36.7 L (42.0-54.0) % MCV 94.1 H (80.0-94.0) fL MCH 30.8 (25.9-34.0) pg MCHC 32.7 (29.9-35.2) g/dL RDW 15.4 H (11.0-15.0) % Plt Count 203 (150-450) 10^3/uL MPV 9.8 (9.5-13.5) fL Neut % (Auto) 79.1 H (43.0-75.0) % Lymph % (Auto) 11.8 L (20.5-60.0) % [place] % (Auto) 7.8 (1.7-12.0) % Eos % (Auto) 0.4 L (0.9-7.0) % Baso % (Auto) 0.7 (0.2-2.0) % Neut # (Auto) 6.3 (1.4-6.5) 10^3/uL Lymph # (Auto) 1.0 L (1.2-3.8) 10^3/uL [place] # (Auto) 0.6 (0.3-0.8) 10^3/uL Eos # (Auto) 0.0 (0.0-0.7) 10^3/uL Baso # (Auto) 0.1 (0.0-0.1) 10^3/uL Abs Immat Gran (auto) 0.02 (0.00-0.03) 10^3/uL Imm/Tot Granulo (auto) 0.2 (0.0-0.5) % Sodium 140 (136-145) mmol/L Potassium 3.3 L (3.5-5.1) mmol/L Chloride 100 (98-107) mmol/L Carbon Dioxide 26.9 (21.0-32.0) mmol/L Anion Gap 16.4 BUN 9.0 (7.0-18.0) mg/dL Creatinine 0.90 (0.70-1.30) mg/dL Est GFR ( Amer) >60 (>=60) Est GFR (Non-Af Amer) >60 (>=60) BUN/Creatinine Ratio 10.0 Glucose 166 H (74-106) mg/dL Calcium 8.9 (8.5-10.1) mg/dL Discharge Plan Discharge Stand Alone Forms: Portal Instructions Chief Complaint: Neck Pain/Injury Clinical Impression: Acute neck pain Patient Disposition: Home, Self-Care Time of Disposition Decision: 12:26 Condition: Good Mode of Transportation: Private Vehicle Prescriptions / Home Meds: New methocarbamol 500 mg tablet 500 mg PO Q8H PRN (Reason: pain) Qty: 20 0RF No Action metformin 500 mg tablet 1,000 mg PO BID tramadol 50 mg tablet 50 mg PO Q12H PRN (Reason: pain) omeprazole 40 mg capsule,delayed release(DR/EC) 40 mg PO DAILY Qty: 30 0RF Print Language: Lao Instructions: Acute Neck Pain (ED) Referrals: ROBYN KOWALSKI [Primary Care Provider] - 1 week
[2023-07-19] MEDS: ORPHENADRINE 60 MG/ 2 ML VIAL IM (10:12)
--- OUTSIDE RECORDS SUMMARY | 2023-07-19 10:15 | XMS_ITS | CCD ---
Author Organization [facility] Care Team Providers Care [employer] Name Role Phone HOUSE, DR BOWSER Primary Care Unavailable GABRIELLA, DORA Attending Unavailable GABRIELLA, DORA Consulting Unavailable GABRIELLA, DORA Admitting Unavailable HOUSE, DR BOWSER Primary Care Unavailable MADDIE, SUMMER Admitting Unavailable MADDIE, SUMMER Attending Unavailable HOUSE, DR BOWSER Primary Care Unavailable ROSS, SUMMER Consulting Unavailable REQUEST, DR MARQUEZ LISTED [...] Unavailable HOUSE, DR BOWSER Primary Care Unavailable ELTAHAWY, EHAB Attending Unavailable ELTAHAWY, EHAB Attending Unavailable ROSALINDA, MAXI Jackson Attending Unavailable ROSALINDA, MAXI Jackson Referring Unavailable KOWALSKI, ROBYN Galarza Attending Unavailable ROSALINDA, MAXI Jackson Attending Unavailable ROSALINDA, MAXI Jackson Referring Unavailable ROSALINDA, MAXI Jackson Attending Unavailable ROSALINDA, MAXI Jackson Attending Unavailable HEMMERASHLEY Attending Unavailable KOWALSKI, ROBYN Galarza Attending Unavailable Problems Active Problems Problem Classification [...] (2 sources) Atherosclerotic heart disease of [place] coronary artery without angina pectoris; Translations: [Atherosclerotic heart disease of [place] coronary artery without angina pectoris] Onset: 07-27-2022 Chronic Other aftercare (1 source) Other jail (current) drug therapy; Translations: [OTH [facility] CURRENT DRUG THERAPY] Onset: 07-08-2021 Episodic Other aftercare (1 source) detention (current) use of aspirin; Translations: [[facility] CURRENT USE OF ASPIRIN] Onset: 07-08-2021 Episodic Other aftercare (1 source) detention (current) use of oral hypoglycemic drugs; Translations: [[facility] USE ORAL HYPOGLYCEMIC DX] Onset: 07-08-2021 Episodic [...] Reference Range Facil ity Follow-Upon 06-21-2023 Follow-Up [id number] Celestino Chung 1945 M Date Provider Department Center 06/21/2023 271SHAMAR GAYTAN RUPERT [facility] No family history on file Level of Service:20451 [place] OFFICE/OUTPATIENT ESTABLISHED MOD MDM 30 MIN Normal [facility] Office Visiton 07-27-2022 Follow-up visit [id number] Subramanian 1945 M Date Provider Department Center 07/27/2022 SHAMAR MIKE No family history on file Level of Service:67961 [place] OFFICE/OUTPATIENT ESTABLISHED LOW MDM 20-29 MIN Reason for Visit and Comments: Coronary Artery Disease [187] Hypertension [460304] Normal [facility] Covid-19 PCR (CVDTBH)on 03-17 SARS-CoV-2 (COVID-19) RNA LEO+probe Ql (Unsp spec) Not detected Normal NOT DETECTED [facility] Comment on above: Result Comment: When diagnostic testing is negative, the possibility of a false negative should be considered in the context of a patient's recent exposures and the presence of clinical signs and symptoms consistent with SARS-CoV-2. This test is not yet approved or cleared by the [place] Food and Drug Administration (FDA). This test was developed by [employer], [place], [place]. The performance characteristics of this test were validated by [facility]. The results are not intended to be used as the sole means for clinical diagnosis or patient management decisions. [facility] is authorized under Clinical Laboratory Improvement [...] for this test is supported by the [place] of Health and Human Service's declaration that [...] longer be used). Performed By: #### C VDTBH #### [facility] [address] [place] [address] Dr. Kelly Montoya CBC AUTO DIFFon 11-13-2020 BASO # 0.1 103/ul Normal 0.0-0.1 [facility] Comment on above: Performed By: #### C BC #### [facility] [address] [place] [address] Cortez Ramirez Basophils/100 WBC (Bld) 1.3 % Normal 0.2-2.0 [facility] Comment on above: Performed By: #### C BC #### [facility] [address] [address] Cortez Ashley EO # 0.4 103/ul Normal 0.0-0.7 [facility] Comment on above: Performed By: #### C BC #### [facility] [address] [place], [place] [id number] Cortez Ashley Eosinophils/100 WBC (Bld) 5.0 % Normal 0.9-7.0 [facility] Comment on above: Performed By: #### C BC #### [facility] [address] [place] [address] Cortez Ashley Erythrocyte distribution width (RBC) [Ratio] 13.6 % Normal 11.0-15.0 [facility] Comment on above: Performed By: #### C BC #### [facility] [address] [place] [address] Cortez Ashley Hematocrit (Bld) [Volume fraction] 47.6 % Normal 42.0-54.0 [facility] Comment on above: Performed By: #### C BC #### [facility] [address] [place] [address] Cortez Ashley Hemoglobin (Bld) [Mass/Vol] 15.4 g/dL Normal 14.0-18.0 [facility] Comment on above: Performed By: #### C BC #### [facility] [address] [place] [address] Cortez Ashley IG # 0.04 10e3/ul Critically high 0.00-0.03 [facility] Comment on above: Performed By: #### C BC #### [facility] [address] [place] [address] Cortez Ashley IG % 0.6 % Critically high 0.0-0.5 [facility] Comment on above: Performed By: #### C BC #### [facility] [address] [place], [place] [id number] Cortez Ashley LYMPH # 2.0 103/ul Normal 1.2-3.8 [facility] Comment on above: Performed By: #### C BC #### [facility] [address] [place], [place] [id number] Cortez Ashley Lymphocytes/100 WBC (Bld) 27.9 % Normal 20.5-60.0 [facility] Comment on above: Performed By: #### C BC #### [facility] [address] [place], [place] [id number] Cortez Ramirez MANUAL DIFF REQ NO Normal [facility] Comment on above: Performed By: #### C BC #### [facility] [address] [place], [place] [id number] Cortezvioleta Ramirez MCH (RBC) [Entitic mass] 30.3 pg Normal 25.9-34.0 [facility] Comment on above: Performed By: #### C BC #### [facility] [address] [place] [address] Cortezvioleta Ramirez MCHC (RBC) [Mass/Vol] 32.4 g/dL Normal 29.9-35.2 [facility] Comment on above: Performed By: #### C BC #### [facility] [address] [place] [address] Cortez Ashley MCV (RBC) [Entitic vol] 93.5 fL Normal 80.0-94.0 [facility] Comment on above: Performed By: #### C BC #### [facility] [address] [place] [address] Cortezvioleta Ramirez MONO # 0.5 103/ul Normal 0.3-0.8 [facility] Comment on above: Performed By: #### C BC #### [facility] [address] [place] [address] Cortez Ramirez Monocytes/100 WBC (Bld) 7.4 % Normal 1.7-12.0 [facility] Comment on above: Performed By: #### C BC #### [facility] [address] [place] [address] Cortez Ashley NEUT # 4.1 103/ul Normal 1.4-6.5 [facility] Comment on above: Performed By: #### C BC #### [facility] [address] [place], [place] [id number] Cortezvioleta Ramirez Neutrophils/100 WBC (Bld) 57.8 % Normal 43.0-75.0 [facility] Comment on above: Performed By: #### C BC #### [facility] [address] [place], [place] [address] Cortez Ramirez Platelet mean volume (Bld) [Entitic vol] 11.1 fL Normal 9.5-13.5 [facility] Comment on above: Performed By: #### C BC #### [facility] [address] [place], [place] [address] Cortez Ashley PLT 167 103/ul Normal 150-450 [facility] Comment on above: Performed By: #### C BC #### [facility] [address] [place], [place] [address] Cortez Ashley RBC 5.09 106/ul Normal 4.70-6.10 [facility] Comment on above: Performed By: #### C BC #### [facility] [address] [place], [place] [address] Cortez Ashley WBC 7.1 103/ul Normal 4.0-11.0 [facility] Comment on above: Performed By: #### C BC #### [facility] [address] [place], [place] [address] Cortez Ramirez Encounters Encounter Date Encounter Type Care Provider Facility Start: 07-06-2023 End: 07-06-2023 ambulatory ROBYN KOWALSKI Not Available Start: 06-27-2023 End: 06-27-2023 ambulatory ASHLEY CHAO Not Available Start: 06-21-2023 End: 06-21-2023 ambulatory [facility] Start: 06-21-2023 End: 06-21-2023 Encounter for other preprocedural examination [facility] Start: 06-06-2023 End: 06-06-2023 ambulatory MAXI TELLEZ Not Available Start: 05-23-2023 End: 05-23-2023 ambulatory MAXI TELLEZ Not Available Start: 05-09-2023 End: 05-10-2023 ambulatory MAXI TELLEZ Not Available Start: 05-08-2023 End: 05-08-2023 ambulatory ROBYN KOWALSKI Not Available Start: 04-25-2023 End: 04-26-2023 ambulatory MAXI TELLEZ Not Available Start: 07-27-2022 End: 07-27-2022 ambulatory EHAB [facility] Start: 07-07-2021 End: 07-07-[address] NIELS TOWNSEND Facility:[facility] Start: 03-29-2021 End: 03-29-[address] NIELS TOWNSEND Facility:[facility] Start: 02-09-2021 End: 02-09-2021 ambulatory SUMMER PERKINS Facility:[facility] Start: 11-13-2020 End: 11-14-[address] NIELS TOWNSEND Facility:[facility] Start: 07-14-2020 End: 07-15-2020 ambulatory NONE LISTED REQUEST Facility:[facility] Payers Date Payer Category Payer Medicare [id number] 1959 Medicare [id number] 1959 Self-pay 1959 Unknown [id number] 1959 Unknown [id number] 1945 Unknown [id number] 2.16.84 0.1.058142.3.579.2.593 1945 Unknown [id number] 2.16.84 0.1.352505.3.579.2.593 1945 Unknown [id number] 2.16.84 0.1.657336.3.579.2.593 1945 Unknown [id number] 2.16.84 0.1.950533.3.579.2.593 1945 Unknown [id number] 2.16.84 0.1.809132.3.579.2.593 1945 Unknown [id number] 2.16.84 0.1.598023.3.579.2.1259 1945 Unknown [id number] 2.16.84 0.1.407942.3.579.2.1259 1945 Unknown [id number] 2.16.84 0.1.580675.3.579.2.1259 1945 Unknown [id number] 2.16.84 0.1.961840.3.579.2.1259 1945 Unknown [id number] 2.16.84 0.1.913128.3.579.2.1258 1945 Unknown [id number] 2.16.84 0.1.684460.3.579.2.1258 1945 Unknown [id number] 2.16.84 0.1.886245.3.579.2.1258 1945 Unknown [id number] 2.16.84 0.1.011765.3.579.2.1258 1945 Unknown [id number] 2.16.84 0.1.100595.3.579.2.1259 Unknown [id number] 2.16.84 0.1.922721.3.579.2.593 Progress note 06-21-2023 Note Date & Type Note Facility 06-21-2023 Note [facility] Cardiology Clinic Note Chief Complaint: [...] history of Coronary artery disease, Diabetes mellitus (CMS/HCC), Hypertension, and Pulmonary embolism (CMS/HCC). Surgical History He has a past surgical [...] Electrocardiogram abnormal 2. Coronary arteriosclerosis in [place] artery - stents 2006 rca and cirx no sympt (more content not included)... [facility] Progress note 07-27-2022 Note Date & Type Note Facility 07-27-2022 Note [facility] Cardiology Clinic Note Chief Complaint: [...] [ECG] [EKG] 2. Coronary arteriosclerosis in [place] artery - stents 2006 rca and cirx no symptoms asa being held He had ischemic stress in september 2015 went on to catherization Lad has mild disease Moderate disease in rca Circumflex is occluded with collateral I25.10: Atherosclerotic heart disease of [place] coronary artery without angina pectoris 3. Type [...] should problems arise Shamar García MD, MPH, [facility], [facility], [facility] Interventional Cardiology Pager Email: [email or web address] Summary Purpose Family History No [...] and content) DATE CREATED AUTHOR 03/29/2021 [facility] DATE CREATED AUTHOR AUTHOR'S ORGANIZ ATION 07/08/2021 [facility] DATE CREATED AUTHOR AUTHOR'S ORGANIZ ATION 06/22/2023 [facility] DATE CREATED AUTHOR AUTHOR'S ORGANIZ ATION 07/08/[address] [facility] EPIC FOR RECORDS PERTAINING TO PATIENTS WHO ARE [...] BE BASED ON THE PRIMARY CLINICAL RECORDS. [facility] [employer] [facility]. provides no warranty or guarantee of the accuracy or completeness of information in this document.
[2023-07-19 11:14] LABS: Basophils Absolute Auto 0.1 10^3/uL (0.0-0.1); Basophils Percent Auto 0.7 % (0.2-2.0); Eosinophils Percent Auto 0.4 % (0.9-7.0); Hematocrit 36.7 % (42.0-54.0); Immature Granulocytes Abs Auto 0.02 10^3/uL (0.00-0.03); Immature Granulocytes Pct Auto 0.2 % (0.0-0.5); Lymphocytes Percent Auto 11.8 % (20.5-60.0); Mean Corpuscular HGB Conc 32.7 g/dL (29.9-35.2); Mean Corpuscular Hemoglobin 30.8 pg (25.9-34.0); Mean Corpuscular Volume 94.1 fL (80.0-94.0); Mean Platelet Volume 9.8 fL (9.5-13.5); Monocytes Absolute Auto 0.6 10^3/uL (0.3-0.8); Monocytes Percent Auto 7.8 % (1.7-12.0); Neutrophils Absolute Auto 6.3 10^3/uL (1.4-6.5); Neutrophils Percent Auto 79.1 % (43.0-75.0); Platelet Count 203 10^3/uL (150-450); Red Cell Distribution Width 15.4 % (11.0-15.0)
[2023-07-19 12:03] LABS: Anion Gap 16.4; Calcium 8.9 mg/dL (8.5-10.1); Carbon Dioxide 26.9 mmol/L (21.0-32.0); Chloride 100 mmol/L (98-107); Estimated GFR (African America >60 (>=60); Estimated GFR (Non-African Ame >60 (>=60); Glucose 166 mg/dL (74-106); Potassium 3.3 mmol/L (3.5-5.1); Sodium 140 mmol/L (136-145)
== END 2023-07-19 12:39 | disposition home or self-care (01) ==
PROVIDERS: Emergency Provider Emergency Medicine; PCP Internal Medicine
DX: M54.2 Cervicalgia (principal); E11.9 Type 2 diabetes mellitus without complications; I10 Essential (primary) hypertension; F17.210 Nicotine dependence, cigarettes, uncomplicated; Z86.711 Personal history of pulmonary embolism; I25.2 Old myocardial infarction; Z95.5 Presence of coronary angioplasty implant and graft; Z98.890 Other specified postprocedural states; Z90.49 Acquired absence of other specified parts of digestive tract; Z90.89 Acquired absence of other organs; Z79.84 Long term (current) use of oral hypoglycemic drugs; Z79.899 Other long term (current) drug therapy
CPT/HCPCS: 36415; 72040; 80048; 85025; 96372; 99284

== ENCOUNTER 2023-07-31 12:07 | Observation (INO) | payer MEDICARE, BC, SELFPAY ==
[2023-07-31] VITALS (31 sets, daily range): BP systolic 118–178; BP diastolic 63–102; PULSE 61–114; TEMP 36.3–36.9; O2SAT 91–100; BMI 20.3; BMI 19.3
[2023-07-31 12:11] LABS: Glucometer 307 mg/dL (74-106)
--- NOTE | 2023-07-31 12:15 | XR_ITS ---
The [address] [address] Patient Name: KATHE VICTOR MRN: [id number] date: 1945 Sex: M Assigned Patient Location: ER Current Patient Location: ED.MAIN Accession/Order Number: [id number] Exam Date: 07/31/2023 12:40 Report Date: 07/31/2023 13:16 At the request of: EUNICE LANGFORD Procedure: XR shoulder RT min 2V EXAM: XR shoulder RT min 2V, XR chest 1V HISTORY: pain patient fell COMPARISON: Chest study dated 06/24/2016 TECHNIQUE: 3 views of the right shoulder were obtained. FINDINGS: No convincing evidence of acute fracture or dislocation. Moderate to marked degenerative changes about the glenohumeral interval with marked narrowing inferiorly. Moderate degenerative changes about the acromioclavicular joint. Likely few calcified loose bodies in the glenohumeral joint space measuring up to 2.5 cm. Moderate degenerative changes in the visualized cervical spine. Soft tissues are grossly within normal limits. AP view of the chest was obtained with portable technique at 12:40 PM. FINDINGS: Heart and mediastinal contours are unremarkable in appearance. No acute infiltrate or consolidations are seen. No obvious pneumothorax. Small curvilinear density at the right mid lung field level similar to the prior study, likely representing pleural thickening. Mild degenerative changes in the dorsal spine with slight convexity to the right. XR/XR shoulder RT min 2V IMPRESSION: Right shoulder study fails to demonstrate definite acute fracture or dislocation. Advanced degenerative change about the right shoulder including findings compatible with calcified loose bodies in the glenohumeral joint space as noted. Chest study fails to demonstrate evidence of acute process. Follow-up as needed. Electronically authenticated by: JORGE PACK Date: 07/31/2023 13:16
--- NOTE | 2023-07-31 12:16 | ECG_ITS ---
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
--- NOTE | 2023-07-31 12:20 | ED.WEAKNESS1 ---
HPI - Weakness General Chief complaint: Weakness Stated complaint: FALL Time Seen by Provider: 07/31/23 12:13 Source: patient Mode of arrival: ambulance History of Present Illness HPI Narrative: 77-year-old male presents because he was weak and could not get up. He lives at home and uses a walker. He was going down 6 steps on his buttocks, scooting down each step. He did not fall at any point. When he got to the bottom he could not lift himself up he states primarily because of the pain in his right shoulder which is an ongoing issue. There has been no recent injury to it. No fever or cough or localized weakness. This happened just before coming into the emergency department today. Related Data Home Medications ?Medication ?Instructions ?Recorded ?Confirmed atenolol 50 mg tablet 50 mg PO DAILY 07/31/23 07/31/23 diclofenac sodium 75 mg 75 mg PO BID 07/31/23 07/31/23 tablet,delayed release glimepiride 4 mg tablet 4 mg PO BID 07/31/23 07/31/23 lisinopril 10 mg tablet 10 mg PO DAILY 07/31/23 07/31/23 metformin 1,000 mg tablet 1,000 mg PO BID 07/31/23 07/31/23 Previous Rx's ?Medication ?Instructions ?Recorded omeprazole 40 mg capsule,delayed 40 mg PO DAILY #30 caps 06/24/23 release Allergies Allergy/AdvReac Type Severity Reaction Status Date / Time No Known Allergies Allergy Unknown Verified 07/19/23 10:05 Review of Systems ROS Narrative A ten point review of systems is negative except as noted above. PFSH PFS Medical History Pulmonary embolism ?I26.99 - Other pulmonary embolism without acute cor pulmonale (ICD-10) Diabetes ?E11.9 - Type 2 diabetes mellitus without complications (ICD-10) Myocardial infarction ?I21.9 - Acute myocardial infarction, unspecified (ICD-10) Hypertension ?I10 - Essential (primary) hypertension (ICD-10) Surgical History History of heart artery stent ?Z95.5 - Presence of coronary angioplasty implant and graft (ICD-10) Previous back surgery ?Z98.890 - Other specified postprocedural states (ICD-10) History of tonsillectomy ?Z90.89 - Acquired absence of other organs (ICD-10) History of cholecystectomy ?Z90.49 - Acquired absence of other specified parts of digestive tract (ICD-10) Social History Within the past year, how often did you have a drink containing alcohol: never Within the past year, how many standard drinks containing alcohol did you have on a typical day: 1 or 2 Within the past year, how often did you have six or more drinks on one occasion: never Total score: 0 Score interpretation: A score less than 4 is consistent with normal alcohol consumption. Smoking status: Light tobacco smoker Second hand tobacco smoke exposure: No Non-prescribed substance use: denies use Known occupational exposures/hazards: No Highest level of school completed/degree received: Associate degree: academic program Do you want help with school or training: No Are you now , , , , never or living with a partner: never In a typical week, how many times do you talk on the telephone with family, friends, or neighbors: twice per week How often do you get together with friends or relatives: 3 or more times per week How often do you attend adventist or roman catholic services: never Do you belong to any clubs or organizations such as adventist groups unions, fraternal or athletic groups, or school groups: no Total score: 1 Score interpretation: A score of less than or equal to 1 indicates the most socially isolated. Little interest or pleasure in doing things: not at all Feeling down, depressed, or hopeless: not at all Feel stressed/tense/nervous/anxious/difficulty sleeping: not at all Due to disability, difficulty making decisions: No Do you think of yourself as: straight/heterosexual Gender Identity: male Exam Narrative Exam Narrative: Nurses note and vital signs reviewed and patient is not hypoxic. General: The patient appears well and in no apparent distress. Patient is resting comfortably on cart. Skin: Warm, dry, no pallor noted. There is no rash noted. Head: Normocephalic, atraumatic Eye: Normal conjunctiva, no drainage Ears, Nose, Mouth, and Throat: oral mucosa is moderately dry Cardiovascular: Regular Rate and Rhythm Respiratory: Patient is in no distress, no accessory muscle use, lungs are clear to auscultation, no wheezing, rales or rhonchi Back: non-tender GI: Soft and nontender Musculoskeletal: The patient has no evidence of calf tenderness, no pitting edema, symmetrical pulses noted bilaterally. Right shoulder has no deformity but appears chronically swollen. No erythema or bruising. Radial pulse 2+ bilaterally. Neurological: A&O x4, normal speech Psychiatric: Cooperative Constitutional Vital Signs, click to edit/add: Last Vital Signs Temp 97.3 F L 07/31/23 12:02 Pulse 95 H 07/31/23 14:30 Resp 27 H 07/31/23 14:30 BP 161/102 H 07/31/23 14:00 Pulse Ox 100 07/31/23 12:10 Course Vital Signs Vital signs: Vital Signs Temperature 97.3 F L 07/31/23 12:02 Pulse Rate 106 H 07/31/23 12:02 Respiratory Rate 22 H 07/31/23 12:02 Blood Pressure 136/94 H 07/31/23 12:02 Temperature 97.3 F L 07/31/23 12:02 Pulse Rate 95 H 07/31/23 14:30 Respiratory Rate 27 H 07/31/23 14:30 Blood Pressure 161/102 H 07/31/23 14:00 Pulse Oximetry 100 07/31/23 12:10 MDM - Weakness MDM Narrative Medical decision making narrative: His workup indicates a WBC of 16,000. Source uncertain. Blood cultures were obtained. COVID and influenza test are pending as well. He has no evidence of UTI or pneumonia. He was unable to ambulate and there is no evidence of rhabdomyolysis. He is being admitted. Findings are discussed with the patient and his girlfriend. Differential Diagnosis Differential diagnosis: Likely anemia, hypoglycemia, rhabdomyolysis and dehydration Lab Data Attestation: I reviewed the patient's lab results. Labs: Lab Results 07/31/23 07/31/23 07/31/23 Range/Units 12:10 12:27 14:48 WBC 16.7 H (4.0-11.0) 10^3/uL RBC 4.24 L (4.70-6.10) 10^6/uL Hgb 12.7 L (14.0-18.0) g/dL Hct 38.8 L (42.0-54.0) % MCV 91.5 (80.0-94.0) fL MCH 30.0 (25.9-34.0) pg MCHC 32.7 (29.9-35.2) g/dL RDW 14.3 (11.0-15.0) % Plt Count 268 (150-450) 10^3/uL MPV 9.9 (9.5-13.5) fL Seg Neuts % (Manual) 93.0 Lymphocytes % (Manual) 3.0 L (20.5-60.0) % Monocytes % (Manual) 4.0 (1.7-12.0) % Eosinophils % (Manual) 0.0 L (0.9-7.0) % Basophils % (Manual) 0.0 L (0.2-2.0) % Neutrophils # (Manual) 15.53 H (1.4-6.5) 10^3/uL Lymphocytes # (Manual) 0.50 L (1.20-3.80) 10^3/uL Monocytes # (Manual) 0.66 (0.30-0.80) 10^3/uL Eosinophils # (Manual) 0.00 (0.00-0.70) 10^3/uL Basophils # (Manual) 0.00 (0.00-0.10) 10^3/uL Sodium 139 (136-145) mmol/L Potassium 3.7 (3.5-5.1) mmol/L Chloride 103 (98-107) mmol/L Carbon Dioxide 20.0 L (21.0-32.0) mmol/L Anion Gap 19.7 BUN 18.0 (7.0-18.0) mg/dL Creatinine 0.90 (0.70-1.30) mg/dL Est GFR ( Amer) >60 (>=60) Est GFR (Non-Af Amer) >60 (>=60) BUN/Creatinine Ratio 20.0 Glucose 264 H (74-106) mg/dL Calcium 9.0 (8.5-10.1) mg/dL Total Creatine Kinase 165 (39-308) U/L Myoglobin 209 H (16-96) ng/mL Urine Color Yellow (YELLOW) Urine Clarity Clear (CLEAR) Urine pH 5.5 (5.0-9.0) Ur Specific [place] >=1.030 A (1.005-1.025) Urine Protein 30 A (NEG/TRACE) mg/dL Urine Glucose (UA) 500 A (NEGATIVE) mg/dL Urine Ketones >=80 A (NEGATIVE) mg/dL Urine Occult Blood Small A (NEGATIVE) Urine Nitrite Negative (NEGATIVE) Urine Bilirubin Small A (NEGATIVE) Urine Urobilinogen 0.2 (0.2-1.0) EU/dL Ur Leukocyte Esterase Negative (NEGATIVE) Urine RBC 2-5 A (0-2) #/HPF Urine WBC 0-2 A (NONE SEEN) #/HPF Ur Squamous Epith Cells Few A (NONE/RARE) #/LPF Urine Crystals None seen (None Seen) #/HPF Urine Bacteria Trace A (NONE SEEN) #/HPF Urine Casts None seen (NONE SEEN) #/LPF Urine Mucus None seen (NONE SEEN) POC Glucose 307 H (74-106) mg/dL Imaging Data Chest x-ray: Radiologist's impression: ITS Impressions Shoulder X-Ray 07/31/23 12:15 IMPRESSION: Right shoulder study fails to demonstrate definite acute fracture or dislocation. Advanced degenerative change about the right shoulder including findings compatible with calcified loose bodies in the glenohumeral joint space as noted. Chest study fails to demonstrate evidence of acute process. Follow-up as needed. Electronically authenticated by: JORGE PACK Date: 07/31/2023 13:16 Chest X-Ray 07/31/23 12:40 IMPRESSION: Right shoulder study fails to demonstrate definite acute fracture or dislocation. Advanced degenerative change about the right shoulder including findings compatible with calcified loose bodies in the glenohumeral joint space as noted. Chest study fails to demonstrate evidence of acute process. Follow-up as needed. Electronically authenticated by: JORGE PACK Date: 07/31/2023 13:16 ECG Data Attestation: I personally reviewed and interpreted this ECG as follows: (EKG on my interpretation shows sinus rhythm with PVCs) Discharge Plan Discharge Chief Complaint: Weakness Clinical Impression: Generalized weakness, Unable to ambulate Patient Disposition: Admitted as Observation Time of Disposition Decision: 15:34 Condition: Fair
[2023-07-31 12:34] LABS: Hematocrit 38.8 % (42.0-54.0); Hemoglobin 12.7 g/dL (14.0-18.0); Mean Corpuscular HGB Conc 32.7 g/dL (29.9-35.2); Mean Corpuscular Volume 91.5 fL (80.0-94.0); Mean Platelet Volume 9.9 fL (9.5-13.5); Platelet Count 268 10^3/uL (150-450); Red Blood Count 4.24 10^6/uL (4.70-6.10); Red Cell Distribution Width 14.3 % (11.0-15.0); White Blood Count 16.7 10^3/uL (4.0-11.0)
--- NOTE | 2023-07-31 12:40 | XR_ITS ---
The [address] [address] Patient Name: KATHE VICTOR MRN: [id number] date: 1945 Sex: M Assigned Patient Location: ER Current Patient Location: ED.MAIN Accession/Order Number: [id number] Exam Date: 07/31/2023 12:42 Report Date: 07/31/2023 13:16 At the request of: EUNICE LANGFORD Procedure: XR chest 1V EXAM: XR shoulder RT min 2V, XR chest 1V HISTORY: pain patient fell COMPARISON: Chest study dated 06/24/2016 TECHNIQUE: 3 views of the right shoulder were obtained. FINDINGS: No convincing evidence of acute fracture or dislocation. Moderate to marked degenerative changes about the glenohumeral interval with marked narrowing inferiorly. Moderate degenerative changes about the acromioclavicular joint. Likely few calcified loose bodies in the glenohumeral joint space measuring up to 2.5 cm. Moderate degenerative changes in the visualized cervical spine. Soft tissues are grossly within normal limits. AP view of the chest was obtained with portable technique at 12:40 PM. FINDINGS: Heart and mediastinal contours are unremarkable in appearance. No acute infiltrate or consolidations are seen. No obvious pneumothorax. Small curvilinear density at the right mid lung field level similar to the prior study, likely representing pleural thickening. Mild degenerative changes in the dorsal spine with slight convexity to the right. XR/XR chest 1V IMPRESSION: Right shoulder study fails to demonstrate definite acute fracture or dislocation. Advanced degenerative change about the right shoulder including findings compatible with calcified loose bodies in the glenohumeral joint space as noted. Chest study fails to demonstrate evidence of acute process. Follow-up as needed. Electronically authenticated by: JORGE PACK Date: 07/31/2023 13:16
[2023-07-31 12:48] LABS: Anion Gap 19.7; Chloride 103 mmol/L (98-107); Estimated GFR (African America >60 (>=60); Estimated GFR (Non-African Ame >60 (>=60); Glucose 264 mg/dL (74-106); Potassium 3.7 mmol/L (3.5-5.1); Sodium 139 mmol/L (136-145)
[2023-07-31 12:57] LABS: Monocytes Absolute Manual 0.66 10^3/uL (0.30-0.80); Segmented Neut Absolute Manual 15.53 10^3/uL (1.4-6.5)
[2023-07-31] MEDS: 0.9 % SODIUM CHLORIDE 1,000 ML 75 ML IV (13:10)
[2023-07-31 13:18] LABS: Creatine Kinase 165 U/L (39-308); Myoglobin 209 ng/mL (16-96)
[2023-07-31 15:02] LABS: Bilirubin Urine SMALL (NEGATIVE); Blood Urine SMALL (NEGATIVE); Clarity Urine CLEAR (CLEAR); Color Urine YELLOW (YELLOW); Glucose Urine UA 500 mg/dL (NEGATIVE); Ketones Urine >=80 mg/dL (NEGATIVE); Leukocyte Esterase Urine NEGATIVE (NEGATIVE); Nitrite Urine NEGATIVE (NEGATIVE); Protein Urine 30 mg/dL (NEG/TRACE); Specific Gravity Urine >=1.030 (1.005-1.025); Urobilinogen Urine 0.2 EU/dL (0.2-1.0); pH Urine 5.5 (5.0-9.0)
[2023-07-31 15:14] LABS: Bacteria Urine TRACE #/HPF (NONE SEEN); Mucus Urine NONE SEEN (NONE SEEN); Squamous Epithelial Cell Urine FEW #/LPF (NONE/RARE); WBC Urine 0-2 #/HPF (NONE SEEN)
[2023-07-31 15:15] LABS: Cast Seen? NONE SEEN #/LPF (NONE SEEN); Crystals Seen? None Seen #/HPF (None Seen)
--- NOTE | 2023-07-31 15:53 | P.HP_ITS ---
<Statement entered by Shaikh Mikel MD - 08/01/23 10:25> This documentation has been reviewed and approved. Patient was not seen on admission. However, his chart was reviewed and case was discussed with Liz and ED provider. Agree with her clinical finding and documentation. Agree with treatment plan HPI H&P: HPI History of Present Illness Chief complaint: Weakness Generalized Weakness unabulate Narrative: 07/31/23 [id number] This is a 77-year-old male patient with a past medical history as outlined below including DM2, GERD, hypertension, and osteoarthritis with chronic right shoulder pain; who presented to the ED after being found at home on the ground today and unable to stand. The patient reports that he usually goes down his steps by sliding on his buttocks. Today when he attempted this he was unable to stand up due to right shoulder and right wrist pain. He attempted to work himself across the kitchen on his back but was unable to reach his phone. He was found by his girlfriend after several hours and brought into the ED for further evaluation. The patient denies falling, denies dizziness, chest pain, shortness of breath, or any other acute complaint. Workup in the ED revealed leukocytosis (16.7), hyperglycemia (264), and mildly elevated myoglobin (209). A UA was negative for UTI but did note ketones, proteinuria, and glucosuria. A COVID and influenza swab was negative. A Chest x-ray was unremarkable and a right shoulder x-ray revealed chronic degenerative changes without definitive acute fracture. He is being admitted in observation to the hospitalist service due to leukocytosis (of unknown origin, possibly reactive) and weakness with inability to ambulate independently. At the time of my exam the patient is resting on the ED cart. He is a poor historian but his description of events appears to include new right wrist pain on top of old chronic right shoulder pain which contributed to his inability to stand up after descending the stairs. Examination of the right wrist reveals mild swelling and erythema and tenderness. In addition, cardiac monitoring in the ED reveals frequent ectopy with occasional bigeminy and tachycardia up to 130, but returning to controlled rate quickly. In addition to the above workup we will add a mag, troponin, and TSH levels to assess for etiology of cardiac irregularity and tachycardia. The patient has no history of A-fib. We will also obtain an x-ray of the right wrist and add on inflammatory markers studies to the ED labs. Leukocytosis may be reactive from the patient's prolonged downtime, but may also reflect a septic arthritis of the right wrist. Opioid HPI Opioid Management Most Recent Opioid Data: Last Pain Scale 0 07/31/23 21:01 Last Pain Assessment 08/01/23 07:00 Last ED Pain Assessment 07/31/23 12:24 Last ORT Total Score 0 07/31/23 17:09 Last ORT Risk Category Low Risk 07/31/23 17:09 Review of Systems ROS Status of ROS 10 or more systems reviewed and unremark able except as noted in history and below [facility] Medical History (Updated 07/31/23 @ 17:35 by Liz Zavaleta NP) GERD (gastroesophageal reflux disease) ?K21.9 - Gastro-esophageal reflux disease without esophagitis (ICD-10) Myocardial infarction ?I21.9 - Acute myocardial infarction, unspecified (ICD-10) Chronic right shoulder pain ?M25.511 - Pain in right shoulder (ICD-10) ?G89.29 - Other chronic pain (ICD-10) Medication care plan discussed with patient ?Z71.89 - Other specified counseling (ICD-10) Acute neck pain ?M54.2 - Cervicalgia (ICD-10) Weight loss, unintentional ?R63.4 - Abnormal weight loss (ICD-10) Hypotension ?I95.9 - Hypotension, unspecified (ICD-10) Diarrhea ?R19.7 - Diarrhea, unspecified (ICD-10) Abdominal pain ?R10.9 - Unspecified abdominal pain (ICD-10) Pulmonary embolism ?I26.99 - Other pulmonary embolism without acute cor pulmonale (ICD-10) Diabetes ?E11.9 - Type 2 diabetes mellitus without complications (ICD-10) Hypertension ?I10 - Essential (primary) hypertension (ICD-10) Surgical History History of heart artery stent ?Z95.5 - Presence of coronary angioplasty implant and graft (ICD-10) Previous back surgery ?Z98.890 - Other specified postprocedural states (ICD-10) History of tonsillectomy ?Z90.89 - Acquired absence of other organs (ICD-10) History of cholecystectomy ?Z90.49 - Acquired absence of other specified parts of digestive tract (ICD- 10) Social History (Updated 07/31/23 @ 17:02 by Mendy Leon) Within the past year, how often did you have a drink containing alcohol: never Within the past year, how many standard drinks containing alcohol did you have on a typical day: 1 or 2 Within the past year, how often did you have six or more drinks on one occasion: never Total score: 0 Score interpretation: A score less than 4 is consistent with normal alcohol consumption. Smoking status: Current some day smoker Second hand tobacco smoke exposure: Yes Non-prescribed substance use: denies use Known occupational exposures/hazards: No Highest level of school completed/degree received: Associate degree: academic program Do you want help with school or training: No Are you now , , , , never or living with a partner: never In a typical week, how many times do you talk on the telephone with family, friends, or neighbors: twice per week How often do you get together with friends or relatives: 3 or more times per week How often do you attend religion or hinduism services: never Do you belong to any clubs or organizations such as religion groups unions, [employer] or athletic groups, or school groups: no Total score: 1 Score interpretation: A score of less than or equal to 1 indicates the most socially isolated. Little interest or pleasure in doing things: not at all Feeling down, depressed, or hopeless: not at all Feel stressed/tense/nervous/anxious/difficulty sleeping: not at all Due to disability, difficulty making decisions: No Do you think of yourself as: straight/heterosexual Gender Identity: male Meds Home Medications and Allergies Home Medications ?Medication ?Instructions ?Recorded ?Confirmed ?Type omeprazole 40 mg capsule,delayed 40 mg PO DAILY #30 caps 06/24/23 07/31/23 Rx release atenolol 50 mg tablet 50 mg PO DAILY 07/31/23 07/31/23 History diclofenac sodium 75 mg 75 mg PO BID 07/31/23 07/31/23 History tablet,delayed release glimepiride 4 mg tablet 4 mg PO BID 07/31/23 07/31/23 History lisinopril 10 mg tablet 10 mg PO DAILY 07/31/23 07/31/23 History metformin 1,000 mg tablet 1,000 mg PO BID 07/31/23 07/31/23 History Allergies Allergy/AdvReac Type Severity Reaction Status Date / Time No Known Allergies Allergy Unknown Verified 07/19/23 10:05 Exam Constitutional Vital Signs, click to edit/add: Last Vital Signs Temp 97.3 F L 07/31/23 12:02 Pulse 95 H 07/31/23 14:30 Resp 27 H 07/31/23 14:30 BP 161/102 H 07/31/23 14:00 Pulse Ox 100 07/31/23 12:10 Common normals: no apparent distress, oriented x3, alert and well nourished General appearance: cooperative Orientation/consciousness: Yes awake HENMT Common normals: normocephalic, head/scalp atraumatic, hearing grossly normal bilaterally, external nose normal and moist oral mucous membranes Eye Common normals: PERRL, EOMs intact bilaterally, conjunctivae normal and no scleral icterus Alignment: alignment normal Eyelid: eyelids normal Neck & C-Spine Common normals: full ROM, supple and no JVD Chest Common normals: inspection of chest normal Chest: symmetrical chest wall rise Respiratory Common normals: normal respiratory effort, no retractions, no use of accessory muscles and clear to auscultation bilaterally Effort & inspection: able to speak in complete sentences Cardio Common normals: no JVD, S1 normal heart sound, S2 normal heart sound, no gallops, no clicks, no rub and peripheral pulses 2+ throughout Rate: tachycardic (Paroxysmal) Rhythm: abnormal rhythm irregularly irregular GI Common normals: Normal to inspection, nondistended, normoactive bowel sounds present, soft to palpation, non-tender, no hepatosplenomegaly, no masses and no bruits Bladder/kidney exam: bladder normal to palpation Extremity Common normals: normal capillary refill General: normal exam except as noted and edema (1-2+ bilat insteps/ankles); no clubbing and no cyanosis Right upper extremity: shoulder joint (Impaired ROM, frozen) and wrist (Tender, swollen, red) Neuro [place] Coma Scale: GCS not evaluated Common normals: CN's II-XII intact bilaterally, moves all extremities, no focal motor deficits and no sensory deficits noted Speech: speech normal Psych Common normals: mental status grossly normal, thought process normal, affect normal and activity/motor behavior normal Results Labs Labs: Short CBC 07/31/23 Range/Units 12:27 WBC 16.7 H (4.0-11.0) 10^3/uL Hgb 12.7 L (14.0-18.0) g/dL Hct 38.8 L (42.0-54.0) % Plt Count 268 (150-450) 10^3/uL BMP 07/31/23 12:27 Sodium 139 Potassium 3.7 Chloride 103 Carbon Dioxide 20.0 L BUN 18.0 Creatinine 0.90 Glucose 264 H Calcium 9.0 Cardiac Enzymes 07/31/23 Range/Units 12:27 Total Creatine Kinase 165 (39-308) U/L Urine 07/31/23 Range/Units 14:48 Urine Color Yellow (YELLOW) Urine Clarity Clear (CLEAR) Urine pH 5.5 (5.0-9.0) Ur Specific [place] >=1.030 A (1.005-1.025) Urine Protein 30 A (NEG/TRACE) mg/dL Urine Glucose (UA) 500 A (NEGATIVE) mg/dL Pulse Oximetry Attestation: I have reviewed the pertinent pulse oximetry results. ECG Attestation: ?I have reviewed the pertinent ECG results. Interpretation: Sinus rhythm With occasional supraventricular premature complexes With couplet ventricular premature complexes Right bundle branch block Left anterior fascicular block Possible left atrial enlargement Abnormal ECG Compared to ECG from 06/23/2023 at 1047 Left anterior fascicular block now present Left axis deviation no longer present Imaging CXR and R Should X-ray: Attestation: I have reviewed the pertinent imaging results. Radiologist's impression: IMPRESSION: Right shoulder study fails to demonstrate definite acute fracture or dislocation. Advanced degenerative change about the right shoulder including findings compatible with calcified loose bodies in the glenohumeral joint space as noted. Chest study fails to demonstrate evidence of acute process. Follow-up as needed. Assessment and Plan Assessment and Plan (1) Leukocytosis: Assessment and Plan: Acute * Adm observation * Low threshold to convert to full inpatient if workup indicates septic arthritis * Unclear etiology, no definitive infectious source identified * UA neg * CXR neg * Pt afebrile w/ stable VS * R wrist mild erythema, swelling, tenderness - Add ESR, CRP, PCT, Wrist Xray * Consider initiating ABX pending above additional work up * CBC daily (2) Inflammation around wrist: Assessment and Plan: Acute * Mild erythema, swelling, tenderness * No reported injury to wrist, but pt is a poor historian * Wrist XR to r/o fracture or other bony abnormality * Consider orthopedic consult pending clinical course * Add inflammatory work up to ED labs * Septic arthritis possible source of leukocytosis * Pt is afebrile w/ stable VS * Consider adding ABX after additional work up (3) Ventricular ectopy: Assessment and Plan: Acute * Frequent ectopy w/ paroxysmal tachycardia in ED * Add mag level, Trop, TSH to ED labs * Tele monitoring * Repeat EKG in AM (4) Hypomagnesemia: Assessment and Plan: Acute * Mag level resulted mildly low at 1.6 * Replete w/ 2gm Mag sulfate * Repeat Mag level in AM * Tele monitoring (5) Generalized weakness: Assessment and Plan: Acute * Unable to ambulate in ED * PT/OT consults * Hypomag likely contributing to generalized weakness - see above * Consider HH or SNF placement for rehab if indicated per PT/OT (6) Chronic right shoulder pain: Assessment and Plan: Chronic * Shoulder XR w/ degenerative changes - no acute abn * Continue home Voltaren * Supportive care (7) Diabetes: Assessment and Plan: Chronic * Hold home metformin and glimepiride during acute hospitalization * ACHS glucometer checks * Med dose SSI for glucose correction * CC diet Qualifiers: Diabetes mellitus complication status: without complication 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
[2023-07-31] MEDS: IBUPROFEN 600 MG TABLET PO (16:16)
--- NOTE | 2023-07-31 16:25 | XR_ITS ---
The [address] [address] Patient Name: KATHE VICTOR MRN: [id number] date: 1945 Sex: M Assigned Patient Location: ED.MAIN Current Patient Location: [place] Accession/Order Number: [id number] Exam Date: 07/31/2023 16:40 Report Date: 07/31/2023 17:49 At the request of: EUNICE LANGFORD Procedure: XR wrist RT min 3V EXAM: XR wrist RT min 3V TECHNIQUE: AP, lateral and oblique views right wrist HISTORY: Atraumatic pain COMPARISON: None. FINDINGS: No acute fracture or dislocation. Soft tissue swelling of the right wrist. Moderate degenerative changes of the radial aspect of the wrist joint. XR/XR wrist RT min 3V IMPRESSION: No acute fracture or dislocation. Arthritic changes. Electronically authenticated by: TANISHA CHAMBERLAIN Date: 07/31/2023 17:49
[2023-07-31 16:28] LABS: Influenza Virus A Antigen Negative; Influenza Virus B Antigen Negative; Internal Control Within Normal Limits; SARS-CoV-2 Ag NEGATIVE (NEGATIVE)
[2023-07-31 16:50] LABS: Erythrocyte Sedimentation Rate 70 mm/hr (<=20)
[2023-07-31 17:01] LABS: C Reactive Protein 11.94 mg/dL (<=0.50); Magnesium 1.6 mg/dL (1.8-2.4); TSH W/ REFLEX FT4 0.401 uIU/mL (0.358-3.740); Troponin I High Sensitivity 48.2 pg/mL (4.0-76.1)
--- OUTSIDE RECORDS SUMMARY | 2023-07-31 17:07 | XMS_ITS | CCD ---
Author Organization [facility] Care Team Providers Care Clinical Research Analyst Name Role Phone HOUSE, DR BOWSER Primary [...] MAXI Jackson Attending Unavailable HEMMERASHLEY Attending Unavailable MEGHANA, ROBYN Galarza Attending Unavailable ALEGRE, RADHA Mancera Attending Unavailable RADHA ALEGRE Referring Unavailable RAYMUNDO GARCIA Attending Unavailable HOUSE, NIELS Wadsworth Referring Unavailable HOUSE, NIELS Wadsworth Primary Care Unavailable Problems Active Problems Problem Classification Problem Date Documented Da te Episodic/Chronic Administrative/social admission (1 source) Person with feared health complaint in whom no diagnosis is made; Translations: [PERS FEAR HLTH COMPLAINT NO DX MADE] Onset: 07-08-2021 Episodic Coagulation and hemorrhagic disorders (4 sources) Thrombocytopenia, unspecified; Translations: [THROMBOCYTOPENIA UNSPECIFIED] Onset: 11-13-2020 Chronic Coronary atherosclerosis and other heart disease (2 sources) Atherosclerotic heart disease of hoh coronary artery without angina pectoris; Translations: [Atherosclerotic heart disease of hoh coronary artery without angina pectoris] Onset: 07-27-2022 Chronic Other aftercare (1 source) Other rat exterminator (current) drug therapy; Translations: [OTH INSERTER OPERATOR CURRENT DRUG THERAPY] Onset: 07-08-2021 Episodic Other aftercare (1 source) 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; Translations: [INSERTER OPERATOR CURRENT USE OF ASPIRIN] Onset: 07-08-2021 Episodic Other aftercare (1 source) 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; Translations: [INSERTER OPERATOR USE ORAL HYPOGLYCEMIC DX] Onset: 07-08-2021 Episodic Other gastrointestinal disorders (1 source) Change in bowel habit; Translations: [Change in bowel habit] Onset: 07-27-2023 Episodic Other gastrointestinal disorders (1 source) Diarrhea Onset: 07-27-2023 Episodic Other injuries and conditions due to [...] Reference Range Facil ity Follow-Upon 06-21-2023 Follow-Up [id number] Subramanian 1945 M Date Provider Department Center 06/21/2023 271-SHAMAR GARCÍA CARD [facility] No family history on file Level of Service:87838 [place] OFFICE/OUTPATIENT ESTABLISHED MOD MDM 30 MIN Normal [facility] Office Visiton 07-27-2022 Follow-up visit [id number] David Chung 1945 M Date Provider Department Center 07/27/2022 SHAMAR MIKE CARD Maylin Garcia No family history on file Level of Service:80563 [place] OFFICE/OUTPATIENT ESTABLISHED LOW MDM 20-29 MIN Reason for Visit and Comments: Coronary Artery Disease [187] Hypertension [359805] Normal [facility] Covid-19 PCR (CVDTBH)on 03-17 SARS-CoV-2 (COVID-19) RNA LEO+probe Ql (Unsp spec) Not detected Normal NOT DETECTED [facility] Comment on above: Result Comment: When diagnostic testing is negative, the possibility of a false negative should be considered in the context of a patient's recent exposures and the presence of clinical signs and symptoms consistent with SARS-CoV-2. This test is not yet approved or cleared by the [place] Food and Drug Administration (FDA). This test was developed by [employer], [place], [place]. The performance characteristics of this test were validated by [facility]. The results are not intended to be used as the sole means for clinical diagnosis or patient management decisions. The [facility] is authorized under Clinical Laboratory Improvement [...] for this test is supported by the [place] of Health and Human Service's declaration that [...] used). Performed By: #### C VDTB #### [facility] [address] [address] [address] Kelly Montoya CBC AUTO DIFFon 11-13-2020 BASO # 0.1 103/ul Normal 0.0-0.1 [facility] Comment on above: Performed By: #### C BC #### [facility] [address] [place], [place] [address] Cortez Ashley Basophils/100 WBC (Bld) 1.3 % Normal 0.2-2.0 [facility] Comment on above: Performed By: #### C BC #### [facility] [address] [id number] Cortez Ashley EO # 0.4 103/ul Normal 0.0-0.7 [facility] Comment on above: Performed By: #### C BC #### [facility] [address] [id number] Cortez Ashley Eosinophils/100 WBC (Bld) 5.0 % Normal 0.9-7.0 [facility] Comment on above: Performed By: #### C BC #### [facility] [address] [place], [place] [id number] Cortez Ashley Erythrocyte distribution width (RBC) [Ratio] 13.6 % Normal 11.0-15.0 [facility] Comment on above: Performed By: #### C BC #### [facility] [address] [place], [place] [id number] Cortez Ashley Hematocrit (Bld) [Volume fraction] 47.6 % Normal 42.0-54.0 [facility] Comment on above: Performed By: #### C BC #### [facility] [address] [place], [place] [id number] Cortez Ashley Hemoglobin (Bld) [Mass/Vol] 15.4 g/dL Normal 14.0-18.0 [facility] Comment on above: Performed By: #### C BC #### [facility] [address] [id number] Cortez Ashley IG # 0.04 10e3/ul Critically high 0.00-0.03 [facility] Comment on above: Performed By: #### C BC #### [facility] [address] [id number] Cortez Ashley IG % 0.6 % Critically high 0.0-0.5 [facility] Comment on above: Performed By: #### C BC #### [facility] [address] [place], [place] [id number] Cortez Ashley LYMPH # 2.0 103/ul Normal 1.2-3.8 [facility] Comment on above: Performed By: #### C BC #### [facility] [address] [place], [place] [id number] Cortez Ashley Lymphocytes/100 WBC (Bld) 27.9 % Normal 20.5-60.0 [facility] Comment on above: Performed By: #### C BC #### [facility] [address] [place], [place] [address] Cortez Ashley MANUAL DIFF REQ NO Normal [facility] Comment on above: Performed By: #### C BC #### [facility] [address] [place], [place] [id number] Cortez Ashley MCH (RBC) [Entitic mass] 30.3 pg Normal 25.9-34.0 [facility] Comment on above: Performed By: #### C BC #### [facility] [address] [place] [address] Cortez Ashley MCHC (RBC) [Mass/Vol] 32.4 g/dL Normal 29.9-35.2 [facility] Comment on above: Performed By: #### C BC #### [facility] [address] [place] [address] Cortez Ashley MCV (RBC) [Entitic vol] 93.5 fL Normal 80.0-94.0 [facility] Comment on above: Performed By: #### C BC #### [facility] [address] [place] [address] Cortez Ashley MONO # 0.5 103/ul Normal 0.3-0.8 [facility] Comment on above: Performed By: #### C BC #### [facility] [address] [place], [place] [address] Cortez Ashley Monocytes/100 WBC (Bld) 7.4 % Normal 1.7-12.0 [facility] Comment on above: Performed By: #### C BC #### [facility] [address] [place], [place] [address] Cortez Ashley NEUT # 4.1 103/ul Normal 1.4-6.5 [facility] Comment on above: Performed By: #### C BC #### [facility] [address] [id number] Cortez Ramirez Neutrophils/100 WBC (Bld) 57.8 % Normal 43.0-75.0 [facility] Comment on above: Performed By: #### C BC #### [facility] [address] [address] Cortez Ramirez Platelet mean volume (Bld) [Entitic vol] 11.1 fL Normal 9.5-13.5 [facility] Comment on above: Performed By: #### C BC #### [facility] [address] [address] Cortez Ramirez PLT 167 103/ul Normal 150-450 [facility] Comment on above: Performed By: #### C BC #### [facility] [address] [address] Cortez Ramirez RBC 5.09 106/ul Normal 4.70-6.10 [facility] Comment on above: Performed By: #### C BC #### [facility] [address] [id number] Cortez Ramirez WBC 7.1 103/ul Normal 4.0-11.0 [facility] Comment on above: Performed By: #### C BC #### [facility] [address] [id number] Cortez Ramirez Encounters Encounter Date Encounter Type Care Provider Facility Start: 07-27-2023 End: 07-27-2023 ambulatory [facility] Start: 07-18-2023 End: 07-19-2023 ambulatory RADHA ALEGRE Not Available Start: 07-06-2023 End: 07-06-2023 ambulatory ROBYN KOWALSKI Not Available Start: 06-27-2023 End: 06-27-2023 ambulatory ASHLEY CHAO Not Available Start: 06-21-2023 End: 06-21-2023 ambulatory AB [facility] Start: 06-21-2023 End: 06-21-2023 Encounter for other preprocedural examination [facility] Start: 06-06-2023 End: 06-06-2023 ambulatory MAXI TELLEZ Not Available Start: 05-23-2023 End: 05-23-2023 ambulatory MAXI TELLEZ Not Available Start: 05-09-2023 End: 05-10-2023 ambulatory MAXI SOTOMAYORDLESTON Not Available Start: 05-08-2023 End: 05-08-2023 ambulatory ROBYN KOWALSKI Not Available Start: 04-25-2023 End: 04-26-2023 ambulatory MAXI Jackson ROSALINDA Not Available Start: 07-27-2022 End: 07-27-2022 ambulatory [facility] Start: 07-07-2021 End: 07-07-[address] NIELS TOWNSEND Facility:[facility] Start: 03-29-2021 End: 03-29-[address] NIELS TOWNSEND Facility:[facility] Start: 02-09-2021 End: 02-09-2021 ambulatory SUMMER PERKINS Facility:[facility] Start: 11-13-2020 End: 11-14-[address] NIELS TOWNSEND Facility:[facility] Start: 07-14-2020 End: 07-15-[address] MARQUEZ LISTED REQUEST Facility: Payers Date Payer Category Payer Medicare [id number] 1961 Medicare [id number] 1961 Self-pay 1959 Unknown [id number] 1959 Unknown [id number] 1945 Unknown [id number] 2.16.84 0.1.629007.3.579.2.59 1945 Unknown [id number] .16.84 0.1.151335.3.579.2.59 1945 Unknown [id number] 2.16.84 0.1.253032.3.579.2.593 1945 Unknown [id number] 2.16.84 0.1.157808.3.579.2.593 1945 Unknown [id number] 2.16.84 0.1.746072.3.579.2.593 1945 Unknown [id number] 2.16.84 0.1.052188.3.579.2.1258 1945 Unknown [id number] 2.16.84 0.1.302065.3.579.2.1258 1945 Unknown [id number] 2.16.84 0.1.511538.3.579.2.1258 1945 Unknown [id number] 2.16.84 0.1.155247.3.579.2.1258 1945 Unknown [id number] 2.16.84 0.1.141777.3.579.2.1258 1945 Unknown [id number] 2.16.84 0.1.928901.3.579.2.1258 1943 Unknown [id number] 2.16.84 0.1.784074.3.579.2.1258 1943 Unknown [id number] 2.16.84 0.1.097349.3.579.2.1258 1945 Unknown [id number] 2.16.84 0.1.992805.3.579.2.1258 1945 Unknown [id number] 2.16.84 0.1.392647.3.579.2.1258 1943 Unknown [id number] 2.16.84 0.1.964735.3.579.2.1258 1945 Unknown [id number] 2.16.8 40.1.872430.3.579.2.1286 Unknown [id number] 2.16.84 0.1.848897.3.579.2.593 Progress note 06-21-2023 Note Date & Type Note Facility 06-21-2023 Note [facility] Cardiology Clinic Note Chief Complaint: Patient here for cardiac clearance prior to back surgery, hoping to be scheduled next month. Denies chest pain, SOB, palpitations, and lightheadedness/syncope. Has not had any recent lab work or imaging. HPI: David Chung is a 77 y.o. male With [...] 1. Electrocardiogram abnormal 2. Coronary arteriosclerosis in hoh artery - stents 2006 rca and cirx no sympt (more content not included)... [facility] Progress note 07-27-2022 Note Date & Type Note Facility 07-27-2022 Note [facility] Cardiology Clinic Note Chief Complaint: Patient [...] electrocardiogram [ECG] [EKG] 2. Coronary arteriosclerosis in hoh artery - stents 2006 rca and cirx no symptoms asa being held He had ischemic stress in september 2015 went on to catherization Lad has mild disease Moderate disease in rca Circumflex is occluded with collateral I25.10: Atherosclerotic heart disease of hoh coronary artery without angina pectoris 3. Type [...] should problems arise Shamar García MD, MPH, FACC, [facility], [facility] Interventional Cardiology Pager Email: [email or web address] Summary Purpose Family History No Family [...] and content) DATE CREATED AUTHOR 03/29/2021 [facility] DATE CREATED AUTHOR AUTHOR'S ORGANIZ ATION 07/08/2021 [facility] DATE CREATED AUTHOR AUTHOR'S ORGANIZ ATION 06/22/2023 [facility] DATE CREATED AUTHOR AUTHOR'S ORGANIZ ATION 07/22/2023 [facility] DATE CREATED AUTHOR AUTHOR'S ORGANIZ ATION 07/28/2023 [facility] FOR RECORDS PERTAINING TO PATIENTS WHO ARE [...] BE BASED ON THE PRIMARY CLINICAL RECORDS. [employer] provides no warranty or guarantee of the accuracy or completeness of information in this document.
[2023-07-31 17:08] LABS: Glucometer 223 mg/dL (74-106)
[2023-07-31] MEDS: INSULIN ASPART 300 UNIT/3 ML PEN SUBQ ×2 (17:21→21:02)
[2023-07-31] MEDS: MAGNESIUM SULFATE IN WATER 2 GM/50 ML PREMIX IV (17:41)
[2023-07-31] MEDS: LACTATED RINGER'S SOLUTION 1,000 ML 125 ML IV (17:46)
--- NOTE | 2023-07-31 18:24 | PC.NURSE ---
noted abnormal rhythm on case monitor, called and spoke with Lexii ELENA, states that patient is up and ambulating at this time.
[2023-07-31 20:15] LABS: Glucometer 242 mg/dL (74-106)
[2023-07-31] MEDS: DICLOFENAC SODIUM 25 MG TABLET.DR 75 MG PO (21:01)
[2023-07-31] MEDS: ENOXAPARIN SODIUM 40 MG/0.4 ML SYRINGE SUBQ (21:02)
[2023-07-31] MEDS: VANCOMYCIN HCL 1,000 MG in 0.9 % SODIUM CHLORIDE 250 ML 250 MG IV (22:12)
[2023-08-01] VITALS (14 sets, daily range): BP systolic 140–165; BP diastolic 75–85; PULSE 55–129; TEMP 36.3–36.6; O2SAT 94–96
[2023-08-01] MEDS: LACTATED RINGER'S SOLUTION 1,000 ML 125 ML IV (03:50)
--- NOTE | 2023-08-01 05:00 | ECG_ITS ---
[facility] Test Date: 2023-08-01 Pat Name: KATHE VICTOR Department: Room: Gender: Male Head Grinder: : 1945 Requested By: ROBYN KOWALSKI Order Number: [id number] Reading MD: LANI ROSSI Measurements Intervals [place] Rate: 63 P: 47 [place]: 180 QRS: -75 QRSD: 169 T: 29 QT: 498 QTc: 513 Interpretive Statements SINUS RHYTHM MARKED LEFT AXIS DEVIATION [QRS AXIS < -30] RIGHT BUNDLE BRANCH BLOCK [120+ ms QRS DURATION, UPRIGHT V1, 40+ ms S IN I/aVL/V4/V5/V6] Electronically Signed On 08-01-2023 6:46:25 EDT by LANI ROSSI
[2023-08-01 05:11] LABS: Basophils Absolute Auto 0.1 10^3/uL (0.0-0.1); Basophils Percent Auto 0.6 % (0.2-2.0); Eosinophils Absolute Auto 0.1 10^3/uL (0.0-0.7); Eosinophils Percent Auto 0.9 % (0.9-7.0); Hematocrit 35.3 % (42.0-54.0); Hemoglobin 11.3 g/dL (14.0-18.0); Immature Granulocytes Abs Auto 0.03 10^3/uL (0.00-0.03); Immature Granulocytes Pct Auto 0.3 % (0.0-0.5); Lymphocytes Absolute Auto 1.7 10^3/uL (1.2-3.8); Lymphocytes Percent Auto 17.3 % (20.5-60.0); Mean Corpuscular Volume 93.6 fL (80.0-94.0); Mean Platelet Volume 10.8 fL (9.5-13.5); Monocytes Absolute Auto 0.7 10^3/uL (0.3-0.8); Monocytes Percent Auto 7.7 % (1.7-12.0); Neutrophils Percent Auto 73.2 % (43.0-75.0); Platelet Count 225 10^3/uL (150-450); Red Blood Count 3.77 10^6/uL (4.70-6.10); Red Cell Distribution Width 14.4 % (11.0-15.0); White Blood Count 9.6 10^3/uL (4.0-11.0)
[2023-08-01 05:36] LABS: Alanine Aminotransferase 14 U/L (16-63); Albumin Globulin Ratio 0.7; Albumin Level 2.3 g/dL (3.4-5.0); Alkaline Phosphatase 60 U/L (46-116); Aspartate Amino Transferase <5 U/L (15-37); BUN Creatinine Ratio 22.4; Bilirubin Total 0.4 mg/dL (0.2-1.0); Calcium 8.8 mg/dL (8.5-10.1); Carbon Dioxide 26.1 mmol/L (21.0-32.0); Chloride 106 mmol/L (98-107); Estimated GFR (African America >60 (>=60); Estimated GFR (Non-African Ame >60 (>=60); Globulin 3.2 g/dL; Glucose 110 mg/dL (74-106); Potassium 3.1 mmol/L (3.5-5.1); Sodium 140 mmol/L (136-145); Total Protein 5.5 g/dL (6.4-8.2)
[2023-08-01] MEDS: OMEPRAZOLE 40 MG CAPSULE.DR PO (05:36)
[2023-08-01 08:18] LABS: Magnesium 2.1 mg/dL (1.8-2.4)
[2023-08-01 08:36] LABS: PROCALCITONIN 0.32 ng/mL (0.00-0.50)
[2023-08-01 08:37] LABS: C Reactive Protein 13.75 mg/dL (<=0.50)
[2023-08-01 08:58] LABS: Erythrocyte Sedimentation Rate 48 mm/hr (<=20)
--- NOTE | 2023-08-01 10:05 | P.DS_ITS ---
<Statement entered by Shaikh Mikel MD - 08/01/23 22:49> This documentation has been reviewed and approved. Patient seen and examined. Chart reviewed, cased discussed with marcelino Hill's RN. Agree with treatment plan, clinical documentation. Patient presented with generalized weakness, inability to ambulate and was on floor for over 7 hours. He was also noted to have mild right hand/wrist cellulitis and was treated for it with IV vancomycin. His symptoms/weakness improved sig overnight with IVF. He was back to his baseline functional status and was deemed stable for d/c to home. Exam: Walking using a walker with PT. Comfortable. CTA b/l, normal RR Normal HR, no murmur Assessment and Plan Cellulitis Leukocytosis Generalized weakness Chronic right shoulder pain T2 DM GERD Patient stable for d/c on oral doxycycline. F/u with PCP in 1 week. Discharged on holter monitor for HR variability and frequent atrial/ventricular ectopy. He was instructed to f/u with Cardiology in 1-2 weeks after holter DS: Providers Provider Date of admission: 07/31/23 16:44 Primary care physician: ROBYN CARDONA Consults: 07/31/23 15:37 Occupational Therapy Eval and Treat Routine Reason for consultation: Ambulatory dysfunction/weakness Physical Therapy Eval and Treat Routine Reason for consultation: Ambulatory dysfunction/weakness Discharging clinician: Liz Zavaleta DS: Diagnosis Discharge Diagnosis (1) Leukocytosis: Qualifiers: Leukocytosis type: unspecified Qualified Code(s): D72.829 - Elevated white blood cell count, unspecified (2) Inflammation around wrist: Qualifiers: Laterality: right Qualified Code(s): 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, right wrist (3) Ventricular ectopy: (4) Hypomagnesemia: (5) Hypokalemia: (6) Generalized weakness: (7) Chronic right shoulder pain: (8) Diabetes: Qualifiers: Diabetes mellitus complication status: without complication Diabetes mellitus continuous churn buttermaker insulin use: without continuous churn buttermaker use Diabetes mellitus type: type 2 Qualified Code(s): E11.9 - Type 2 diabetes mellitus without complications (9) Hypertension: Qualifiers: Hypertension type: primary hypertension Qualified Code(s): I10 - Essential (primary) hypertension (10) GERD (gastroesophageal reflux disease): Qualifiers: Esophagitis presence: esophagitis presence not specified Qualified Code(s): K21.9 - Gastro-esophageal reflux disease without esophagitis DS: Summary Hospital Course Hospital Course: The patient was admitted to observation for generalized weakness and leukocytosis after being unable to stand at home from a seated position on the floor due to right shoulder and right wrist pain. No foci of leukocytosis was definitively identified, but there was some clinical suspicion of cellulitis versus septic joint due to mild erythema, swelling, and tenderness of the right wrist on presentation. He also had elevated inflammatory markers and mildly elevated Procalcitonin. He was treated with 1 dose of IV vancomycin during this admission and his leukocytosis and wrist pain and swelling have resolved. We continue to suspect possible mild cellulitis and will treat with 5 more days of doxycycline after discharge. The patient also was experiencing frequent ectopy and was found to have hypomagnesemia and hypokalemia. These were repleted with IV and p.o. preparations and had resolved at the time of discharge. His ectopy had completely resolved and his EKG was sinus rhythm on the day of discharge. He is being discharged home in stable condition with a prescription for doxycycline x 5 more days. He should follow-up with his PCP in 5 to 7 days. We have also ordered home health at discharge for further rehab strengthening. ADDENDUM 1400: The pt experienced recurrent tachy PVCs/ectopy this morning that resolved after receiving his atenolol, but he then developed asymptomatic bradycardia in the high 40s, low 50s. He denies any symptoms. He is well known to the cardiology service and will follow up with them shortly after discharge. We will place a 7 day Holter monitor at discharge for complete monitoring of his tachy/aurelia arrhythmias. His home atenolol has been reduced to 25 mg daily pending further review by the cardiology service at his follow up appointment. He remains completely asymptomatic at the time of discharge. Time Spent with Patient Time attestation: Total time spent providing and/or coordinating discharge services: Time spent: greater than 30 minutes Specific discharge activities: Physical exam, discussion of discharge plan, questions answered. Exam Constitutional Vital Signs, click to edit/add: Last Vital Signs Temp 97.4 F L 08/01/23 04:15 Pulse 116 H 08/01/23 09:36 Resp 08/01/23 04:15 BP 140/75 08/01/23 04:15 Pulse Ox 94 L 08/01/23 04:30 O2 Del Method Room Air 08/01/23 04:30 Common normals: no apparent distress, oriented x3 and alert General appearance: cooperative Orientation/consciousness: Yes awake HENMT Common normals: normocephalic and head/scalp atraumatic Eye Common normals: PERRL, EOMs intact bilaterally, conjunctivae normal and no scleral icterus Neck & C-Spine Common normals: no JVD Respiratory Common normals: normal respiratory effort, no use of accessory muscles and clear to auscultation bilaterally Effort & inspection: able to speak in complete sentences and symmetric chest movement Cardio Common normals: no JVD, regular rate, regular rhythm, S1 normal heart sound, S2 normal heart sound and peripheral pulses 2+ throughout Heart sounds: murmur (HSM 3/6) GI Common normals: Normal to inspection, nondistended, normoactive bowel sounds present, soft to palpation and non-tender Bladder/kidney exam: bladder normal to palpation Extremity Common normals: normal to inspection, full ROM, normal capillary refill and no pedal edema Right upper extremity: wrist (Minimal resid swelling. Erythema, tenderness resolved) Neuro Common normals: moves all extremities, no focal motor deficits and no sensory deficits noted Speech: speech normal Psych Common normals: mental status grossly normal and activity/motor behavior normal DS: Data Data Completed and Pending Labs on day of discharge: Labs from last 24 hours 08/01/23 07/31/23 07/31/23 04:04 20:14 17:07 WBC 9.6 RBC 3.77 L Hgb 11.3 L Hct 35.3 L MCV 93.6 MCH 30.0 MCHC 32.0 RDW 14.4 Plt Count 225 MPV 10.8 Neut % (Auto) 73.2 Lymph % (Auto) 17.3 L Carter % (Auto) 7.7 Eos % (Auto) 0.9 Baso % (Auto) 0.6 Neut # (Auto) 7.0 H Lymph # (Auto) 1.7 Carter # (Auto) 0.7 Eos # (Auto) 0.1 Baso # (Auto) 0.1 Abs Immat Gran (auto) 0.03 Seg Neuts % (Manual) Lymphocytes % (Manual) Monocytes % (Manual) Eosinophils % (Manual) Basophils % (Manual) Imm/Tot Granulo (auto) 0.3 Neutrophils # (Manual) Lymphocytes # (Manual) Monocytes # (Manual) Eosinophils # (Manual) Basophils # (Manual) ESR 48 H Sodium 140 Potassium 3.1 L Chloride 106 Carbon Dioxide 26.1 Anion Gap 11.0 BUN 17.0 Creatinine 0.76 Est GFR ( Amer) >60 Est GFR (Non-Af Amer) >60 BUN/Creatinine Ratio 22.4 Glucose 110 H Calcium 8.8 Magnesium 2.1 Total Bilirubin 0.4 AST <5 L ALT 14 L Alkaline Phosphatase 60 Total Creatine Kinase Myoglobin Troponin I High Sens C-Reactive Protein 13.75 H Total Protein 5.5 L Albumin 2.3 L Globulin 3.2 Albumin/Globulin Ratio 0.7 Procalcitonin 0.32 TSH & Free T4 Interp Urine Color Urine Clarity Urine pH Ur Specific Bowman Urine Protein Urine Glucose (UA) Urine Ketones Urine Occult Blood Urine Nitrite Urine Bilirubin Urine Urobilinogen Ur Leukocyte Esterase Urine RBC Urine WBC Ur Squamous Epith Cells Urine Crystals Urine Bacteria Urine Casts Urine Mucus Influenza Type A Ag Influenza Type B Ag SARS-CoV-2 Ag (CV2AG) POC Glucose 242 H 223 H 07/31/23 07/31/23 07/31/23 16:10 14:48 12:27 WBC 16.7 H RBC 4.24 L Hgb 12.7 L Hct 38.8 L MCV 91.5 MCH 30.0 MCHC 32.7 RDW 14.3 Plt Count 268 MPV 9.9 Neut % (Auto) Lymph % (Auto) Carter % (Auto) Eos % (Auto) Baso % (Auto) Neut # (Auto) Lymph # (Auto) Carter # (Auto) Eos # (Auto) Baso # (Auto) Abs Immat Gran (auto) Seg Neuts % (Manual) 93.0 Lymphocytes % (Manual) 3.0 L Monocytes % (Manual) 4.0 Eosinophils % (Manual) 0.0 L Basophils % (Manual) 0.0 L Imm/Tot Granulo (auto) Neutrophils # (Manual) 15.53 H Lymphocytes # (Manual) 0.50 L Monocytes # (Manual) 0.66 Eosinophils # (Manual) 0.00 Basophils # (Manual) 0.00 ESR 70 H Sodium 139 Potassium 3.7 Chloride 103 Carbon Dioxide 20.0 L Anion Gap 19.7 BUN 18.0 Creatinine 0.90 Est GFR ( Amer) >60 Est GFR (Non-Af Amer) >60 BUN/Creatinine Ratio 20.0 Glucose 264 H Calcium 9.0 Magnesium 1.6 L Total Bilirubin AST ALT Alkaline Phosphatase Total Creatine Kinase 165 Myoglobin 209 H Troponin I High Sens 48.2 C-Reactive Protein 11.94 H Total Protein Albumin Globulin Albumin/Globulin Ratio Procalcitonin TSH & Free T4 Interp 0.401 Urine Color Yellow Urine Clarity Clear Urine pH 5.5 Ur Specific Bowman >=1.030 A Urine Protein 30 A Urine Glucose (UA) 500 A Urine Ketones >=80 A Urine Occult Blood Small A Urine Nitrite Negative Urine Bilirubin Small A Urine Urobilinogen 0.2 Ur Leukocyte Esterase Negative Urine RBC 2-5 A Urine WBC 0-2 A Ur Squamous Epith Cells Few A Urine Crystals None seen Urine Bacteria Trace A Urine Casts None seen Urine Mucus None seen Influenza Type A Ag Negative Influenza Type B Ag Negative SARS-CoV-2 Ag (CV2AG) Negative POC Glucose 07/31/23 12:10 WBC RBC Hgb Hct MCV MCH MCHC RDW Plt Count MPV Neut % (Auto) Lymph % (Auto) Carter % (Auto) Eos % (Auto) Baso % (Auto) Neut # (Auto) Lymph # (Auto) Carter # (Auto) Eos # (Auto) Baso # (Auto) Abs Immat Gran (auto) Seg Neuts % (Manual) Lymphocytes % (Manual) Monocytes % (Manual) Eosinophils % (Manual) Basophils % (Manual) Imm/Tot Granulo (auto) Neutrophils # (Manual) Lymphocytes # (Manual) Monocytes # (Manual) Eosinophils # (Manual) Basophils # (Manual) ESR Sodium Potassium Chloride Carbon Dioxide Anion Gap BUN Creatinine Est GFR ( Amer) Est GFR (Non-Af Amer) BUN/Creatinine Ratio Glucose Calcium Magnesium Total Bilirubin AST ALT Alkaline Phosphatase Total Creatine Kinase Myoglobin Troponin I High Sens C-Reactive Protein Total Protein Albumin Globulin Albumin/Globulin Ratio Procalcitonin TSH & Free T4 Interp Urine Color Urine Clarity Urine pH Ur Specific Bowman Urine Protein Urine Glucose (UA) Urine Ketones Urine Occult Blood Urine Nitrite Urine Bilirubin Urine Urobilinogen Ur Leukocyte Esterase Urine RBC Urine WBC Ur Squamous Epith Cells Urine Crystals Urine Bacteria Urine Casts Urine Mucus Influenza Type A Ag Influenza Type B Ag SARS-CoV-2 Ag (CV2AG) POC Glucose 307 H Discharge Plan Discharge Disposition: Home Health Service Condition: Fair Discharge Medications: New doxycycline hyclate 100 mg capsule 100 mg PO BID 5 Days Qty: 10 0RF Continued omeprazole 40 mg capsule,delayed release(DR/EC) 40 mg PO DAILY Qty: 30 0RF glimepiride 4 mg tablet 4 mg PO BID metformin 1,000 mg tablet 1,000 mg PO BID diclofenac sodium 75 mg tablet,delayed release (DR/EC) 75 mg PO BID lisinopril 10 mg tablet 10 mg PO DAILY Changed atenolol 50 mg tablet 25 mg PO DAILY Qty: 30 0RF Print 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 They will start care on August 02. Forms: Portal Instructions Follow Up Appointments: MondayAugust 03 @ 10am with Helena Delacruz NP (Dr. Cardona's office) [phone] Follow up with Cardiology office within 1 week
[2023-08-01] MEDS: ATENOLOL 50 MG TABLET PO (10:18)
[2023-08-01] MEDS: DICLOFENAC SODIUM 25 MG TABLET.DR 75 MG PO (10:18)
[2023-08-01] MEDS: LISINOPRIL 10 MG TABLET PO (10:18)
[2023-08-01] MEDS: POTASSIUM CHLORIDE 10 MEQ ER TABLET 40 MEQ PO (10:18)
[2023-08-01] MEDS: VANCOMYCIN HCL 1,000 MG in 0.9 % SODIUM CHLORIDE 250 ML 250 MG IV (10:21)
--- NOTE | 2023-08-01 10:21 | CM.NOTE ---
Rounds made with Dr. Morin. Dr. Morin reviews findings with Mr. Chung. Plan for discharge today.
--- NOTE | 2023-08-01 10:28 | ECG_ITS ---
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
--- NOTE | 2023-08-01 10:42 | PC.NURSE ---
Patient having runs of PVC's, attemped to call Jailyn RN with no answer, was able to get Anabel on the phone, she stated she would have Jailyn return the call. Respiratory therapy called for stat EKG Tele strips placed in chart.
[2023-08-01 10:55] LABS: Glucometer 242 mg/dL (74-106)
--- NOTE | 2023-08-01 11:16 | SWNOTE1 ---
SW met with pt to discuss dc needs. Pt lives at home by himself. He has a girlfriend, but she does not stay there. He does use a walker at home, it has no wheels. Pt has a split level home and has 5 steps to get from kitchen to bathroom/bedroom area. There is no railing there for him to hold on to. He uses his walker to go up and down them. Pt also has steps to go downstairs, but there is a railing for him to use so he is able to do them. Pt is looking in to getting a railing placed for the 5 step area. SW and pt spoke about home health. SW explained to pt in detail about home health and services. Pt does still drive a little, but his girlfriend goes to the grocery store for him. He is agreeable to home health for a short time. SW reviewed list from medicare.gov, he has no preference. STEVE sent referral to [facility]. Referral included face sheet, physician notes, and therapy notes. STEVE also gave pt information about life alert buttons/necklaces as well. Pt's girlfriend came in room as well and STEVE explained discharge planning to her as well. Medicare Outpatient Observation Notice reviewed and discussed with patient. Pt. verbalized understanding and signed the form. Original given to patient and copy placed in patient?s chart.
[2023-08-01] MEDS: POTASSIUM CHLORIDE 40 MEQ in 0.9 % SODIUM CHLORIDE 250 ML 67.5 MEQ IV (11:49)
[2023-08-01] MEDS: INSULIN ASPART 300 UNIT/3 ML PEN SUBQ (11:53)
--- NOTE | 2023-08-01 13:06 | ECG_ITS ---
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
[2023-08-01 14:30] LABS: Anion Gap 11.3; BUN Creatinine Ratio 14.6; Calcium 8.9 mg/dL (8.5-10.1); Carbon Dioxide 27.2 mmol/L (21.0-32.0); Chloride 105 mmol/L (98-107); Estimated GFR (African America >60 (>=60); Estimated GFR (Non-African Ame >60 (>=60); Glucose 179 mg/dL (74-106); Magnesium 1.9 mg/dL (1.8-2.4); Phosphorus 2.4 mg/dL (2.6-4.7); Potassium 3.5 mmol/L (3.5-5.1); Sodium 140 mmol/L (136-145)
[2023-08-01 14:46] LABS: TSH W/ REFLEX FT4 0.387 uIU/mL (0.358-3.740)
--- NOTE | 2023-08-01 15:02 | SWNOTE1 ---
[facility] is able to accept. Pt is now leaving today. [facility] will see pt on Monday. STEVE let pt and his significant other know that HH will come , they voiced understanding. STEVE sent dc med rec, dc summary, and referral form to [facility] and let Merry at [facility] know he is discharging.
--- OUTSIDE RECORDS SUMMARY | 2023-08-02 08:12 | XMS_ITS | CCD ---
Author Organization [facility] Care Team Providers Care Sales Development Executive Name Role Phone HOUSE, DR BOWSER Primary [...] Attending Unavailable ROSALINDA, MAXI Jackson Attending Unavailable HEMMERASHLYE Attending Unavailable MEGHANA, ROBYN Galarza Attending Unavailable [...] disease (2 sources) Atherosclerotic heart disease of [place] coronary artery without angina pectoris; Translations: [Atherosclerotic heart disease of [place] coronary artery without angina pectoris] Onset: 07-27-2022 Chronic Other aftercare (1 source) Other manager terminal (current) drug therapy; Translations: [OTH DISTRICT MANAGER POSTAL SERVICE CURRENT DRUG THERAPY] Onset: 07-08-2021 Episodic Other aftercare (1 source) intermediate accountant (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) use of aspirin; Translations: [DISTRICT MANAGER POSTAL SERVICE CURRENT USE OF ASPIRIN] Onset: 07-08-2021 Episodic Other aftercare (1 source) intermediate accountant (current) use of oral hypoglycemic drugs; Translations: [DISTRICT MANAGER POSTAL SERVICE USE ORAL HYPOGLYCEMIC DX] Onset: 07-08-2021 Episodic [...] Reference Range Facil ity Follow-Upon 06-21-2023 Follow-Up [id number] Subramanian 1945 M Date Provider Department Center 06/21/2023 271-SHAMAR GARCÍA CARD [facility] No family history on file Level of Service:54410 [place] OFFICE/OUTPATIENT ESTABLISHED MOD MDM 30 MIN Normal [facility] Office Visiton 07-27-2022 Follow-up visit [id number] David Chung 1945 M Date Provider Department Center 07/27/2022 SHAMAR MIKE CARD Maylin Garcia No family history on file Level of Service:86039 [place] OFFICE/OUTPATIENT ESTABLISHED LOW MDM 20-29 MIN Reason for Visit and Comments: Coronary Artery Disease [187] Hypertension [646969] Normal [facility] Covid-19 PCR (CVDTBH)on 03-17 SARS-CoV-2 (COVID-19) RNA LEO+probe Ql (Unsp spec) Not detected Normal NOT DETECTED The Comment on above: Result Comment: When diagnostic testing is negative, the possibility of a false negative should be considered in the context of a patient's recent exposures and the presence of clinical signs and symptoms consistent with SARS-CoV-2. This test is not yet approved or cleared by the [place] Food and Drug Administration (FDA). This test was developed by [employer] [place], [place]. The performance characteristics of this test were validated by The Laboratory. The results are not intended to be used as the sole means for clinical diagnosis or patient management decisions. The is authorized under Clinical Laboratory Improvement Amendments [...] for this test is supported by the [place] of Health and Human Service's declaration that [...] used). Performed By: #### C VDTB #### Laboratory [address] [address] [address] Kelly Montoya CBC AUTO DIFFon 11-13-2020 BASO # 0.1 103/ul Normal 0.0-0.1 [facility] Comment on above: Performed By: #### C BC #### Laboratory [address] [place], [place] [address] Cortez Ashley Basophils/100 WBC (Bld) 1.3 % Normal 0.2-2.0 [facility] Comment on above: Performed By: #### C BC #### Laboratory [address] [id number] Cort[place] Ashley EO # 0.4 103/ul Normal 0.0-0.7 The Comment on above: Performed By: #### C BC #### Laboratory [address] [id number] Cortez Ashley Eosinophils/100 WBC (Bld) 5.0 % Normal 0.9-7.0 [facility] Comment on above: Performed By: #### C BC #### Laboratory [address] [place], [place] [id number] Cortez Ashley Erythrocyte distribution width (RBC) [Ratio] 13.6 % Normal 11.0-15.0 [facility] Comment on above: Performed By: #### C BC #### Laboratory [address] [place], [place] [id number] Cortez Ashley Hematocrit (Bld) [Volume fraction] 47.6 % Normal 42.0-54.0 [facility] Comment on above: Performed By: #### C BC #### Laboratory [address] [place], [place] [id number] Cortez Ashley Hemoglobin (Bld) [Mass/Vol] 15.4 g/dL Normal 14.0-18.0 The Comment on above: Performed By: #### C BC #### Laboratory [address] [id number] Cortez Ashley IG # 0.04 10e3/ul Critically high 0.00-0.03 [facility] Comment on above: Performed By: #### C BC #### Laboratory [address] [id number] Cortez Ashley IG % 0.6 % Critically high 0.0-0.5 [facility] Comment on above: Performed By: #### C BC #### Laboratory [address] [place], [place] [id number] Cortez Ashley LYMPH # 2.0 103/ul Normal 1.2-3.8 The Comment on above: Performed By: #### C BC #### Laboratory [address] [place], [place] [id number] Cortez Sahley Lymphocytes/100 WBC (Bld) 27.9 % Normal 20.5-60.0 The Comment on above: Performed By: #### C BC #### Laboratory [address] [place], [place] [id number] [place]ez Ashley MANUAL DIFF REQ NO Normal [facility] Comment on above: Performed By: #### C BC #### Laboratory [address] [place], [place] [id number] Cortez Ashley MCH (RBC) [Entitic mass] 30.3 pg Normal 25.9-34.0 [facility] Comment on above: Performed By: #### C BC #### Laboratory [address] [place] [address] Cortez Ashley MCHC (RBC) [Mass/Vol] 32.4 g/dL Normal 29.9-35.2 The Comment on above: Performed By: #### C BC #### Laboratory [address] [place] [address] Cortez Ashley MCV (RBC) [Entitic vol] 93.5 fL Normal 80.0-94.0 The Comment on above: Performed By: #### C BC #### Laboratory [address] [place] [address] Cortez Ashley MONO # 0.5 103/ul Normal 0.3-0.8 The Comment on above: Performed By: #### C BC #### Laboratory [address] [place], [place] [id number] Cortez Ashley Monocytes/100 WBC (Bld) 7.4 % Normal 1.7-12.0 The Comment on above: Performed By: #### C BC #### Laboratory [address] [place], [place] [id number] Cortez Ashley NEUT # 4.1 103/ul Normal 1.4-6.5 The Comment on above: Performed By: #### C BC #### Laboratory [address] [id number] Cortez Ramirez Neutrophils/100 WBC (Bld) 57.8 % Normal 43.0-75.0 [facility] Comment on above: Performed By: #### C BC #### Laboratory [address] [id number] Cortez Ramirez Platelet mean volume (Bld) [Entitic vol] 11.1 fL Normal 9.5-13.5 The Comment on above: Performed By: #### C BC #### Laboratory [address] [address] Cortez Ramirez PLT 167 103/ul Normal 150-450 The Comment on above: Performed By: #### C BC #### Laboratory [address] [address] Cortez Ramirez RBC 5.09 106/ul Normal 4.70-6.10 The Comment on above: Performed By: #### C BC #### Laboratory [address] [id number] Cortez Ramirez WBC 7.1 103/ul Normal 4.0-11.0 The Comment on above: Performed By: #### C BC #### Laboratory [address] [id number] Cortez Ramirez Encounters Encounter Date Encounter Type Care Provider Facility Start: 07-27-2023 End: 07-27-2023 ambulatory [facility] Start: 07-18-2023 End: 07-19-2023 ambulatory RADHA ALEGRE Not Available Start: 07-06-2023 End: 07-06-2023 ambulatory ROBYN KOWALSKI Not Available Start: 06-27-2023 End: 06-27-2023 ambulatory ASHLEY CHAO Not Available Start: 06-21-2023 End: 06-21-2023 ambulatory [facility] Start: 06-21-2023 End: 06-21-2023 Encounter for other preprocedural examination [facility] Start: 06-06-2023 End: 06-06-2023 ambulatory MAXI TELLEZ Not Available Start: 05-23-2023 End: 05-23-2023 ambulatory MAXI TELLEZ Not Available Start: 05-09-2023 End: 05-10-2023 ambulatory MAXI SOTOMAYORDLESTON Not Available Start: 05-08-2023 End: 05-08-2023 ambulatory ROBYN KOWALSKI Not Available Start: 04-25-2023 End: 04-26-2023 ambulatory MAXI Jackson ROSALINDA Not Available Start: 07-27-2022 End: 07-27-2022 ambulatory [facility] Start: 07-07-2021 End: 07-07-[address] NIELS TOWNSEND Facility:[facility] Start: 03-29-2021 End: 03-29-[address] NIELS TOWNSEND Facility:[facility] Start: 02-09-2021 End: 02-09-2021 ambulatory SUMMER PERKINS Facility:[facility] Start: 11-13-2020 End: 11-14-[address] NIELS TOWNSEND Facility:[facility] Start: 07-14-2020 End: 07-15-[address] MARQUEZ LISTED REQUEST Facility: Payers Date Payer Category Payer Medicare [id number] 1961 Medicare [id number] 1961 Self-pay 1959 Unknown [id number] 1959 Unknown [id number] 1945 Unknown [id number] 2.16.84 0.1.243380.3.579.2.59 1945 Unknown [id number] .16.84 0.1.538481.3.579.2.59 1945 Unknown [id number] 2.16.84 0.1.698135.3.579.2.593 1945 Unknown [id number] 2.16.84 0.1.439184.3.579.2.593 1945 Unknown [id number] 2.16.84 0.1.878483.3.579.2.593 1945 Unknown [id number] 2.16.84 0.1.201636.3.579.2.1258 1945 Unknown [id number] 2.16.84 0.1.562853.3.579.2.1258 1943 Unknown [id number] 2.16.84 0.1.994009.3.579.2.1258 1943 Unknown [id number] 2.16.84 0.1.382037.3.579.2.1258 1943 Unknown [id number] 2.16.84 0.1.787462.3.579.2.1258 1945 Unknown [id number] 2.16.84 0.1.432417.3.579.2.1258 1943 Unknown [id number] 2.16.84 0.1.735097.3.579.2.1258 1943 Unknown [id number] 2.16.84 0.1.636756.3.579.2.1258 1943 Unknown [id number] 2.16.84 0.1.067995.3.579.2.1258 1945 Unknown [id number] 2.16.84 0.1.296293.3.579.2.1258 1945 Unknown [id number] 2.16.84 0.1.351918.3.579.2.1258 1945 Unknown [id number] 2.16.8 40.1.346313.3.579.2.1286 Unknown [id number] 2.16.84 0.1.053318.3.579.2.593 Progress note 06-21-2023 Note Date & Type Note Facility 06-21-2023 Note [facility] Cardiology Clinic Note Chief Complaint: [...] 1. Electrocardiogram abnormal 2. Coronary arteriosclerosis in [place] artery - stents 2006 rca and cirx no sympt (more content not included)... [facility] Progress note 07-27-2022 Note Date & Type Note Facility 07-27-2022 Note [facility] Cardiology Clinic Note Chief Complaint: [...] electrocardiogram [ECG] [EKG] 2. 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 Type [...] problems arise Shamar García MD, MPH, FACC, [facility], [facility] Interventional Cardiology Pager Email: [email or web address] Summary Purpose Family History No Family [...] DATE CREATED AUTHOR AUTHOR'S ORGANIZ ATION 06/22/2023 [facility] DATE CREATED AUTHOR AUTHOR'S ORGANIZ ATION 07/22/2023 [facility] DATE CREATED AUTHOR AUTHOR'S ORGANIZ ATION 07/28/2023 [...] BE BASED ON THE PRIMARY CLINICAL RECORDS. [employer] provides no warranty or guarantee of the accuracy or completeness of information in this document.
--- NOTE | 2023-08-02 10:53 | CM.DCFOLLOWU ---
08/01- 1st attempt. No answer
--- NOTE | 2023-08-02 11:21 | CM.DCFOLLOWU ---
1st attempt, no answer 08/02/23
--- NOTE | 2023-08-04 11:08 | CM.DCFOLLOWU ---
Person spoke with: Marlon How are you feeling? Good How is your pain? No pain Did you understand your discharge instructions? Yes Do you have any questions about your discharge instructions? No Were you given any prescriptions at discharge? Yes Were you able to get your prescriptions filled? Yes Do you understand how to take your medications as ordered? Yes Do you have any questions about your follow up appointment and do you plan to keep your follow up appointment? I missed my appt with Dr. Cardona today and I had to change my appt with cardiology. I do plan on rescheduling also with family doctor. Is there anything else that you would like to discuss? No Questions/Comments/Concerns/Other:
== END 2023-08-01 17:08 | disposition home health service (06) ==
LOC: ER 16:37 → MS 08-01 10:09
PROVIDERS: Admitting Provider Internal Medicine; Emergency Provider Emergency Medicine; PCP Internal Medicine; Visit Provider Nurse Practitioner
DX: L03.113 Cellulitis of right upper limb (principal); D72.829 Elevated white blood cell count, unspecified; R53.1 Weakness; G89.29 Other chronic pain; M25.511 Pain in right shoulder; E11.9 Type 2 diabetes mellitus without complications; K21.9 Gastro-esophageal reflux disease without esophagitis; I10 Essential (primary) hypertension; I49.3 Ventricular premature depolarization; E83.42 Hypomagnesemia; F17.210 Nicotine dependence, cigarettes, uncomplicated; Z86.711 Personal history of pulmonary embolism; I25.2 Old myocardial infarction; Z95.5 Presence of coronary angioplasty implant and graft; Z98.890 Other specified postprocedural states; Z79.899 Other long term (current) drug therapy; Z79.84 Long term (current) use of oral hypoglycemic drugs; Z90.49 Acquired absence of other specified parts of digestive tract; Z90.89 Acquired absence of other organs; M19.90 Unspecified osteoarthritis, unspecified site; Z20.822 Contact with and (suspected) exposure to COVID-19
CPT/HCPCS: 36415; 36416; 71045; 73030; 73110; 80048; 80053; 81001; 82550; 82948; 83735; 83874; 84100; 84145; 84443; 84484; 85007; 85025; 85027; 85652; 86140; 87040; 87804; 87811; 93005; 93242; 94761; 96365; 96366; 96367; 96372; 97161; 97165; 97535; 99285; G0378; J3370; J3480

== ENCOUNTER 2023-08-15 07:21 | Outpatient (OUT) | payer MEDICARE, BC, SELFPAY ==
--- NOTE | 2023-08-15 | PCN_ITS ---
CARDIAC STRESS TEST Requesting Physician: Nayely < > Procedure Date: 08/15/2023 PERFORMING PROVIDER: Gabe Cardoza M.D. INDICATION: Pre-op clearance. STRESS TEST PROTOCOL: Lexiscan myocardial perfusion imaging. Resting heart rate: 76 Max heart rate: 102 Resting blood pressure: 146/72 Maximum blood pressure: 146/72 ST changes: No ST changes meeting the criteria of ischemia are noted. Symptoms: None reported. Arrhythmias: There is heavy PVC burden. PVCs are seen and isolated, couplet forms, in addition to bigeminy. There are several brief episodes of non- sustained ventricular tachycardia. CONCLUSION: 1. Patient?s baseline EKG is abnormal with sinus rhythm with premature supraventricular complexes, left axis deviation, right bundle branch block, lateral infarct, age indeterminate. 2. There are no definite EKG changes meeting the criteria for ischemia. 3. There is heavy PVC burden. PVCs are seen in isolated, couplets and triplets/SVT forms. Ventricular bigeminy is also noted. 4. EKG portion is abnormal due to heavy PVC burden, although no definite ECG changes meeting the criteria for ischemia were noted. 5. Please refer to separately interpreted and reported nuclear myocardial perfusion imaging. [facility]
--- NOTE | 2023-08-15 07:10 | NM_ITS ---
Patient Name: KATHE VICTOR MR#: [id number] : 1945 Exam Date: 08/15/2023 Ordering Doctor: DR Shamar García M.D. RADIOLOGY REPORT PROCEDURE: NM EDDIE PERF SPECT REST STR COMPARISON: None. INDICATIONS: Encounter for preprocedural cardiovascular examination TECHNIQUE: Exam Description: Stress/Rest one day protocol gated SPECT Rest Imagin.8 mCi Tc-99m Cardiolite IV on 08/15/2023 Stress Imaging mCi Tc-99m Cardiolite IV on 08/15/2023 Exercise Protocol: 0.4 mg Lexiscan given IV Heart Rate (bpm): Rest: Max: PMHR: Blood Pressure: Rest: Max: Symptoms: Rest and peak stress ECG findings were not reported at the time of this dictation. For more details please see separate cardiac stress test report. FINDINGS: QUALITY OF STUDY: Good. PERFUSION DEFECT: LOCATION: Basal anterior. Basal inferoseptal. Basal inferolateral. Mid-anterior. Mid-inferolateral. Apical anterior. [place]. SIZE: Large (5 or more segments). SEVERITY: Severe. TYPE: Mixed. WALL MOTION: Mild hypokinesis: LV SIZE: Enlarged; EDV 131 mL. LVEF: Abnormal. Calculated EF 44%. SUMMARY: Myocardial perfusion imaging study has ABNORMAL findings. CONCLUSION: 1. Large size, moderate severity defect involving the apex inferior wall extending into the inferoseptal in inferolateral erickson with some redistribution suggesting partial reversible ischemia 2. Dilated left ventricle, EDV 131 milliliters 3. Low left ventricular ejection fraction of 44% Dictated by: Alonzo Hadley MD on 08/15/2023 at 11:11 Approved by: Alonzo Hadley MD on 08/15/2023 at 11:17
--- OUTSIDE RECORDS SUMMARY | 2023-08-15 07:23 | XMS_ITS | CCD ---
Author Organization [facility] Care Team Providers Care Practice Nurse Name Role Phone HOUSE, DR BOWSER Primary [...] ROSALINDA, MAXI Jackson Attending Unavailable ROSALINDA, MAXI aJckson Referring Unavailable ROSALINDA, MAXI Jackson Attending Unavailable [...] disease (2 sources) Atherosclerotic heart disease of [place] coronary artery without angina pectoris; Translations: [Atherosclerotic heart disease of [place] coronary artery without angina pectoris] Onset: 07-27-2022 Chronic Other aftercare (1 source) Other terminal carman (current) drug therapy; Translations: [OTH IT CONSULTANT CURRENT DRUG THERAPY] Onset: 07-08-2021 Episodic Other aftercare (1 source) intermission coordinator (current) use of aspirin; Translations: [IT CONSULTANT CURRENT USE OF ASPIRIN] Onset: 07-08-2021 Episodic Other aftercare (1 source) intermission coordinator (current) use of oral hypoglycemic drugs; Translations: [IT CONSULTANT USE ORAL HYPOGLYCEMIC DX] Onset: 07-08-2021 [...] Reference Range Facil ity Follow-Upon 06-21-2023 Follow-Up [id number] Subramanian 1945 M Date Provider Department Center 06/21/2023 271-SHAMAR GARCÍA CARD [facility] No family history on file Level of Service:45294 [place] OFFICE/OUTPATIENT ESTABLISHED MOD MDM 30 MIN Normal [facility] Office Visiton 07-27-2022 Follow-up visit [id number] David Chung 1945 M Date Provider Department Center 07/27/2022 SHAMAR MIKE CARD Maylin Garcia No family history on file Level of Service:51198 [place] OFFICE/OUTPATIENT ESTABLISHED LOW MDM 20-29 MIN Reason for Visit and Comments: Coronary Artery Disease [187] Hypertension [195428] Normal [facility] Covid-19 PCR (CVDTBH)on 03-17 SARS-CoV-2 (COVID-19) RNA LEO+probe Ql (Unsp spec) Not detected Normal NOT DETECTED [facility] Comment on above: Result Comment: When diagnostic testing is negative, the possibility of a false negative should be considered in the context of a patient's recent exposures and the presence of clinical signs and symptoms consistent with SARS-CoV-2. This test is not yet approved or cleared by the [place] Food and Drug Administration (FDA). This test was developed by [facility], [place], [place]. The performance characteristics of this test were validated by [facility]. The results are not intended to be used as the sole means for clinical diagnosis or patient management decisions. [facility] is authorized under Clinical Laboratory Improvement [...] for this test is supported by the [place] of Health and Human Service's declaration that [...] used). Performed By: #### C VDTB #### [facility] [address] [address] [address] Kelly Montoya CBC AUTO DIFFon 11-13-2020 BASO # 0.1 103/ul Normal 0.0-0.1 [facility] Comment on above: Performed By: #### C BC #### [facility] [address] [place], [place] [address] Cortez Ashley Basophils/100 WBC (Bld) 1.3 % Normal 0.2-2.0 [facility] Comment on above: Performed By: #### C BC #### [facility] [address] [id number] Cortez Ashley EO # 0.4 103/ul Normal 0.0-0.7 [facility] Comment on above: Performed By: #### C BC #### [facility] [address] [id number] Cortez Ashley Eosinophils/100 WBC (Bld) 5.0 % Normal 0.9-7.0 [facility] Comment on above: Performed By: #### C BC #### [facility] [address] [place], [place] [id number] Cortez Ashley Erythrocyte distribution width (RBC) [Ratio] 13.6 % Normal 11.0-15.0 [facility] Comment on above: Performed By: #### C BC #### [facility] [address] [place], [place] [id number] Cortez Ashley Hematocrit (Bld) [Volume fraction] 47.6 % Normal 42.0-54.0 [facility] Comment on above: Performed By: #### C BC #### [facility] [address] [place], [place] [id number] Cortez Ashley Hemoglobin (Bld) [Mass/Vol] 15.4 g/dL Normal 14.0-18.0 [facility] Comment on above: Performed By: #### C BC #### [facility] [address] [id number] Cortez Ashley IG # 0.04 10e3/ul Critically high 0.00-0.03 [facility] Comment on above: Performed By: #### C BC #### [facility] [address] [id number] Cortez Ashley IG % 0.6 % Critically high 0.0-0.5 [facility] Comment on above: Performed By: #### C BC #### [facility] [address] [place], [place] [id number] Cortez Ashley LYMPH # 2.0 103/ul Normal 1.2-3.8 [facility] Comment on above: Performed By: #### C BC #### [facility] [address] [place], [place] [id number] Cortez Ashley Lymphocytes/100 WBC (Bld) 27.9 % Normal 20.5-60.0 [facility] Comment on above: Performed By: #### C BC #### [facility] [address] [place], [place] [id number] Cortez Ashley MANUAL DIFF REQ NO Normal [facility] Comment on above: Performed By: #### C BC #### [facility] [address] [place], [place] [id number] Cortez Ashley MCH (RBC) [Entitic mass] 30.3 pg Normal 25.9-34.0 [facility] Comment on above: Performed By: #### C BC #### [facility] [address] [place] [address] Cortez Ashley MCHC (RBC) [Mass/Vol] 32.4 g/dL Normal 29.9-35.2 [facility] Comment on above: Performed By: #### C BC #### [facility] [address] [place] [address] Cortez Ashley MCV (RBC) [Entitic vol] 93.5 fL Normal 80.0-94.0 [facility] Comment on above: Performed By: #### C BC #### [facility] [address] [place] [address] Cortez Ashley MONO # 0.5 103/ul Normal 0.3-0.8 [facility] Comment on above: Performed By: #### C BC #### [facility] [address] [place], [place] [id number] Cortez Ashley Monocytes/100 WBC (Bld) 7.4 % Normal 1.7-12.0 [facility] Comment on above: Performed By: #### C BC #### [facility] [address] [place], [place] [address] Cortez Ashley NEUT # 4.1 103/ul Normal 1.4-6.5 [facility] Comment on above: Performed By: #### C BC #### [facility] [address] [id number] Cortez Ramirez Neutrophils/100 WBC (Bld) 57.8 % Normal 43.0-75.0 [facility] Comment on above: Performed By: #### C BC #### [facility] [address] [address] Cortez Ramirez Platelet mean volume (Bld) [Entitic vol] 11.1 fL Normal 9.5-13.5 [facility] Comment on above: Performed By: #### C BC #### [facility] [address] [address] Cortez Ramirez PLT 167 103/ul Normal 150-450 [facility] Comment on above: Performed By: #### C BC #### [facility] [address] [address] Cortez Ramirez RBC 5.09 106/ul Normal 4.70-6.10 [facility] Comment on above: Performed By: #### C BC #### [facility] [address] [address] Cortez Ramirez WBC 7.1 103/ul Normal 4.0-11.0 [facility] Comment on above: Performed By: #### C BC #### [facility] [address] [id number] Cortez Ramirez Encounters Encounter Date Encounter Type Care Provider Facility Start: 07-27-2023 End: 07-27-2023 ambulatory [facility] Start: 07-18-2023 End: 07-19-2023 ambulatory RADHA ALEGRE Not Available Start: 07-06-2023 End: 07-06-2023 ambulatory ROBYN KOWALSKI Not Available Start: 06-27-2023 End: 06-27-2023 ambulatory ASHLEY CHAO Not Available Start: 06-21-2023 End: 06-21-2023 ambulatory AB [facility] Start: 06-21-2023 End: 06-21-2023 Encounter for other preprocedural examination [facility] Start: 06-06-2023 End: 06-06-2023 ambulatory MAXI TELLEZ Not Available Start: 05-23-2023 End: 05-23-2023 ambulatory MAXI TELLEZ Not Available Start: 05-09-2023 End: 05-10-2023 ambulatory MAXI SOTOMAYORDLESTON Not Available Start: 05-08-2023 End: 05-08-2023 ambulatory ROBYN KOWALSKI Not Available Start: 04-25-2023 End: 04-26-2023 ambulatory MAXI Jackson ROSALINDA Not Available Start: 07-27-2022 End: 07-27-2022 ambulatory [facility] Start: 07-07-2021 End: 07-07-[address] NIELS TOWNSEND Facility:[facility] Start: 03-29-2021 End: 03-29-[address] NIELS TOWNSEND Facility:[facility] Start: 02-09-2021 End: 02-09-2021 ambulatory SUMMER PERKINS Facility:[facility] Start: 11-13-2020 End: 11-14-[address] NIELS TOWNSEND Facility:[facility] Start: 07-14-2020 End: 07-15-[address] MARQUEZ LISTED REQUEST Facility: Payers Date Payer Category Payer Medicare [id number] 1961 Medicare [id number] 1961 Self-pay 1959 Unknown [id number] 1959 Unknown [id number] 1945 Unknown [id number] 2.16.84 0.1.079847.3.579.2.59 1945 Unknown [id number] .16.84 0.1.599598.3.579.2.59 1945 Unknown [id number] 2.16.84 0.1.144150.3.579.2.593 1945 Unknown [id number] 2.16.84 0.1.621187.3.579.2.593 1945 Unknown [id number] 2.16.84 0.1.613112.3.579.2.593 1945 Unknown [id number] 2.16.84 0.1.165043.3.579.2.1258 1943 Unknown [id number] 2.16.84 0.1.330536.3.579.2.1258 1945 Unknown [id number] 2.16.84 0.1.753276.3.579.2.1258 1945 Unknown [id number] 2.16.84 0.1.493320.3.579.2.1258 1943 Unknown [id number] 2.16.84 0.1.306918.3.579.2.1258 1945 Unknown [id number] 2.16.84 0.1.250678.3.579.2.1258 1945 Unknown [id number] 2.16.84 0.1.921018.3.579.2.1258 1945 Unknown [id number] 2.16.84 0.1.833095.3.579.2.1258 1943 Unknown [id number] 2.16.84 0.1.489775.3.579.2.1258 1945 Unknown [id number] 2.16.84 0.1.288828.3.579.2.1258 1943 Unknown [id number] 2.16.84 0.1.442043.3.579.2.1258 1945 Unknown [id number] 2.16.8 40.1.576080.3.579.2.1286 Unknown [id number] 2.16.84 0.1.815724.3.579.2.593 Progress note 06-21-2023 Note Date & Type Note Facility 06-21-2023 Note [facility] Cardiology Clinic Note Chief Complaint: [...] 1. Electrocardiogram abnormal 2. Coronary arteriosclerosis in [place] artery - stents 2006 rca and cirx no sympt (more content not included)... [facility] Progress note 07-27-2022 Note Date & Type Note Facility 07-27-2022 Note [facility] Cardiology Clinic Note Chief Complaint: [...] electrocardiogram [ECG] [EKG] 2. 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 Type [...] problems arise Shamar García MD, MPH, FACC, [facility], [facility] Interventional Cardiology Pager Email: [email or web address] Summary Purpose Family History No Family History [...] DATE CREATED AUTHOR AUTHOR'S ORGANIZ ATION 06/22/2023 [facility] DATE CREATED AUTHOR AUTHOR'S ORGANIZ ATION 07/22/2023 [facility] DATE CREATED AUTHOR AUTHOR'S ORGANIZ ATION [...] BE BASED ON THE PRIMARY CLINICAL RECORDS. [employer] provides no warranty or guarantee of the accuracy or completeness of information in this document.
[2023-08-15] MEDS: REGADENOSON 0.4 MG/5 ML SYRINGE 0.400000000000000022 MG IV (09:15)
--- NOTE | 2023-08-15 10:47 | PC.NURSE ---
Patient history, reason for testing and medication list reviewed prior to beginning stress test. Patient had no questions for this RN regarding the exam. Lexiscan was administered by this RN followed by nuclear med by Jax. Patient reports no side effects following the injection. Patient has an increase in the frequency of PVC's through out the time he was monitored but reported no symptoms as a result. Patient had no complaints of chest pain, shortness of breath or discomfort during the test or monitoring. Patient was taken by wheelchair to the cafeteria to eat following the completion of the test and all paper work was given to [facility] ([place]).
== END 2023-08-15 07:22 | disposition home or self-care (01) ==
LOC: NM 07:21
PROVIDERS: PCP Internal Medicine; Visit Provider Internal Medicine Interventional Cardiology
DX: Z01.810 Encounter for preprocedural cardiovascular examination (principal)
CPT/HCPCS: 78452; 93017; A9500; J2785

== ENCOUNTER 2023-09-22 09:17 | Outpatient (OUT) | payer MEDICARE, BC, SELFPAY ==
--- NOTE | 2023-09-22 09:37 | MR_ITS ---
[address] [address] Patient Name: KATHE VICTOR MRN: [id number] date: 1945 Sex: M Assigned Patient Location: MRI Current Patient Location: Accession/Order Number: [id number] Exam Date: 09/22/2023 10:15 Report Date: 09/25/2023 04:22 At the request of: NON-STAFF PHYSICIAN Procedure: MR cervical spine wo con EXAMINATION: MR cervical spine wo con HISTORY: Cervical [id number] ; chronic cervical pain COMPARISON: No relevant comparison available. TECHNIQUE: A variety of imaging planes and parameters were utilized for visualization of suspected pathology without and/or with intravenous Dotarem contrast based on examination type. FINDINGS: CRANIOCERVICAL AREA: The cerebellar tonsils extend into, but not below the foramen magnum. PARASPINAL AREA: Normal with no visible mass. BONES: Reversal of normal lordotic curvature cervical spine. Minimal grade 1 retrolisthesis of C6 on C7. No fracture or bone lesion. CORD: Normal caliber, contour, and signal intensity. CERVICAL DISC LEVELS: C2-C3: Early degenerative disc disease is present without focal protrusion or neural impingement. C3-C4: Moderate left foramen narrowing without significant central canal or right foramen narrowing. Disc desiccation without significant disc bulging. Left uncovertebral joint spurring and moderate degenerative facet arthropathy. C4-C5: Moderate right foramen narrowing without significant central canal or left foramen narrowing. Mild diffuse disc bulging and moderate right uncovertebral joint spurring. No significant disc height reduction. Mild degenerative facet arthropathy on right. C5-C6: Mild central canal and bilateral foramen narrowing. Prominent right paracentral disc osteophyte complex contacting and displacing the spinal cord. Mild disc height reduction. Mild bilateral facet arthropathy. C6-C7: Mild-moderate central canal narrowing and marked right foramen narrowing. Mild left foramen narrowing. Prominent right paracentral disc osteophyte complex and uncovertebral joint spurring. Moderate degenerative facet arthropathy, right greater than left. Moderate-marked disc height reduction. C7-T1:. Moderate degenerative disc disease is present without focal protrusion or neural impingement. MR/MR cervical spine wo con IMPRESSION: 1. Reversal of normal lordotic curvature of cervical spine. 2. Mild grade 1 retrolisthesis of C6 on C7. 3. Multilevel moderate foramen narrowing, marked at C6-C7 as detailed above. 4. Mild-moderate central canal narrowing C5-C6, C6-C7. Secondary to degenerative disc disease and facet arthropathy. Electronically authenticated by: ELTON DING Date: 09/25/2023 04:22
--- OUTSIDE RECORDS SUMMARY | 2023-09-22 09:38 | XMS_ITS | CCD ---
Author Organization [facility] CliniSyri Care Team Providers Care Gis Analyst Developer Name Role Phone HOUSE, DR BOWSER Primary [...] Unavailable HOUSE, DR BOWSER Primary Care Unavailable ELTAHAWMilena, EHAB Attending Unavailable ROSALINDA, MAXI Jackson Attending Unavailable ROSALINDA, MAXI Jackson Referring Unavailable KOWALSKI, ROBYN Galarza Attending Unavailable ROSALINDA, MAXI Jackson Attending Unavailable ROSALINDA, MAXI Jackson Referring Unavailable ROSALINDA, MAXI Jackson Attending Unavailable ROSALINDA, MAXI Jackson Attending Unavailable HEMMER, ASHLEY Mathis Attending Unavailable KOWALSKI, ROBYN Galarza Attending Unavailable ALEGRE, RADHA Mancera Attending Unavailable ALEGRE, RADHA Mancera Referring Unavailable KOWALSKI, ROBYN Galarza Attending Unavailable FORTINO, WENCESLAO Jackson Referring Unavailable HOUSE, NIELS Wadsworth Primary Care Unavailable RAYMUNDO GARCIA Attending Unavailable HOUSE, NIELS P Referring Unavailable HOUSE, NIELS P Primary Care Unavailable HOUSE, NIELS Wadsworth Referring Unavailable HOUSE, NIELS P Primary Care Unavailable FORTINO, WENCESLAO Jackson Attending Unavailable HOUSE, NIELS P Referring Unavailable HOUSE, NIELS Wadsworth Primary Care Unavailable Problems Active Problems Problem Classification Problem Date Documented Da te Episodic/Chronic Administrative/social admission (1 source) Person with feared health complaint in whom no diagnosis is made; Translations: [PERS FEAR HLTH COMPLAINT NO DX MADE] Onset: 07-08-2021 Episodic Coagulation and hemorrhagic disorders (4 sources) Thrombocytopenia, unspecified; Translations: [THROMBOCYTOPENIA UNSPECIFIED] Onset: 11-13-2020 Chronic Other aftercare (1 source) Other fci (current) drug therapy; Translations: [OTH SENIOR CARE CURRENT DRUG THERAPY] Onset: 07-08-2021 Episodic Other aftercare (1 source) 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; Translations: [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 OF ASPIRIN] Onset: 07-08-2021 Episodic Other aftercare (1 source) penitentiary (current) use of oral hypoglycemic drugs; Translations: [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 USE ORAL HYPOGLYCEMIC DX] Onset: 07-08-2021 Episodic Other gastrointestinal disorders (1 source) Change in bowel habit; Translations: [Change in bowel habit] Onset: 07-27-2023 Episodic Other gastrointestinal disorders (1 source) Diarrhea Onset: 07-27-2023 Episodic Other injuries and conditions due to external causes (1 source) History of falling; Translations: [HISTORY OF FALLING] Onset: 07-08-2021 Episodic Other nervous system disorders (1 source) Disease of spinal cord, unspecified; Translations: [Disease of spinal cord, unspecified] Onset: 09-08-2023 Chronic Other non-traumatic joint disorders (4 sources) Pain in right hip; Translations: [PAIN IN RIGHT HIP] Onset: 07-07-2021 Episodic Residual codes; unclassified (1 source) Pain, unspecified; Translations: [Pain, unspecified] Onset: 08-24-2023 Episodic Unclassified (1 source) CONTACT W/AND (SUSP) EXPOS COVID-19; Translations: [CONTACT W/AND (SUSP) EXPOS COVID-19] Onset: 04-01-2021 Unclassified (1 source) Low back pain, unspecified; Translations: [Low back pain, unspecified] Onset: 09-08-2023 Unclassified (1 source) Consult Onset: 09-08-2023 Past or Other Problems Problem Classification Problem [...] Results Test Name Value Interpretation Reference Range Facility XR SPINE LUMB BENDING ONLY 2 -3 VWSon 09-11-2023 XR SPINE LUMB BENDING ONLY 2-3 VWS XR SPINE LUMB BENDING ONLY 2-3 VWS Lumbosacral spine: 09/08/2023 9:10 AM. Reason for study: Low back pain, unspecified back pain laterality, unspecified chronicity, unspecified whether sciatica present. Comparison: MRI lumbar spine from 05/30/2023 Technique: Flexion/extension lateral views of the lumbosacral spine were obtained. Findings: Similar-appearing vertebral body heights. Grade 1 retrolisthesis of L2 on L3. Grade 1 retrolisthesis of L3 on L4. Grade 1 anterolisthesis of L4 on L5. Grade 1 retrolisthesis of L5 on S1. Moderate to severe degenerative disc disease most pronounced at the lumbosacral junction and L2-3. Facet arthropathy appears most pronounced at the lower lumbar spine. Atheromatous calcifications. Impression: 1. Multilevel grade 1 spondylolisthesis as above. 2. Moderate to severe degenerative disc disease most pronounced at L2-3 and the lumbosacral junction. Finalized by Patricia Gonzalez MD on 09/11/2023 9:23 AM [facility] 36on 08-18-2023 36 Regarding stress cristian t result from 08/15/2023: MD Mirta Danielle MA If this shows no changes to his prior abnormal stress test, he would be at acceptable moderate risk to proceed with spine surgery; recommend strict heart rate and blood pressure control and avoidance of major fluid shifts This shows infarct with mild robert-infarct ischemia: he is at moderate risk to proceed with surgery. Thanks for patient on his VM. Faxed this to Dr. Loco's office. [facility] Follow-Upon 06-21-2023 Follow-Up [id number] David Chung 1945 M Date Provider Department Center 06/21/2023 Dominik-KIESHA CASTILLO CARD [facility] No family history on file Level of Service:75399 [place] OFFICE/OUTPATIENT ESTABLISHED MOD MDM 30 MIN [facility] Covid-19 PCR (CVDTBH)on 03-17 SARS-CoV-2 (COVID-19) RNA LEO+probe Ql (Unsp spec) Not detected Normal NOT DETECTED [facility] Comment on above: Result Comment: When diagnostic testing is negative, the possibility of a false negative should be considered in the context of a patient's recent exposures and the presence of clinical signs and symptoms consistent with SARS-CoV-2. This test is not yet approved or cleared by the [place] Food and Drug Administration (FDA). This test was developed by [employer], [place], [place]. The performance characteristics of this test were validated by [facility]. The results are not intended to be used as the sole means for clinical diagnosis or patient management decisions. [facility] is authorized under Clinical Laboratory Improvement [...] for this test is supported by the Consulting Manager of Health and Human Service's declaration that [...] Performed By: #### C VDTB #### [facility] [address] [place] [address] Dr. Kelly Montoya CBC AUTO DIFFon 11-13-2020 BASO # 0.1 103/ul Normal 0.0-0.1 [facility] Comment on above: Performed By: #### C BC #### [facility] [address] [place] [address] Cortez Ramirez Basophils/100 WBC (Bld) 1.3 % Normal 0.2-2.0 [facility] Comment on above: Performed By: #### C BC #### [facility] [address] [place] [address] Cortez Ashley EO # 0.4 103/ul Normal 0.0-0.7 [facility] Comment on above: Performed By: #### C BC #### [facility] [address] [place] [address] Cortez Ashley Eosinophils/100 WBC (Bld) 5.0 % Normal 0.9-7.0 [facility] Comment on above: Performed By: #### C BC #### [facility] [address] [place] [address] Cortez Ashley Erythrocyte distribution width (RBC) [Ratio] 13.6 % Normal 11.0-15.0 [facility] Comment on above: Performed By: #### C BC #### [facility] [address] [place] [address] Cortez Ashley Hematocrit (Bld) [Volume fraction] 47.6 % Normal 42.0-54.0 [facility] Comment on above: Performed By: #### C BC #### [facility] [address] [place] [address] Cortez Ashley Hemoglobin (Bld) [Mass/Vol] 15.4 g/dL Normal 14.0-18.0 [facility] Comment on above: Performed By: #### C BC #### [facility] [address] [place] [address] Cortez Ashley IG # 0.04 10e3/ul Critically high 0.00-0.03 [facility] Comment on above: Performed By: #### C BC #### [facility] [address] [place] [address] Cortez Ashley IG % 0.6 % Critically high 0.0-0.5 [facility] Comment on above: Performed By: #### C BC #### [facility] [address] [place] [address] Cortez Ashley LYMPH # 2.0 103/ul Normal 1.2-3.8 [facility] Comment on above: Performed By: #### C BC #### [facility] [address] [place] [address] Cortez Ashley Lymphocytes/100 WBC (Bld) 27.9 % Normal 20.5-60.0 [facility] Comment on above: Performed By: #### C BC #### [facility] [address] [place], [place] [id number] Cortezvioleta Ramirez MANUAL DIFF REQ NO Normal [facility] Comment on above: Performed By: #### C BC #### [facility] [address] [place], [place] [id number] Cortezvioleta Ramirez MCH (RBC) [Entitic mass] 30.3 pg Normal 25.9-34.0 [facility] Comment on above: Performed By: #### C BC #### [facility] [address] [place] [address] Cortezvioleta Ramirez MCHC (RBC) [Mass/Vol] 32.4 g/dL Normal 29.9-35.2 [facility] Comment on above: Performed By: #### C BC #### [facility] [address] [place] [address] Cortezvioleta Ramirez MCV (RBC) [Entitic vol] 93.5 fL Normal 80.0-94.0 [facility] Comment on above: Performed By: #### C BC #### [facility] [address] [place] [address] Cortezvioleta Ramirez MONO # 0.5 103/ul Normal 0.3-0.8 [facility] Comment on above: Performed By: #### C BC #### [facility] [address] [place] [address] Cortez Michaelen Monocytes/100 WBC (Bld) 7.4 % Normal 1.7-12.0 [facility] Comment on above: Performed By: #### C BC #### [facility] [address] [place] [address] Cortez Ashley NEUT # 4.1 103/ul Normal 1.4-6.5 [facility] Comment on above: Performed By: #### C BC #### [facility] [address] [place] [address] Cortez Ashley Neutrophils/100 WBC (Bld) 57.8 % Normal 43.0-75.0 [facility] Comment on above: Performed By: #### C BC #### [facility] [address], [place] [address] Cortez Ramirez Platelet mean volume (Bld) [Entitic vol] 11.1 fL Normal 9.5-13.5 [facility] Comment on above: Performed By: #### C BC #### [facility] [address], [place] [address] Cortez Ashley PLT 167 103/ul Normal 150-450 [facility] Comment on above: Performed By: #### C BC #### [facility] [address], [place] [address] Cortez Ashley RBC 5.09 106/ul Normal 4.70-6.10 [facility] Comment on above: Performed By: #### C BC #### [facility] [address], [place] [address] Cortez Ashley WBC 7.1 103/ul Normal 4.0-11.0 [facility] Comment on above: Performed By: #### C BC #### [facility] [address], [place] [address] Cortez Ramirez Encounters Encounter Date Encounter Type Care Provider Facility Start: 09-08-2023 End: 09-09-2023 ambulatory [facility] Start: 09-08-2023 End: 09-18-2023 ambulatory [facility] Start: 08-24-2023 End: 08-24-2023 ambulatory ROBYN KOWALSKI Not Available Start: 07-27-2023 End: 07-27-2023 ambulatory RAYMUNDO Renetta [facility] Start: 07-18-2023 End: 07-19-2023 ambulatory RADHA ALEGRE Not Available Start: 07-06-2023 End: 07-06-2023 ambulatory ROBYN KOWALSKI Not Available Start: 06-27-2023 End: 06-27-2023 ambulatory ASHLEY CHAO Not Available Start: 06-21-2023 End: 06-21-[address] [facility] Start: 06-21-2023 End: 06-21-2023 Encounter for other preprocedural examination EHAB [facility] Start: 06-06-2023 End: 06-06-2023 ambulatory MAXI LOCO Not Available Start: 05-23-2023 End: 05-23-2023 ambulatory MAXI LOCO Not Available Start: 05-09-2023 End: 05-10-2023 ambulatory MAXI LOCO Not Available Start: 05-08-2023 End: 05-08-2023 ambulatory ROBYN KOWALSKI Not Available Start: 04-25-2023 End: 04-26-2023 ambulatory MAXI Renetta ROSALINDA Not Available Start: 07-07-2021 End: 07-07-[address] NIELS TOWNSEND Facility:[facility] Start: 03-29-2021 End: 03-29-[address] NIELS TOWNSEND Facility:[facility] Start: 02-09-2021 End: 02-09-2021 ambulatory SUMMER PERKINS Facility:[facility] Start: 11-13-2020 End: 11-14-[address] NIELS TOWNSEND Facility:[facility] Start: 07-14-2020 End: 07-15-2020 ambulatory NONE LISTED REQUEST Facility:[facility] Payers Date Payer Category Payer Medicare [id number] 1961 Medicare [id number] 1961 Self-pay 1959 Unknown [id number] 1959 Unknown [id number] 1945 Unknown [id number] 2.16.84 0.1.373794.3.579.2.59 1943 Unknown [id number] 2.16.84 0.1.600261.3.579.2.593 1943 Unknown [id number] 2.16.84 0.1.313269.3.579.2.59 1943 Unknown [id number] 2.16.84 0.1.545504.3.579.2.593 1943 Unknown [id number] 2..84 0.1.958462.3.579.2.59 1943 Unknown [id number] 2.16.84 0.1.636917.3.579.2.125 1943 Unknown [id number] 2.16.84 0.1.738874.3.579.2.1258 1943 Unknown [id number] 2.16.84 0.1.310522.3.579.2.1258 1943 Unknown [id number] 2.16.84 0.1.315504.3.579.2.1258 1943 Unknown [id number] 2.16.84 0.1.671702.3.579.2.1258 1943 Unknown [id number] 2.16.84 0.1.154802.3.579.2.1258 1943 Unknown [id number] 2.16.84 0.1.451561.3.579.2.1258 1943 Unknown [id number] 2.16.84 0.1.225946.3.579.2.1258 1943 Unknown [id number] 2.16.84 0.1.519718.3.579.2.1258 1943 Unknown [id number] 2.16.84 0.1.785343.3.579.2.1258 1943 Unknown [id number] 2.16.84 0.1.745181.3.579.2.1258 1943 Unknown [id number] 2.16.84 0.1.919769.3.579.2.125 1943 Unknown [id number] 2.16.8 40.1.190234.3.579.2.128 1943 Unknown [id number] 2.16.8 40.1.313492.3.579.2.128 1943 Unknown [id number] 2.16.8 40.1.231327.3.579.2.1286 1943 Unknown [id number] 2.16.8 40.1.223128.3.579.2.1286 Unknown [id number] 2.16.84 0.1.467382.3.579.2.593 Progress note 06-21-2023 Note Date & Type Note Facility 06-21-2023 Note [facility] Clinic Note Chief Complaint: Patient [...] 1. Electrocardiogram abnormal 2. 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 [facility] Summary Purpose Family History No Family [...] and content) DATE CREATED AUTHOR 03/29/2021 [facility] DATE CREATED AUTHOR AUTHOR'S ORGANIZ ATION 07/08/2021 [facility] DATE CREATED AUTHOR AUTHOR'S ORGANIZ ATION 08/20/2023 [facility] DATE CREATED AUTHOR AUTHOR'S ORGANIZ ATION 2023 [facility] DATE CREATED AUTHOR AUTHOR'S ORGANIZ ATION 09/11/2023 [facility] DATE CREATED AUTHOR AUTHOR'S ORGANIZ ATION 09/19/2023 [facility] FOR RECORDS PERTAINING TO PATIENTS [...] BE BASED ON THE PRIMARY CLINICAL RECORDS. [facility]. provides no warranty or guarantee of the accuracy or completeness of information in this document.
== END 2023-09-22 09:18 | disposition home or self-care (01) ==
LOC: MRI 09:18
PROVIDERS: PCP Internal Medicine
DX: G95.9 Disease of spinal cord, unspecified (principal); M50.30 Other cervical disc degeneration, unspecified cervical region
CPT/HCPCS: 72141

== ENCOUNTER 2024-01-22 10:35 | Outpatient (RCR) | payer MEDICARE, BC, SELFPAY | END 2024-02-15 15:39 | disposition home or self-care (01) | LOC: PT 10:35 | PROVIDERS: PCP Internal Medicine | DX: M54.50 Low back pain, unspecified (principal); R26.89 Other abnormalities of gait and mobility; R26.9 Unspecified abnormalities of gait and mobility; R29.3 Abnormal posture | CPT/HCPCS: 97110; 97112; 97162; 97530 ==

== ENCOUNTER 2024-05-03 23:44 | Emergency (ER) | payer MEDICARE, BC, SELFPAY ==
[2024-05-03 23:47] VITALS: BP 163/80; PULSE 59; TEMP 36.9; O2SAT 98; BMI 21.0
--- OUTSIDE RECORDS SUMMARY | 2024-05-03 23:50 | XMS_ITS | CCD ---
Author Organization [facility] Care Team Providers Care Assistant Associate Full Professor Name Role Phone HOUSE, DR BOWSER Primary [...] Unavailable HOUSE, DR BOWSER [facility] Attending Unavailable FORTINO, LINETTE Referring Unavailable CARDONAKIRK Primary Care Unavailable FORTINO, LINETTE Referring Unavailable HOUSE, NIELS Wadsworth Primary Care Unavailable FORTINO, LINETTE Referring Unavailable CARDONA, KIRK Galarza Primary Care Unavailable FORTINO, LINETTE Admitting Unavailable FORTINO, WENCESLAO Jackson Attending Unavailable HOUSE, NIELS Wadsworth Primary Care Unavailable KIRK CARDONA Primary Care Unavailable FORTINO, LINETTE Attending Unavailable FORTINO, LINETTE Referring Unavailable CARDONA, KIRK Galarza Primary Care Unavailable FORTINO, LINETTE Attending Unavailable FORTINO, LINETTE Referring Unavailable CARDONA, KIRK Galarza Primary Care Unavailable FORTINO, LINETTE Referring Unavailable KIRK CARDONA Primary Care Unavailable Kirk Cardona MD Primary Care Provider Kirk Cardona MD Primary Care Provider [phone] RAYMUNDO GARCIA Attending Unavailable HOUSE, NIELS Wadsworth Referring Unavailable HOUSE, NIELS Wadsworth Primary Care Unavailable HOUSE, NIELS Wadsworth Referring Unavailable HOUSE, NIELS Wadsworth Primary Care Unavailable FORTINO, WENCESLAO Jackson Attending Unavailable HOUSE, NIELS P Referring Unavailable HOUSE, NIELS P Primary Care Unavailable HOUSE, NIELS P Referring Unavailable HOUSE, NIELS P Primary Care Unavailable FORTINO, WENCESLAO Jackson Attending Unavailable HOUSE, NIELS P Referring Unavailable HOUSE, NIELS P Primary Care Unavailable FORTINO, WENCESLAO Jackson Attending Unavailable CARY, NIELS P Referring Unavailable CARDONA, KIRK Galarza Primary Care Unavailable FORTINO, WENCESLAO Jackson Attending Unavailable MEGHANA, KIRK Galarza Referring Unavailable MEGHANA, KIRK Galarza Primary Care Unavailable ROSALINDA, MAXI Jackson Attending Unavailable ROSALINDA, MAXI Jackson Referring Unavailable MEGHANA, KIRK Galarza Attending Unavailable ROSALINDA, MAXI Jackson Attending Unavailable ROSALINDA, MAXI Jackson Referring Unavailable GOODLAND, MAXI Jackson Attending Unavailable GOODLAND, MAXI Jackson Attending Unavailable HEMASHLEY MARTÍNEZ Attending Unavailable MEGHANA, KIRK Galarza Attending Unavailable SIS, RADHA Mancera Attending Unavailable RADHA ALEGRE Referring Unavailable MEGHANA, KIRK Galarza Attending Unavailable MEGHANA, KIRK Galarza Attending Unavailable MEGHANA, KIRK Galarza Attending Unavailable MERLIN, KEVIN Jackson Attending Unavailable MEGHANA, KIRK Galarza Attending Unavailable MERLIN, KEVIN Jackson Attending Unavailable Medications Current Medications Medication Drug Class(es) Dates Sig (Normalized) Sig (Original) acetaminophen 325 mg / oxyCODONE hydrochloride 5 mg oral tablet (2 sources) Opioid Agonist Start: 12-06-2023 End: 12-11-2023 take 1-2 tablets by mouth every six hours as needed oxyCODONE-acetamin ophen (Percocet) 5-325 MG tablet Take 1-2 tablets by mouth every 6 (six) hours if needed 12/06/2023 12/11/2023 Discontinued aspirin 81 mg chewable tablet (16 sources) Platelet Aggregation Inhibitor, Nonsteroidal Anti-inflammatory Drug Start: 12-13-2023 take 1 tablet by mouth every twenty-four hours aspirin 81 mg chewable tablet Chew 1 tablet (81 mg total) and swallow daily. 12/13/2023 Active atenolol 50 mg oral tablet (9 sources) beta-Adrenergic Miles Start: 01-25-2024 End: 01-24-2025 take 1 tablet by mouth once daily atenolol (Tenormin) 50 MG tablet Indications: Coronary artery disease involving cheesh-na coronary artery of cheesh-na heart without angina pectoris (CMS/HCC) Take 1 tablet (50 mg) by mouth Daily 90 tablet 3 01/25/2024 01/24/2025 Active Start: 10-04-2023 End: 12-11-2023 take 1 tablet by mouth in the morning atenoloL (TENORMIN) 25 mg tablet Take 1 tablet (25 mg total) by mouth in the morning. 10/04/2023 Active cholecalciferol 0.025 mg oral tablet (2 sources) Vitamin D take 1 tablet by mouth every twenty-four hours cholecalciferol (VITAMIN D3) 1,000 units tablet Take 1 tablet (1,000 Units total) by mouth daily. Active cyclobenzaprine hydrochloride 10 mg oral tablet (2 sources) Muscle Relaxant cyclobenzaprine (FLEXERIL) 10 mg tablet Take 1 tablet (10 mg total) by mouth as needed. Active diclofenac sodium 75 mg delayed release oral tablet (4 sources) Nonsteroidal Anti-inflammatory Drug Start: 2023 take 1 tablet by mouth in the morning diclofenac (VOLTAREN) 75 mg EC tablet Take 1 tablet (75 mg total) by mouth in the morning. 12/13/2023 Active Start: 12-13-2023 End: 12-11-2023 diclofenac (Voltaren) 75 MG EC tablet Take 75 mg by mouth in the morning. Do not start before December 13, 2023. 12/13/2023 12/11/2023 Discontinued Start: 12-13-2023 End: 12-11-2023 diclofenac (Voltaren) 75 MG EC tablet Take 75 mg by mouth in the morning. Do not start before December 13, 2023. 12/13/2023 12/11/2023 Discontinued dicyclomine hydrochloride 20 mg oral tablet (2 sources) Anticholinergic Start: 08-03-2021 take 1 tablet by mouth in the morning dicyclomine (BENTYL) 20 mg tablet Take 1 tablet (20 mg total) by mouth in the morning. 08/03/2021 Active docusate sodium 50 mg / sennosides, senior care 8.6 mg oral tablet (15 sources) Start: 12-06-2023 take 1 tablet by mouth in the morning senna-docusate (Robert-Colace) 8.6-50 MG tablet Take 1 tablet by mouth in the morning and 1 tablet in the evening. 12/06/2023 Active ferrous sulfate 325 mg oral tablet (6 sources) End: 12-11-2023 take 1 tablet by mouth once daily at breakfast ferrous sulfate (IRON) 325 (65 FE) mg tablet Take 1 tablet (325 mg total) by mouth daily with breakfast. Active End: 12-11-2023 take 1 tablet by mouth in the morning Ferrous Sulfate (IRON PO) Take 1 tablet by mouth in the morning. 12/11/2023 Discontinued (Other) glimepiride 4 mg oral tablet (6 sources) Sulfonylurea Start: 09-06-2021 End: 01-24-2025 take 1 tablet by mouth in the morning glimepiride (Amaryl) 4 MG tablet Indications: Type 2 diabetes mellitus without complication, without long-term current use of insulin (CMS/HCC) Take 1 tablet (4 mg) by mouth in the morning and 1 tablet (4 mg) before bedtime. 180 tablet 3 01/25/2024 01/24/2025 Active hydroCHLOROthiazide 25 mg oral tablet (2 sources) Thiazide Diuretic Start: 01-06-2023 End: 12-11-2023 hydroCHLOROthiazide (HYDRODiuril) 25 MG tablet Take 25 mg by mouth 01/06/2023 12/11/2023 Discontinued ammonium lactate 120 mg/ml topical lotion (1 source) Start: 03-28-2024 End: 04-27-2024 ammonium lactate (Lac-Hydrin) 12 % lotion Indications: Xerosis cutis Apply 1 application topically if needed for dry skin Apply to feet twice daily 350 mL 03/28/2024 04/27/2024 Active lisinopril 10 mg oral tablet (5 sources) Angiotensin Converting Enzyme Inhibitor Start: 01-25-2024 End: 01-24-2025 take 1 tablet by mouth once daily lisinopril 10 MG tablet Indications: Chronic systolic heart failure (CMS/HCC) Take 1 tablet (10 mg) by mouth Daily 90 tablet 3 01/25/2024 01/24/2025 Active metFORMIN hydrochloride 1000 mg oral tablet (6 sources) Biguanide Start: 01-25-2024 End: 01-24-2025 take 1 tablet by mouth in the morning metFORMIN (Glucophage) 1000 MG tablet Indications: Type 2 diabetes mellitus without complication, without long-term current use of insulin (CMS/HCC) Take 1 tablet (1,000 mg) by mouth in the morning and 1 tablet (1,000 mg) before bedtime. 90 tablet 3 01/25/2024 01/24/2025 Active Start: 09-08-2021 take 2 tablets by mo uth in the morning, then take 2 tablets by mouth at bedtime metFORMIN (GLUCOPHAGE) 500 mg tablet Take 2 tablets (1,000 mg total) by mouth in the morning and 2 tablets (1,000 mg total) before bedtime. 09/08/2021 Active methocarbamol 500 mg oral tablet (5 sources) Muscle Relaxant Start: 07-19-2023 End: 12-25-2023 take 1 tablet by mouth every eight hours as needed methocarbamol (Robaxin) 500 MG tablet Take 500 mg by mouth every 8 (eight) hours if needed 07/19/2023 12/25/2023 Discontinued exnguwwi-[id number]-AU-ca lcium &mins (THERAGRAN-M) 9 mg iron-400 mcg tablet (2 sources) alodrvpc-cldw-RJ -calci um &mins (THERAGRAN-M) 9 mg iron-400 mcg tablet Take 1 tablet by mouth in the morning. Active omeprazole 40 mg delayed release oral capsule (3 sources) Proton Pump Inhibitor Start: 10-04-2023 End: 11-07-2024 take 1 capsule by mouth once daily omeprazole (PriLOSEC) [address] capsule Indications: Gastroesophageal reflux disease without esophagitis Take 1 capsule (40 mg) by mouth Daily 100 capsule 3 10/04/2023 12/11/2023 Discontinued simvastatin 40 mg oral tablet (6 sources) HMG-CoA Reductase Inhibitor Start: 01-25-2024 End: 01-24-2025 take 1 tablet by mouth once daily simvastatin (Zocor) 40 MG tablet Indications: Moderate mixed hyperlipidemia not requiring statin therapy (CMS/[facility]) Take 1 tablet (40 mg) by mouth Daily 90 tablet 3 01/25/2024 01/24/2025 Active traMADol hydrochloride 50 mg oral tablet (15 sources) Opioid Agonist Start: 12-11-2023 take 1 tablet by mouth twice daily as needed for pain traMADol (Ultram) 50 MG tablet Indications: Low back pain, unspecified back pain laterality, unspecified chronicity, unspecified whether sciatica present Take 1 tablet (50 mg) by mouth 2 (two) times a day as needed for moderate pain 60 tablet 1 12/11/2023 Active Problems Active Problems Problem Classification Problem Date Documented Date Episodic/Chronic Administrative/social admission (1 source) Person with feared health complaint in whom no diagnosis is made; Translations: [PERS FEAR HLTH COMPLAINT NO DX MADE] Onset: 07-08-2021 Episodic Cardiac dysrhythmias (16 sources) Cardiac arrhythmia; Translations: [Cardiac arrhythmia, unspecified] Onset: 01-04-2023 01-04-2023 Chronic Coagulation and hemorrhagic disorders (4 sources) Thrombocytopenia, unspecified; Translations: [THROMBOCYTOPENIA UNSPECIFIED] Onset: 11-13-2020 Chronic Congestive heart failure; nonhypertensive (19 sources) Chronic systolic heart failure; Translations: [Chronic systolic (congestive) heart failure] Onset: 12-11-2023 12-11-2023 Chronic Coronary atherosclerosis and other heart disease (20 sources) Coronary arteriosclerosis; Translations: [Atherosclerotic heart disease of cheesh-na coronary artery without angina pectoris] Onset: 02-09-2012 01-04-2023 Chronic Diabetes mellitus with complications (3 sources) Polyneuropathy due to diabetes mellitus; Translations: [Diabetes mellitus due to underlying condition with diabetic polyneuropathy] 01-18-2024 Chronic Diabetes mellitus without complication (17 sources) Type 2 diabetes mellitus without complications; Translations: [Type 2 diabetes mellitus without complication] Onset: 01-04-2023 01-04-2023 Chronic Disorders of lipid metabolism (16 sources) Hyperlipidemia; Translations: [Hyperlipidemia, unspecified] Onset: 01-04-2023 01-04-2023 Chronic Diverticulosis and diverticulitis (14 sources) Diverticular disease of large intestine; Translations: [Diverticulosis of large intestine without perforation or abscess without bleeding] Onset: 01-04-2023 01-04-2023 Chronic Esophageal disorders (14 sources) Gastroesophageal reflux disease without esophagitis; Translations: [Gastro-esophageal reflux disease without esophagitis] Onset: 08-24-2023 08-24-2023 Chronic Essential hypertension (18 sources) Benign essential hypertension; Translations: [Essential (primary) hypertension] Onset: 01-04-2023 01-04-2023 Chronic Genitourinary symptoms and ill-defined conditions (1 source) Unspecified abnormal findings in urine; Translations: [Unspecified abnormal findings in urine] Onset: 11-21-2023 Episodic Gout and other crystal arthropathies (14 sources) 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; Translations: [Idiopathic chronic gout, multiple sites, without tophus (tophi)] Onset: 01-04-2023 01-04-2023 Chronic Mycoses (17 sources) Onychomycosis due to dermatophyte ; Translations: [Tinea unguium] Onset: 05-17-2023 05-17-2023 Episodic Nutritional deficiencies (14 sources) Vitamin D deficiency; Translations: [Vitamin D deficiency, unspecified] Onset: 05-17-2023 05-17-2023 Chronic Osteoarthritis (14 sources) Osteoarthritis of left knee joint; Translations: [Unilateral primary osteoarthritis, left knee] Onset: 01-04-2023 01-04-2023 Chronic Other aftercare (1 source) Other assisted (current) drug therapy; Translations: [OTH SNF CURRENT DRUG THERAPY] Onset: 07-08-2021 Episodic Other aftercare (1 source) shelter (current) use of aspirin; Translations: [SOLUTIONS ARCHITECT CURRENT USE OF ASPIRIN] Onset: 07-08-2021 Episodic Other aftercare (1 source) shelter (current) use of oral hypoglycemic drugs; Translations: [SNF USE ORAL HYPOGLYCEMIC DX] Onset: 07-08-2021 Episodic Other aftercare (1 source) Encounter for therapeutic drug level monitoring; Translations: [Encounter for therapeutic drug level monitoring] Onset: 11-21-2023 Episodic Other aftercare (1 source) shelter (current) use of anticoagulants; Translations: [long term care social worker (current) use of anticoagulants] Onset: 11-21-2023 Episodic Other and ill-defined heart disease (14 sources) Left atrial enlargement; Translations: [Cardiomegaly] Onset: 01-04-2023 01-04-2023 Chronic Other injuries and conditions due to external causes (1 source) History of falling; Translations: [HISTORY OF FALLING] Onset: 07-08-2021 Episodic Other nervous system disorders (3 sources) Disease of spinal cord, unspecified; Translations: [Disease of spinal cord, unspecified] Onset: 10-26-2023 Chronic Other nervous system disorders (3 sources) Cervical myelopathy; Translations: [Disease of spinal cord, unspecified] Onset: 10-26-2023 01-17-2024 Chronic Other non-traumatic joint disorders (4 sources) Pain in right hip; Translations: [PAIN IN RIGHT HIP] Onset: 07-07-2021 Episodic Other skin disorders (3 sources) Asteatosis cutis; Translations: [Xerosis cutis] 01-18-2024 Episodic Spondylosis; intervertebral disc disorders; other back problems (20 sources) Spondylosis without myelopathy or radiculopathy, cervical region; Translations: [Cervical spondylosis without myelopathy] Onset: 01-04-2023 10-26-2023 Chronic Unclassified (1 source) CONTACT W/AND (SUSP) EXPOS COVID-19; Translations: [CONTACT W/AND (SUSP) EXPOS COVID-19] Onset: 04-01-2021 Unclassified (1 source) Cervical myelopathy (CMS-HCC) [G95.9] Onset: 12-05-2023 Unclassified (2 sources) Low back pain, unspecified; Translations: [Low back pain, unspecified] Onset: 09-08-2023 Unclassified (1 source) Consult Onset: 09-08-2023 Past or Other Problems Problem Classification Problem Date Documented Da te Episodic/Chronic Acute and unspecified renal failure (2 sources) Acute renal failure syndrome; Translations: [Acute kidney failure, unspecified] 12-25-2023 Episodic Cardiac dysrhythmias (15 sources) Bradycardia; Translations: [Bradycardia, unspecified] Onset: 12-11-2023 12-11-2023 Episodic Heart valve disorders (15 sources) Other abnormalities of heart beat; Translations: [Heart murmur] Onset: 04-01-2021 01-04-2023 Episodic Immunizations and screening for infectious disease (18 sources) Encounter for immunization; Translations: [Patient encounter status] Onset: 02-09-2021 Resolved: 07-07-2023 Episodic Mood disorders (2 sources) Mood disorders Onset: 12-05-2023 12-05-2023 Nonspecific chest pain (14 sources) Chest pain; Translations: [Chest pain, unspecified] Onset: 02-08-2012 05-17-2023 Episodic Other connective tissue disease (14 sources) Muscle, ligament and fascia disorders; Translations: [Disorder of muscle, unspecified] Onset: 02-17-2014 05-17-2023 Episodic Other connective tissue disease (14 sources) Trochanteric bursitis of left hip; Translations: [Trochanteric bursitis, left hip] Onset: 05-23-2023 05-23-2023 Episodic Other gastrointestinal disorders (14 sources) Slow transit constipation; Translations: [Slow transit constipation] Onset: 01-04-2023 01-04-2023 Episodic Other gastrointestinal disorders (1 source) Change in bowel habit; Translations: [Change in bowel habit] Onset: 07-27-2023 Episodic Other gastrointestinal disorders (1 source) Diarrhea Onset: 07-27-2023 Episodic Other lower respiratory disease (14 sources) Dyspnea; Translations: [Dyspnea, unspecified] Onset: 07-27-2022 05-17-2023 Episodic Other male genital disorders (14 sources) History of prostatitis; Translations: [Personal history of other diseases of male genital organs] Onset: 01-04-2023 01-04-2023 Episodic Other non-traumatic joint disorders (14 sources) Hip pain; Translations: [Pain in left hip] Onset: 05-23-2023 05-23-2023 Episodic Other screening for suspected conditions (not mental disorders or infectious disease) (20 sources) Cardiovascular stress test abnormal; Translations: [Abnormal result of other cardiovascular function study] Onset: 07-27-2022 05-17-2023 Episodic Other upper respiratory infections (4 sources) Acute upper respiratory infection, unspecified; Translations: [ACUTE UP RESPIRATORY INFECTION UNS] Onset: 03-29-2021 Episodic Pulmonary heart disease (20 sources) H/O: pulmonary embolus; Translations: [Personal history of pulmonary embolism] Onset: 02-09-2012 01-04-2023 Episodic Residual codes; unclassified (14 sources) Tobacco user; Translations: [Tobacco use] Onset: 05-17-2023 05-17-2023 Episodic Residual codes; unclassified (1 source) Pain, unspecified; Translations: [Pain, unspecified] Onset: 08-24-2023 Episodic Spondylosis; intervertebral disc disorders; other back problems (20 sources) Low back pain; Translations: [Low back pain, unspecified back pain laterality, unspecified chronicity, unspecified whether sciatica present] Onset: 05-17-2023 01-17-2024 Episodic Results Test Name Value Interpretation Reference Range Facility XR SPINE CERVICAL FLEXION/EX TENSION ONLYon 01-18-2024 XR SPINE CERVICAL FLEXION/EXTENSION ONLY XR SPINE CERVICAL FLEXION/EXTENSION ONLY XR SPINE CERVICAL FLEXION/EXTENSION ONLY HISTORY: Surgery. COMPARISON: 12/05/2023. IMPRESSION: 1. Flexion and extension views, status post C5-C7 ACDF. No compression deformity or spondylolisthesis. 2. There is persistent exaggerated cervical kyphosis on flexion extension. Finalized by Ortiz Barillas MD on 01/18/2024 12:59 PM Normal [facility] BASIC METABOLIC PANLon 12-05 Anion gap [Moles/Vol] 10 mmol/L Normal 5-15 [facility] Comment on above: Performed By: #### C BCA, PINR, HA1C, BMP #### [facility] ([id number]) [address], [address] [place] [address] Calcium [Mass/Vol] 8.7 mg/dL Normal 8.5-10.5 [facility] Comment on above: Performed By: #### C BCA, PINR, HA1C, BMP #### [facility] ([id number]) [address], [address] [place] [address] Chloride [Moles/Vol] 99 mmol/L Normal 98-109 [facility] Comment on above: Performed By: #### C BCA, PINR, HA1C, BMP #### [facility] ([id number]) [address], [address] [place] [address] CO2 [Moles/Vol] 28 mmol/L Normal 22-32 [facility] Comment on above: Performed By: #### C BCA, PINR, HA1C, BMP #### [facility] ([id number]) [address], [address] [place] [address] Creatinine [Mass/Vol] 0.99 mg/dL Normal 0.60-1.30 [facility] Comment on above: Result Comment: METH OD TRACEABLE TO IDMS STANDARD Performed By: #### C BCA, PINR, HA1C, BMP #### [facility] ([id number]) [address], [address] [place] [address] GFR/1.73 sq M.predicted among non-blacks MDRD (S/P/Bld) [Vol rate/Area] 77 mL/min/{1.73_m2} Normal >59 [facility] Comment on above: Result Comment: Reported eGFR is based on the CKD-EPI 2020 equation that does not use a race coefficient. Performed By: #### C BCA, PINR, HA1C, BMP #### [facility] ([id number]) [address] [facility] [address] [place] [address] Glucose [Mass/Vol] 268 mg/dL High 65-99 [facility] Comment on above: Performed By: #### C BCA, PINR, HA1C, BMP #### [facility] ([id number]) [address] [address] Potassium [Moles/Vol] 4.4 mmol/L Normal 3.5-5.0 [facility] Comment on above: Performed By: #### C BCA, PINR, HA1C, BMP #### [facility] ([id number]) [address] [address] Sodium [Moles/Vol] 137 mmol/L Normal 134-146 [facility] Comment on above: Performed By: #### C BCA, PINR, HA1C, BMP #### [facility] ([id number]) [address] [address] Urea nitrogen [Mass/Vol] 20 mg/dL Normal 5-27 [facility] Comment on above: Performed By: #### C BCA, PINR, HA1C, BMP #### [facility] ([id number]) [address] [address] CBC AND AUTO DIFFon 12-06-19 24 ABSOLUTE BASOPHIL 0.0 X10E9/L Normal 0.0-0.2 [facility] Comment on above: Performed By: #### C BCA, PINR, HA1C, BMP #### [facility] ([id number]) [address] [address] [place] [address] ABSOLUTE NEUTROPHIL 9.0 X10E9/L High 1.5-6.6 [facility] Comment on above: Performed By: #### C BCA, PINR, HA1C, BMP #### [facility] ([id number]) [address], [address] [place] [address] Basophils/100 WBC (Bld) 0.1 % Normal [facility] Comment on above: Performed By: #### C BINTA, PINR, HA1C, BMP #### [facility] ([id number]) [address] [address] [place] [address] Eosinophils (Bld) [#/Vol] 0.0 10*3/uL Normal 0.0-0.4 [facility] Comment on above: Performed By: #### C BINTA, PINR, HA1C, BMP #### [facility] ([id number]) [address], [address] [place] [address] Eosinophils/100 WBC (Bld) 0.0 % Normal [facility] Comment on above: Performed By: #### C BCA, PINR, HA1C, BMP #### [facility] ([id number]) [address] [address] [place] [address] Erythrocyte distribution width (RBC) [Ratio] 17.5 % High 11.5-15.0 [facility] Comment on above: Performed By: #### C BINTA, PINR, HA1C, BMP #### [facility] ([id number]) [address], [address] [place] [address] Hematocrit (Bld) [Volume fraction] 36.7 % Low 39-49 [facility] Comment on above: Performed By: #### C BCA, PINR, HA1C, BMP #### [facility] ([id number]) [address] [address] Hemoglobin (Bld) [Mass/Vol] 12.1 g/dL Low 13.0-17.0 [facility] Comment on above: Performed By: #### C REBECCA JUDD HA1C, BMP #### [facility] ([id number]) [address] [address] Lymphocytes (Bld) [#/Vol] 0.8 10*3/uL Low 1.0-3.5 [facility] Comment on above: Performed By: #### C BINTA, PINR, HA1C, BMP #### [facility] ([id number]) [address] [address] Lymphocytes/100 WBC (Bld) 7.4 % Normal [facility] Comment on above: Performed By: #### C BINTA PINR HA1C, BMP #### [facility] ([id number]) [address] [address] MCH (RBC) [Entitic mass] 27.9 pg Normal 27-34 [facility] Comment on above: Performed By: #### C BINTA PINR HA1C, BMP #### [facility] ([id number]) [address] [address] MCHC (RBC) [Mass/Vol] 33.0 g/dL Normal 32-36 [facility] Comment on above: Performed By: #### C BINTA, PINR, HA1C, BMP #### [facility] ([id number]) [address] [address] MCV (RBC) [Entitic vol] 85 fL Normal 80-100 [facility] Comment on above: Performed By: #### C BCA, PINR, HA1C, BMP #### [facility] ([id number]) [address] [address] Monocytes (Bld) [#/Vol] 0.7 10*3/uL Normal 0-0.9 [facility] Comment on above: Performed By: #### C REBECCA JUDD HAKarthikyean, BMP #### [facility] ([id number]) [address], [address] [place] [address] Monocytes/100 WBC (Bld) 6.5 % Normal [facility] Comment on above: Performed By: #### C BINTA, PINR, HA1C, BMP #### [facility] ([id number]) [address], [address] [place] [address] Neutrophils/100 WBC (Bld) 86.0 % Normal [facility] Comment on above: Performed By: #### C BINTA, PINR, HA1C, BMP #### [facility] ([id number]) [address], [address] [place] [address] Platelet mean volume (Bld) [Entitic vol] 8.3 fL Normal 7-12 [facility] Comment on above: Performed By: #### C BINTA, PINRoxie, HA1C, BMP #### [facility] ([id number]) [address], [address] [place] [address] Platelets (Bld) [#/Vol] 172 10*3/uL Normal 150-450 [facility] Comment on above: Performed By: #### C BINTA, PINR, HA1C, BMP #### [facility] ([id number]) [address], [address] [place] [address] RBC COUNT 4.35 X10E12/L Normal 4.10-5.70 [facility] Comment on above: Performed By: #### C BINTA, PINR, HA1C, BMP #### [facility] ([id number]) [address], [address] [place] [address] WBC (Bld) [#/Vol] 10.5 10*3/uL Normal 4.0-11.0 [facility] Comment on above: Performed By: #### C BCA, PINR, HA1C, BMP #### [facility] ([id number]) [address], [address] [place] [address] Glucose Glucometer (BldC) [M ass/Vol]on 12-06-2023 Glucose [Mass/Vol] 194 mg/dL High 65-99 [facility] Glucose Glucometer (BldC) [M ass/Vol]on 12-05-2023 Glucose [Mass/Vol] 258 mg/dL High 65-99 [facility] Glucose [Mass/Vol] 196 mg/dL High 65-99 [facility] XR SPINE CERVICAL 1 VWon XR SPINE CERVICAL 1 VW XR SPINE CERVICAL 1 VW XR SPINE CERVICAL 1 VW Clinical history:ACDF C5-7 cervical neck pain Comparison: 12/05/2023 Impression: Lateral view cervical spine demonstrates anterior cervical fusion hardware placement with postoperative changes. No acute process. Finalized by Wenceslao Navarro MD on 12/05/2023 7:11 PM Normal [facility] XR SPINE CERVICAL 1 VW XR SPINE CERVICAL 1 VW XR SPINE CERVICAL 1 VW Clinical history:C5-6 spine\ cervical neck pain Comparison: None. Impression: Lateral view cervical spine demonstrates multilevel degenerative disc disease with surgical fusion hardware placement. Finalized by Wenceslao Navarro MD on 12/05/2023 7:11 PM Normal [facility] BASIC METABOLIC PANLon 11-20 Anion gap [Moles/Vol] 8 mmol/L Normal 5-15 [facility] Comment on above: Performed By: #### C BCA, PINR, HA1C, BMP #### [facility] ([id number]) [address], [address] [place] [address] Calcium [Mass/Vol] 9.5 mg/dL Normal 8.5-10.5 [facility] Comment on above: Performed By: #### C BCA, PINR, HA1C, BMP #### [facility] ([id number]) [address], [address] [place] [address] Chloride [Moles/Vol] 100 mmol/L Normal 98-109 [facility] Comment on above: Performed By: #### C REBECCA JUDD HA1C, BMP #### [facility] ([id number]) [address], [address] [place] [address] CO2 [Moles/Vol] 33 mmol/L High 22-32 [facility] Comment on above: Performed By: #### C BINTA PINR HA1C, BMP #### [facility] ([id number]) [address], [address] [place] [address] Creatinine [Mass/Vol] 0.86 mg/dL Normal 0.60-1.30 [facility] Comment on above: Result Comment: METH OD TRACEABLE TO IDMS STANDARD Performed By: #### C REBECCA JUDD HA1C, BMP #### [facility] ([id number]) [address], [address] [place] [address] GFR/1.73 sq M.predicted among non-blacks MDRD (S/P/Bld) [Vol rate/Area] 88 mL/min/{1.73_m2} Normal >59 [facility] Comment on above: Result Comment: Reported eGFR is based on the CKD-EPI 2020 equation that does not use a race coefficient. Performed By: #### C BINTA PINR HAKarthikeyan, BMP #### [facility] ([id number]) [address], [address] [place] [address] Glucose [Mass/Vol] 160 mg/dL High 65-99 [facility] Comment on above: Performed By: #### C BINTA PINRoxie HAKarthikeyan, BMP #### [facility] ([id number]) [address], [address] [place] [address] Potassium [Moles/Vol] 4.2 mmol/L Normal 3.5-5.0 [facility] Comment on above: Performed By: #### C BCA, PINR, HA1C, BMP #### [facility] ([id number]) [address] [address] [place] [address] Sodium [Moles/Vol] 141 mmol/L Normal 134-146 [facility] Comment on above: Performed By: #### C BCA, PINR, HA1C, BMP #### [facility] ([id number]) [address] [address] Urea nitrogen [Mass/Vol] 16 mg/dL Normal 5-27 [facility] Comment on above: Performed By: #### C BINTA, PINR, HA1C, BMP #### [facility] ([id number]) [address] [address] CBC AND AUTO DIFFon 11-21-19 24 ABSOLUTE BASOPHIL 0.1 X10E9/L Normal 0.0-0.2 [facility] Comment on above: Performed By: #### C BCA, PINR, HA1C, BMP #### [facility] ([id number]) [address] [address] ABSOLUTE NEUTROPHIL 4.8 X10E9/L Normal 1.5-6.6 [facility] Comment on above: Performed By: #### C BCA, PINR, HA1C, BMP #### [facility] ([id number]) [address] [address] Basophils/100 WBC (Bld) 1.1 % Normal [facility] Comment on above: Performed By: #### C BCA, PINR, HA1C, BMP #### [facility] ([id number]) [address] [address] Eosinophils (Bld) [#/Vol] 0.2 10*3/uL Normal 0.0-0.4 [facility] Comment on above: Performed By: #### C BCA, PINR, HA1C, BMP #### [facility] ([id number]) [address] [address] [place] [address] Eosinophils/100 WBC (Bld) 3.1 % Normal [facility] Comment on above: Performed By: #### C BINTA, PINR, HA1C, BMP #### [facility] ([id number]) [address] [address] [place] [address] Erythrocyte distribution width (RBC) [Ratio] 17.6 % High 11.5-15.0 [facility] Comment on above: Performed By: #### C BINTA PINR, HA1C, BMP #### [facility] ([id number]) [address] [address] [place] [address] Hematocrit (Bld) [Volume fraction] 40.4 % Normal 39-49 [facility] Comment on above: Performed By: #### C BCA, PINR, HA1C, BMP #### [facility] ([id number]) [address] [address] [place] [address] Hemoglobin (Bld) [Mass/Vol] 13.3 g/dL Normal 13.0-17.0 [facility] Comment on above: Performed By: #### C BINTA, PINR, HA1C, BMP #### [facility] ([id number]) [address] [address] [place] [address] Lymphocytes (Bld) [#/Vol] 1.8 10*3/uL Normal 1.0-3.5 [facility] Comment on above: Performed By: #### C BINTA, PINR, HA1C, BMP #### [facility] ([id number]) [address] [address] Lymphocytes/100 WBC (Bld) 24.3 % Normal [facility] Comment on above: Performed By: #### C BCA, PINR, HA1C, BMP #### [facility] ([id number]) [address] [place] [address] MCH (RBC) [Entitic mass] 27.8 pg Normal 27-34 [facility] Comment on above: Performed By: #### C BCA, PINR, HA1C, BMP #### [facility] ([id number]) [address], [address] [place] [address] MCHC (RBC) [Mass/Vol] 32.8 g/dL Normal 32-36 [facility] Comment on above: Performed By: #### C BCA, PINR, HA1C, BMP #### [facility] ([id number]) [address], [facility] [address] [place] [address] MCV (RBC) [Entitic vol] 85 fL Normal 80-100 [facility] Comment on above: Performed By: #### C BCA, PINR, HA1C, BMP #### [facility] ([id number]) [address], [address] [place] [address] Monocytes (Bld) [#/Vol] 0.5 10*3/uL Normal 0-0.9 [facility] Comment on above: Performed By: #### C BCA, PINR, HA1C, BMP #### [facility] ([id number]) [address] [place] [address] Monocytes/100 WBC (Bld) 7.1 % Normal [facility] Comment on above: Performed By: #### C BCA, PINR, HA1C, BMP #### [facility] ([id number]) [address], [address] [place] [address] Neutrophils/100 WBC (Bld) 64.4 % Normal [facility] Comment on above: Performed By: #### C BCA, PINR, HA1C, BMP #### [facility] ([id number]) [address], [address] [place] [address] Platelet mean volume (Bld) [Entitic vol] 8.5 fL Normal 7-12 [facility] Comment on above: Performed By: #### C BINTA, PINR, HA1C, BMP #### [facility] ([id number]) [address], [address] [place] [address] Platelets (Bld) [#/Vol] 224 10*3/uL Normal 150-450 [facility] Comment on above: Performed By: #### C BCA, PINR, HA1C, BMP #### [facility] ([id number]) [address], [facility] [address] [place] [address] RBC COUNT 4.78 X10E12/L Normal 4.10-5.70 [facility] Comment on above: Performed By: #### C BCA, PINR, HA1C, BMP #### [facility] ([id number]) [address], [address] [address] WBC (Bld) [#/Vol] 7.4 10*3/uL Normal 4.0-11.0 [facility] Comment on above: Performed By: #### C BCA, PINR, HA1C, BMP #### [facility] ([id number]) [address], [address] [place] [address] HGB A1C (GLYCO-HGB)on 2023 Glucose [Mass/Vol] 192 mg/dL Normal [facility] Comment on above: Performed By: #### C BCA, PINR, HA1C, BMP #### [facility] ([id number]) [address], [address] [place] [address] HbA1c (Bld) [Mass fraction] 8.3 % High 4.4-5.6 [facility] Comment on above: Result Comment: NOTE ADA Guidelines Result HgbA1c Normal : less than 5.7 % Prediabetes : 5.7 % to 6.4 % Diabetes : > 6.4 % Use with caution in patients with abnormal hemoglobin variants as the half-life of red blood cells and in vivo glycation rates are affected. Performed By: #### C REBECCA JUDD HA1C, BMP #### [facility] ([id number]) [address], [address] [place] [address] MRSA PCR NASALon 11-21-2023 MRSA DNA LEO+probe Ql (Unsp spec) Negative Normal NEG [facility] Comment on above: Performed By: #### 3 [id number] #### [facility] ([id number]) [address], [address] [place] [address] PROTIME AND INRon 11-21-2023 INR Coag (PPP) [Relative time] 1.0 {INR} Normal 0.8-1.1 [facility] Comment on above: Performed By: #### C REBECCA JUDD HA1C, BMP #### [facility] ([id number]) [address] [place] [address] PT Coag (PPP) [Time] 11.6 s Normal 9.8-13.2 [facility] Comment on above: Performed By: #### C REBECCA JUDD HA1C, BMP #### [facility] ([id number]) [address] [place] [address] URINALYSISon 11-21-2023 Bilirubin Ql (U) Negative Normal NEG [facility] Comment on above: Performed By: #### U A #### [facility] ([id number]) [address] [address] [place] [address] BLOOD/HGB Negative Normal NEG [facility] Comment on above: Performed By: #### U A #### [facility] ([id number]) [address], [address] [place] [address] Color (U) YELLOW Normal YELLOW [facility] Comment on above: Performed By: #### U A #### [facility] ([id number]) [address] [place] [address] Glucose Ql (U) 100 mg/dL Abnormal NEG [facility] Comment on above: Performed By: #### U A #### [facility] ([id number]) [address], [address] [place] [address] Hyaline casts LM Ql (Urine sed) 3 /lpf High 0-2 [facility] Comment on above: Performed By: #### U A #### [facility] ([id number]) [address] [facility] [place] [address] Ketones Ql (U) Negative Normal NEG [facility] Comment on above: Performed By: #### U A #### [facility] ([id number]) [address], [address] [place] [address] Leukocyte esterase Test strip Ql (U) Trace Abnormal NEG [facility] Comment on above: Performed By: #### U A #### [facility] ([id number]) [address], [address] [place] [address] MUCOUS PRESENT Abnormal NONE [facility] Comment on above: Performed By: #### U A #### [facility] ([id number]) [address] [place] [address] Nitrite Ql (U) Negative Normal NEG [facility] Comment on above: Performed By: #### U A #### [facility] ([id number]) [address] [place] [address] pH (U) 6.5 [pH] Normal 5.0-8.5 [facility] Comment on above: Performed By: #### U A #### [facility] ([id number]) [address] [address] [place] [address] Protein Ql (U) 30 mg/dL Abnormal NEG [facility] Comment on above: Performed By: #### U A #### [facility] ([id number]) [address] [place] [address] [address] [place] [address] R.B.CELLS 1 /hpf Normal 0-5 [facility] Comment on above: Performed By: #### U A #### [facility] ([id number]) [address] [place] [address] [address] [place] [address] Specific gravity (U) [Rel density] 1.026 Normal 1.003-1.035 [facility] Comment on above: Performed By: #### U A #### [facility] ([id number]) [address] [place] [address] SQUAMOUS EPITHELIUM <1 Normal 0-5 [facility] Comment on above: Performed By: #### U A #### [facility] ([id number]) [address] [place] [address] TURBIDITY CLEAR Normal CLEAR [facility] Comment on above: Performed By: #### U A #### [facility] ([id number]) [address] [place] [address] [address] [place] [address] Urobilinogen (U) [Mass/Vol] mg/dL Normal <1.1 [facility] Comment on above: Performed By: #### U A #### [facility] ([id number]) [address] [place] [address] [address] [place] [address] W.B.CELLS 11 /hpf High 0-5 [facility] Comment on above: Performed By: #### U A #### [facility] ([id number]) [address] [place] [address] [address] [place] [address] URINE CULTUREon 11-21-2023 Bacteria identified Cx Nom (U) CULTURE RESULTS 10-50,000 ORGANISMS/mL NORMAL UROGENITAL AZALEA Normal [facility] Comment on above: Performed By: #### 6 30-4 #### [facility] ([id number]) [address] [facility] [place] [address] XR CHEST 2 VWSon 11-04-2023 XR CHEST 2 VWS XR CHEST 2 VWS History: Preop. Cervical spondylosis. Cervical myelopathy. Exam/Technique: PA and lateral chest Comparison: None Findings: There is no evidence of active pulmonary or pleural disease. Cardiac and mediastinal contours are within normal limits. IMPRESSION: No evidence of active pulmonary disease demonstrated. Finalized by Ramone Biggs MD on 11/04/2023 9:08 AM Normal [facility] XR SPINE LUMB BENDING ONLY 2 -3 [...] Patricia Gonzalez MD on 09/11/2023 9:23 AM Normal [facility] 36on 08-18-2023 36 Regarding stress cristian t [...] VM. Faxed this to Dr. Loco's office. Normal [facility] Follow-Upon 06-21-2023 Follow-Up [id number] David Chung 1945 M Date Provider Department Center 06/21/2023 271-KIESHA CASTILLO CARD [facility] No family history on file Level of Service:23365 ID OFFICE/OUTPATIENT ESTABLISHED MOD MDM 30 MIN Normal [facility] Covid-19 PCR (CVDTB)on 03-17 SARS-CoV-2 (COVID-19) RNA LEO+probe Ql (Unsp spec) Not detected Normal NOT DETECTED [facility] Comment on above: Result Comment: When diagnostic testing is negative, the possibility of a false negative should be considered in the context of a patient's recent exposures and the presence of clinical signs and symptoms consistent with SARS-CoV-2. This test is not yet approved or cleared by the [place] Food and Drug Administration (FDA). This test was developed by [employer], [place], [place]. The performance characteristics of this test were validated by [facility]. The results are not intended to be used as the sole means for clinical diagnosis or patient management decisions. [facility] is authorized under Clinical Laboratory Improvement [...] for this test is supported by the [employer] of Health and Human Service's declaration that [...] used). Performed By: #### C VDTBH #### [facility] [address] [place], [place] [address] Dr. Kelly Montoya CBC AUTO DIFFon 11-13-2020 BASO # 0.1 103/ul Normal 0.0-0.1 [facility] Comment on above: Performed By: #### C BC #### [facility] [address] [place] [id number] [place] Basophils/100 WBC (Bld) 1.3 % Normal 0.2-2.0 [facility] Comment on above: Performed By: #### C BC #### [facility] [address] [place], [place] [address] [place] EO # 0.4 103/ul Normal 0.0-0.7 [facility] Comment on above: Performed By: #### C BC #### [facility] [address] [place], [place] [address] [place] Eosinophils/100 WBC (Bld) 5.0 % Normal 0.9-7.0 [facility] Comment on above: Performed By: #### C BC #### [facility] [address] [place], [place] [address] [place] Erythrocyte distribution width (RBC) [Ratio] 13.6 % Normal 11.0-15.0 [facility] Comment on above: Performed By: #### C BC #### [facility] [address] [place], [place] [address] [place] Hematocrit (Bld) [Volume fraction] 47.6 % Normal 42.0-54.0 [facility] Comment on above: Performed By: #### C BC #### [facility] [address] [place], [place] [address] [place] Hemoglobin (Bld) [Mass/Vol] 15.4 g/dL Normal 14.0-18.0 [facility] Comment on above: Performed By: #### C BC #### [facility] [address] [place], [place] [address] [place] IG # 0.04 10e3/ul Critically high 0.00-0.03 [facility] Comment on above: Performed By: #### C BC #### [facility] [address] [id number] [place] IG % 0.6 % Critically high 0.0-0.5 [facility] Comment on above: Performed By: #### C BC #### [facility] [address] [place], [place] [address] [place] LYMPH # 2.0 103/ul Normal 1.2-3.8 [facility] Comment on above: Performed By: #### C BC #### [facility] [address] [place], [place] [address] Cortezvioleta Ramirez Lymphocytes/100 WBC (Bld) 27.9 % Normal 20.5-60.0 [facility] Comment on above: Performed By: #### C BC #### [facility] [address] [place], [place] [address] Cortezvioleta Ramirez MANUAL DIFF REQ NO Normal [facility] Comment on above: Performed By: #### C BC #### [facility] [address] [place], [place] [address] [place] MCH (RBC) [Entitic mass] 30.3 pg Normal 25.9-34.0 [facility] Comment on above: Performed By: #### C BC #### [facility] [address] [place], [place] [address] [place]ezvioleta Ramirez MCHC (RBC) [Mass/Vol] 32.4 g/dL Normal 29.9-35.2 [facility] Comment on above: Performed By: #### C BC #### [facility] [address] [place] [address] [place] MCV (RBC) [Entitic vol] 93.5 fL Normal 80.0-94.0 [facility] Comment on above: Performed By: #### C BC #### [facility] [address] [place], [place] [address] [place] MONO # 0.5 103/ul Normal 0.3-0.8 [facility] Comment on above: Performed By: #### C BC #### [facility] [address] [place] [address] [place] Monocytes/100 WBC (Bld) 7.4 % Normal 1.7-12.0 [facility] Comment on above: Performed By: #### C BC #### [facility] [address] [place], [place] [address] [place] Michaelen NEUT # 4.1 103/ul Normal 1.4-6.5 [facility] Comment on above: Performed By: #### C BC #### [facility] [address] [place], [place] [address] [place] Neutrophils/100 WBC (Bld) 57.8 % Normal 43.0-75.0 [facility] Comment on above: Performed By: #### C BC #### [facility] [address] [place], [place] [address] Cortezvioleta Ramirez Platelet mean volume (Bld) [Entitic vol] 11.1 fL Normal 9.5-13.5 [facility] Comment on above: Performed By: #### C BC #### [facility] [address] [place], [place] [address] [place] PLT 167 103/ul Normal 150-450 [facility] Comment on above: Performed By: #### C BC #### [facility] [address] [place], [place] [address] [place] RBC 5.09 106/ul Normal 4.70-6.10 [facility] Comment on above: Performed By: #### C BC #### [facility] [address] [place], [place] [address] [place] WBC 7.1 103/ul Normal 4.0-11.0 [facility] Comment on above: Performed By: #### C BC #### [facility] [address] [place], [place] [address] [place] Vital Signs Date Time Vital Sign Value Performing Clinician Facility 03-28-2024 09:58-0500 Body height 185.4 cm Kevin Patel DPM Work Phone: [facility] 03-28-2024 09:58-0500 Body mass index (BMI) [Ratio] 19.79 kg/m2 Kevin COOKM Work Phone: [facility] 03-28-2024 09:58-0500 Body weight 68.04 kg Kevin Patel DPM Work Phone: [facility] 03-28-2024 09:58-0500 Respiratory rate 16 /min Kevin Patel DPM Work Phone: [facility] 03-06-2024 13:21-0500 Body height 182.9 cm Wenceslao Freitas MD Work Phone: [facility] 03-06-2024 13:21-0500 Body mass index (BMI) [Ratio] 21.02 kg/m2 Wenceslao Freitas MD Work Phone: [facility] 03-06-2024 13:21-0500 Body weight 70.31 kg Wenceslao Freitas MD Work Phone: [facility] 03-06-2024 13:21-0500 Diastolic blood pressure 66 mm[Hg] Wenceslao Freitas MD Work Phone: [facility] 03-06-2024 13:21-0500 Heart rate 75 /min Wenceslao Freitas MD Work Phone: [facility] 03-06-2024 13:21-0500 Systolic blood pressure 137 mm[Hg] Wenceslao Freitas MD Work Phone: [facility] 01-25-2024 10:25-0400 Body height 185.4 cm Kirk Cardona MD Work Phone: [facility] 01-25-2024 10:25-0400 Body mass index (BMI) [Ratio] 19.79 kg/m2 Kirk Cardona MD Work Phone: [facility] 01-25-2024 10:25-0400 Body weight 68.04 kg Kirk Cardona MD Work Phone: [facility] 01-25-2024 10:25-0400 Diastolic blood pressure 82 mm[Hg] Kirk Cardona MD Work Phone: [facility] 01-25-2024 10:25-0400 Heart rate 64 /min Kirk Cardona MD Work Phone: [facility] 01-25-2024 10:25-0400 SaO2% (BldA) [Mass fraction] 95 % Kirk Cardona MD Work Phone: [facility] 01-25-2024 10:25-0400 Systolic blood pressure 134 mm[Hg] Kirk Cardona MD Work Phone: [facility] 01-18-2024 09:35-0400 Body height 182.9 cm Kevin Patel DPM Work Phone: [facility] 01-18-2024 09:35-0400 Body mass index (BMI) [Ratio] 20.34 kg/m2 Kevin Patel DPM Work Phone: [facility] 01-18-2024 09:35-0400 Body weight 68.04 kg Kevin Patel DPM Work Phone: [facility] 01-18-2024 09:35-0400 Respiratory rate 18 /min Kevin Patel DPM Work Phone: [facility] 01-17-2024 12:36-0400 Body height 182.9 cm Wenceslao Freitas MD Work Phone: [facility] 01-17-2024 12:36-0400 Body mass index (BMI) [Ratio] 19.8 kg/m2 Wenceslao Freitas MD Work Phone: [facility] 01-17-2024 12:36-0400 Body weight 66.22 kg Wenceslao Freitas MD Work Phone: [facility] 12-25-2023 10:54-0400 Body height 185.4 cm Kirk Cardona MD Work Phone: [facility] 12-25-2023 10:54-0400 Body mass index (BMI) [Ratio] 18.87 kg/m2 Kirk Cardona MD Work Phone: [facility] 12-25-2023 10:54-0400 Body weight 64.86 kg Kirk Cardona MD Work Phone: [facility] 12-25-2023 10:54-0400 Diastolic blood pressure 74 mm[Hg] Kirk Cardona MD Work Phone: [facility] 12-25-2023 10:54-0400 Heart rate 81 /min Kirk Cardona MD Work Phone: [facility] 12-25-2023 10:54-0400 SaO2% (BldA) [Mass fraction] 96 % Kirk Cardona MD Work Phone: [facility] 12-25-2023 10:54-0400 Systolic blood pressure 130 mm[Hg] Kirk Cardona MD Work Phone: [facility] 12-11-2023 13:21-0400 Body mass index (BMI) [Ratio] 19.16 kg/m2 Kirk Cardona MD Work Phone: [facility] 12-11-2023 13:21-0400 Body weight 65.86 kg Kirk Cardona MD Work Phone: [facility] 12-11-2023 13:21-0400 Diastolic blood pressure 65 mm[Hg] Kirk Cardona MD Work Phone: [facility] 12-11-2023 13:21-0400 Heart rate 47 /min Kirk Cardona MD Work Phone: [facility] 12-11-2023 13:21-0400 Respiratory rate 16 /min Kirk Cardona MD Work Phone: [facility] 12-11-2023 13:21-0400 SaO2% (BldA) [Mass fraction] 98 % Kirk Cardona MD Work Phone: [facility] 12-11-2023 13:21-0400 Systolic blood pressure 125 mm[Hg] Kirk Cardona MD Work Phone: [facility] Encounters Encounter Date Encounter Type Care Provider Facility Start: 03-28-2024 End: 03-28-2024 Bamboo flowsheet Kevin Patel DPDel Work Phone: [facility] Start: 03-28-2024 End: 03-28-2024 Bamboo flowsheet Kevin Patel DPM Work Phone: [facility] Start: 03-28-2024 End: 03-28-2024 ambulatory KEVIN PATEL Not Available Start: 03-28-2024 End: 03-28-2024 Office outpatient visit 15 minutes Kevin Patel DPM Work Phone: [facility] Comment on above: Xerosis cutis (Prima 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); Diabetes mellitus due to underlying condition with diabetic polyneuropathy, unspecified whether assisted insulin use (CMS/HCC); Pain due to onychomycosis of toenails of both feet Start: 03-06-2024 End: 03-06-2024 Office outpatient visit 10 minutes Wenceslao Freitas MD Work Phone: [facility] Comment on above: Spondylosis without myelopathy or radiculopathy, cervical region (Primary Dx) Start: 03-06-2024 End: 03-06-2024 ambulatory WENCESLAO FREITAS [facility] Start: 01-25-2024 End: 01-25-2024 Bamboo flowsheet Kirk Cardona MD Work Phone: [facility] Start: 01-25-2024 End: 01-25-2024 Bamboo flowsheet Kirk Cardona MD Work Phone: [facility] Start: 01-25-2024 End: 01-25-2024 Office outpatient visit 25 minutes Kirk Cardona MD Work Phone: [facility] Comment on above: Type 2 diabetes elyse itus without complication, without long- term current use of insulin (CMS/HCC) (Primary Dx); Coronary artery disease involving cheesh-na coronary artery of cheesh-na heart without angina pectoris (CMS/HCC); Benign essential hypertension (CMS/HCC); Supraventricular tachycardia (CMS/HCC); Chronic systolic heart failure (CMS/HCC); Moderate mixed hyperlipidemia not requiring statin therapy (CMS/HCC) Start: 01-25-2024 End: 01-25-2024 ambulatory KIRK CARDONA Not Available Start: 01-18-2024 End: 01-18-2024 Bamboo flowsheet Kevin Patel DPM Work Phone: [facility] Start: 01-18-2024 End: 01-18-2024 Bamboo flowsheet Kevin Patel DPM Work Phone: [facility] Start: 01-18-2024 End: 01-18-2024 ambulatory KEVIN PATEL Not Available Start: 01-18-2024 End: 01-18-2024 Office outpatient new 30 minutes Kevin Patel DPM Work Phone: [facility] Comment on above: Xerosis cutis (Prima ry Dx); Diabetes mellitus due to underlying condition with diabetic polyneuropathy, 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 (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); Pain due to onychomycosis of toenails of both feet Start: 01-17-2024 End: 01-17-2024 Postop follow up visit related to original px Wenceslao Freitas MD Work Phone: [facility] Comment on above: Cervical myelopathy (CMS-HCC) (Primary Dx); Low back pain, unspecified back pain laterality, unspecified chronicity, unspecified whether sciatica present Start: 01-17-2024 End: 01-17-2024 ambulatory WENCESLAO FREITAS [facility] Start: 12-25-2023 End: 12-25-2023 Bamboo flowsheet Kirk Cardona MD Work Phone: [facility] Start: 12-25-2023 End: 12-25-2023 Bamboo flowsheet Kirk Cardona MD Work Phone: [facility] Start: 12-25-2023 End: 12-25-2023 Office outpatient visit 25 minutes Kirk Cardona MD Work Phone: [facility] Comment on above: Cervical stenosis of spine (Primary Dx); Benign essential hypertension (CMS/HCC); SANTY (acute kidney injury) (CMS/HCC); Chronic systolic heart failure (CMS/HCC) Start: 12-25-2023 End: 12-25-2023 ambulatory KIRK B CARDONA Not Available Start: 12-11-2023 End: 12-11-2023 Bamboo flowsheet Kirk Cardona MD Work Phone: [facility] Start: 12-11-2023 End: 12-11-2023 Bamboo flowsheet Kirk Cardona MD Work Phone: [facility] Start: 12-11-2023 End: 12-11-2023 Office outpatient visit 25 minutes Kirk Cardona MD Work Phone: [facility] Comment on above: Cervical stenosis of spine (Primary Dx); Low back pain, unspecified back pain laterality, unspecified chronicity, unspecified whether sciatica present; Chronic systolic heart failure (CMS/HCC); Bradycardia Start: 12-11-2023 End: 12-11-2023 ambulatory KIRK CARDONA Not Available Start: 12-07-2023 End: 12-07-2023 Evaluation and management of inpatient KIRK Galarza [facility] Start: 12-05-2023 End: 12-07-2023 Evaluation and management of inpatient [facility] Start: 12-05-2023 End: 12-07-2023 Evaluation and management of inpatient [facility] Start: 12-05-2023 End: 12-06-2023 Evaluation and management of inpatient [facility] Start: 11-21-2023 End: 11-21-2023 ambulatory [facility] Start: 11-21-2023 Encounter for other preprocedural examination [facility] Start: 11-02-2023 End: 11-02-2023 ambulatory [facility] Start: 10-25-2023 End: 10-25-2023 ambulatory [facility] Start: 09-27-2023 ambulatory [facility] Start: 09-08-2023 End: 09-18-2023 ambulatory [facility] Start: 08-24-2023 ambulatory [facility] Start: 08-24-2023 End: 08-24-2023 ambulatory KIRK CARDONA Not Available Start: 07-27-2023 End: 07-27-2023 ambulatory RAYMUNDO GARCIA [facility] Start: 07-18-2023 End: 07-18-2023 ambulatory RADHA ALEGRE Not Available Start: 07-06-2023 End: 07-06-2023 ambulatory KIRK CARDONA Not Available Start: 06-27-2023 End: 06-27-2023 ambulatory ASHLEY CHAO Not Available Start: 06-21-2023 End: 06-21-2023 ambulatory [facility] Start: 06-21-2023 End: 06-21-2023 Encounter for other preprocedural examination [facility] Start: 06-06-2023 End: 06-06-2023 ambulatory MAXI LOCO Not Available Start: 05-23-2023 End: 05-23-2023 ambulatory MAXI LOCO Not Available Start: 05-09-2023 End: 05-09-2023 ambulatory MAXI LOCO Not Available Start: 05-08-2023 End: 05-08-2023 ambulatory KIRK CARDONA Not Available Start: 04-25-2023 End: 04-25-2023 ambulatory MAXI LOCO Not Available Start: 07-07-2021 End: 07-07-[address] NIELS TOWNSEND Facility:[facility] Start: 03-29-2021 End: 03-29-[address] NIELS TOWNSEND Facility:[facility] Start: 02-09-2021 End: 02-09-2021 ambulatory SUMMER PERKINS Facility:[facility] Start: 11-13-2020 End: 11-14-[address] NIELS TOWNSEND Facility:[facility] Start: 07-14-2020 End: 07-15-[address] MARQUEZ LISTED REQUEST Facility:[facility] Procedures Date Procedure Procedure Detail Performing Clinician Start: 12-05-2023 Adult depression screening assessment Wenceslao Freitas MD Work Phone: Start: 10-25-2023 Follow-up visit Follow-up WENCESLAO FREITAS Plan of Treatment Date Care Activity Detail Author Start: 01-16-2025 Adult BMI Screening Adult BMI Screen ing [facility] Start: 12-04-2024 Depression Screening Depression Scre ening [facility] Start: 12-04-2024 Tobacco Screening Tobacco Screening [facility] Start: 08-23-2024 Urine screening for protein Diabetes: Urine Protein Screening [facility] Start: 07-06-2024 Urine screening for protein Diabetes: Urine Protein Screening [facility] Start: 07-05-2024 Medicare Annual Wellness (AWV) Medicare Annual Wellness (AWV) [facility] Start: 06-06-2024 End: 06-06-2024 Patient encounter procedure 06/06/2024 9:30 AM EST Procedure Visit [facility] [address] [facility] [address] [place] [address] Kevin Patel, DPDel [address] [address] [facility] Start: 05-10-2024 End: 05-10-2024 Patient encounter procedure 05/10/2024 11:30 AM EST Office Visit [facility] [address] [facility] [address] [place] [address] Kirk Cardona MD [address] [facility] [address] [place] [address] [facility] Start: 03-28-2024 End: 03-28-2024 Patient encounter procedure 03/28/2024 9:30 AM EST Procedure Visit [facility] [address] [facility] [facility] [address] [place] [address] Kevin Patel DPDel [address] [address] [facility] Start: 03-06-2024 End: 03-06-2024 Patient encounter procedure 03/06/2024 1:30 PM EST Office Visit [facility] [address] [place] [phone] Wenceslao Freitas MD [address] [place] [address] [id number] [facility] Start: 02-21-2024 Hemoglobin A1c measurement Diabetes: Hemoglobin A1C [facility] Start: 02-12-2024 End: 02-12-2024 Patient encounter procedure 02/12/2024 1:15 PM EDT Office Visit [facility] [address] [facility] [address] [place] [address] Kirk Cardona MD [address] [place] [address] [place] [address] [facility] Start: 01-25-2024 End: 01-25-2024 Patient encounter procedure [facility] Comment on above: Arrived Start: 12-25-2023 End: 12-25-2023 Patient encounter procedure 12/25/2023 11:00 AM EDT Office Visit [facility] [address] [facility] [address] [place] [address] Kirk Cardona MD [address] [facility] [address] [place] [address] Arrived [facility] Comment on above: Arrived Start: 12-17-2023 COVID-19 Vaccine ( season) COVID-19 Vaccine ( season) [facility] Start: 12-17-2023 COVID-19 Vaccine ( season) COVID-19 Vaccine ( season) [facility] Start: 12-17-2023 Influenza vaccination [facility] Start: 12-11-2023 End: 12-11-2023 Patient encounter procedure 12/11/2023 1:15 PM EDT Office Visit [facility] [address] [facility] [address] [place] [address] Kirk Cardona MD [address] [facility] [address] [place] [address] Arrived [facility] Comment on above: Arrived Start: 05-18-2016 Pneumococcal Vaccine : 65+ Years (3 of 3 - PPSV23 or PCV20) Pneumococcal Vaccine: 65+ Years (3 of 3 - PPSV23 or PCV20) [facility] Start: 08-25-2008 Fall Risk Screening Fall Risk Screen ing [facility] Start: 08-25-1962 DTaP,Tdap and Td Vaccines (1 - Tdap) DTaP,Tdap and Td Vaccines (1 - Tdap) [facility] Start: 08-25-1953 Glaucoma screening Diabetes: R etinopathy Screening [facility] Start: 1945 Medicare Annual Wellness Visit Medicare Annual Wellness Visit [facility] Start: 1945 Tobacco Counseling Tobacco Counselin g [facility] Immunizations Immunization Date Immunization Notes Care Provider Fa cility 06-30-2022 zoster vaccine recombinant Kirk Cardona MD Work Phone: [facility] 04-17-2022 influenza virus vacc ine, unspecified formulation Kirk Cardona MD Work Phone: [facility] 12-09-2021 zoster vaccine recombinant Kirk Cardona MD Work Phone: [facility] 03-18-2021 Influenza, Seasonal, Quadrivalent, Adjuvanted Kirk Cardona MD Work Phone: [facility] 02-09-2021 Pfizer Purple Cap SARS-CoV-2 Vaccination Kirk Cardona MD Work Phone: [facility] 12-16-2020 influenza virus vacc ine, unspecified formulation Kirk Cardona MD Work Phone: [facility] 07-14-2020 Pfizer Purple Cap SARS-CoV-2 Vaccination Kirk Cardona MD Work Phone: [facility] 06-22-2020 Pfizer Purple Cap SARS-CoV-2 Vaccination Kirk Cardona MD Work Phone: [facility] 02-09-2018 Seasonal trivalent influenza vaccine, adjuvanted, preservative free Kirk Cardona MD Work Phone: [facility] 02-23-2017 influenza, high dose seasonal, preservative-free Kirk Cardona MD Work Phone: [facility] 01-16-2016 influenza virus vacc ine, unspecified formulation Kirk Cardona MD Work Phone: [facility] 05-18-2015 pneumococcal conjuga te vaccine, 13 valent Kirk Cardona MD Work Phone: [facility] 03-25-2015 influenza, seasonal, injectable, preservative free Wenceslao Freitas MD Work Phone: [facility] 01-24-2015 influenza virus vacc ine, unspecified formulation Kirk Cardona MD Work Phone: [facility] 02-26-2014 influenza virus vacc ine, unspecified formulation Kirk Cardona MD Work Phone: [facility] 02-15-2011 influenza virus vacc ine, unspecified formulation Kirk Cardona MD Work Phone: [facility] 02-15-2010 influenza virus vacc ine, unspecified formulation Kirk Cardona MD Work Phone: [facility] 02-08-2010 influenza virus vacc ine, unspecified formulation Kirk Cardona MD Work Phone: [facility] 02-11-2009 influenza virus vacc ine, unspecified formulation Kirk Cardona MD Work Phone: [facility] 01-16-2008 influenza virus vacc ine, unspecified formulation Kirk Cardona MD Work Phone: [facility] 02-14-2007 influenza virus vacc ine, whole virus Wenceslao Freitas MD Work Phone: [facility] 01-15-2007 pneumococcal polysaccharide vaccine, 23 valent Kirk Cardona MD Work Phone: [facility] 01-15-2007 pneumococcal vaccine , unspecified formulation Kirk Cardona MD Work Phone: [facility] Payers Date Payer Category Payer Blue Cross Blue Shield [id number] [id number] 2016 Blue Cross Blue Shie cecelia [place] [id number] 2016 Unknown [id number] [id number] .[id number] 2008 Medicare [id number] [id number] .[id number] 2008 Medicare [id number] 1959 Medicare [id number] 1959 Self-pay 1959 Unknown [id number] 1959 Unknown [id number] 1943 Unknown [id number] 2.16.840.1.234983.3.579 .2.59 1943 Unknown [id number] 2.840.1.392691.3.579 .2.59 1943 Unknown [id number] 2.840.1.098233.3.579 .2.593 1943 Unknown [id number] .840.1.960385.3.579 .2.59 1943 Unknown [id number] 2.16840.1.428460.3.579 .2.59 1943 Unknown [id number] 2.16840.1.988181.3.579 .2.128 1943 Unknown [id number] 2.16.840.1.254666.3.579 .2.128 1943 Unknown [id number] 2.16.840.1.648491.3.579 .2.128 1943 Unknown [id number] 2.16.840.1.008330.3.579 .2.1285 1943 Unknown [id number] 2.16.840.1.570452.3.579 .2.1285 1943 Unknown [id number] 2.16.840.1.378548.3.579 .2.1285 1943 Unknown [id number] 2.16.840.1.593957.3.579 .2.1285 1943 Unknown [id number] 2.16.840.1.923239.3.579 .2.1285 1943 Unknown [id number] 2..840.1.942039.3.579 .2.1285 1943 Unknown [id number] 2..840.1.883632.3.579 .2.1285 1943 Unknown [id number] 2.840.1.322703.3.579 .2.1285 1943 Unknown [id number] 2.840.1.512965.3.579 .2.1285 1943 Unknown [id number] 2.840.1.214822.3.579 .2.1285 1943 Unknown [id number] 2.840.1.177513.3.579 .2.1285 1943 Unknown [id number] 2.840.1.659000.3.579 .2.1285 1943 Unknown [id number] 2.16.840.1.559202.3.579 .2.1285 1943 Unknown [id number] 2.16.840.1.968465.3.579 .2.1258 1943 Unknown [id number] 2.16.840.1.688539.3.579 .2.1258 1943 Unknown [id number] 2.16.840.1.070689.3.579 .2.125 1943 Unknown [id number] 2.16.840.1.322352.3.579 .2.1258 1943 Unknown [id number] 2.16.840.1.553206.3.579 .2.1258 1943 Unknown [id number] 2.16.840.1.097292.3.579 .2.1258 1943 Unknown [id number] 2.16.840.1.606557.3.579 .2.1258 1943 Unknown [id number] 2.16.840.1.430509.3.579 .2.1258 1943 Unknown [id number] 2.16.840.1.320386.3.579 .2.1258 1943 Unknown [id number] 2.16.840.1.732435.3.579 .2.1258 1943 Unknown [id number] 2.16.840.1.042046.3.579 .2.1258 1943 Unknown [id number] 2.16.840.1.734154.3.579 .2.1258 1943 Unknown [id number] 2.16.840.1.473786.3.579 .2.1258 1943 Unknown [id number] 2.16.840.1.922735.3.579 .2.1258 1943 Unknown [id number] 2.16.840.1.713166.3.579 .2.1258 1943 Unknown [id number] 2.16.840.1.519139.3.579 .2.1258 1943 Unknown [id number] 2.16.840.1.920486.3.579 .2.1259 Unknown [id number] 2.16.840.1.467449.3.579 .2.593 Social History Date Type Detail Facility Start: 04-17-1964 End: 07-27-2023 Tobacco smoking status NHIS Smokes tobacco daily [facility] Start: 04-17-1964 History of tobacco use Cigarette Smo ker [facility] Start: 07-06-2023 End: 07-27-2023 Cigarettes smoked current (pack per day) - Reported 0.5 [facility] Start: 01-04-2023 End: 07-27-2023 Tobacco use and exposure Smokeless tobacco non-user [facility] Start: 01-17-2024 Alcoholic beverage intake Current drinker of alcohol (finding) [facility] Start: 07-06-2023 End: 12-05-2023 [facility] [employer] [facility] [employer] Has the [employer], or [employer] threatened to shut off services in your home in past 12Mo No [facility] How often to you hav e a drink containing alcohol? Monthly or less [facility] How many standard drinks containing alcohol do you have on a typical day? 1 or 2 [facility] How often do you hav e 6 or more drinks on 1 occasion? Never [facility] Adolescent depressio n screening assessment 0 [facility] Start: 11-21-2023 Alcohol Comment maybe 3 per year [facility] Start: 1945 Sex assigned at Not on file N [facility] Start: 12-11-2023 End: 12-25-2023 Alcoholic beverage intake Ex-drinker (finding) [facility] Start: 11-20-2014 Sex Male (finding) [facility] Medical Equipment Procedure Code Equipment Code Equipment Origin al Text Equipment Identifier Dates Graft Bn 2.5ml A lo Puros Rpl [id number] - [id number] Start: 12-05-2023 Graft Bn 6mm Cindy Kb Hdrt Trinnect Spne Crv Ant Lrdtc Trinnect - [id number] - [id number] Start: 12-05-2023 Graft Bn 6mm Cindy Kb Hdrt Trinnect Spne Crv Ant Lrdtc Trinnect - [id number] - [id number] Start: 12-05-2023 Plate Bn 39mm 2 Lvl Zevo Spne Crv Ant Ti - [id number] Start: 12-05-2023 Screw Bn 15mm 3. 5mm Va Slf Drl Spne Crv Ant Ti Zevo - [id number] Start: 12-05-2023 Clinical Notes 06-21-2023 to 03-28-2024 Kevin Patel DPM - 03/28/2024 9:30 AM ESTMicchayo Freitas MD - 03/06/2024 1:30 PM ESTPatient InstructionsDareymundo Cardona MD - 01/25/2024 10:30 AM EDTKevin Patel DPM - 01/18/2024 9:30 AM EDT Note Date & Type Note Facility 03-28-2024 History of Present illness Narrative Patient: Marlon Chung : 1945 PCP: Kirk Cardona MD SUBJECTIVE This is a 78 y.o. male that presents today with a CC of elongated, thick nails. Pt states nails have been elongated and thick for many years and cause pain with ambulation in shoegear. Pt has tried previous treatment with minimal relief. Pt presents today for nail care and treatment. Patient is DM2 Patient also presents today for follow-up of dry skin and fissures to feet and has not been using prescribed or recommended [id number] cream with negative improvement. Allergies: No Known Allergies Past Medical History: Past Medical History: Diagnosis Date Actinic keratoses CAD (coronary artery disease) ([facility]/HCC) Diabetes mellitus ([facility]/HCC) Hypertension ([facility]/HCC) FL (myocardial infarction) ([facility]) Medications: Current Outpatient Medications: aspirin 81 MG chewable tablet, Chew 81 mg in the morning., Disp: , Rfl: atenolol (Tenormin) 50 MG tablet, Take 1 tablet (50 mg) by mouth Daily, Disp: 90 tablet, Rfl: 3 glimepiride (Amaryl) 4 MG tablet, Take 1 tablet (4 mg) by mouth in the morning and 1 tablet (4 mg) before bedtime., Disp: 180 tablet, Rfl: 3 lisinopril 10 MG tablet, Take 1 tablet (10 mg) by mouth Daily, Disp: 90 tablet, Rfl: 3 metFORMIN (Glucophage) 1000 MG tablet, Take 1 tablet (1,000 mg) by mouth in the morning and 1 tablet (1,000 mg) before bedtime., Disp: 90 tablet, Rfl: 3 senna-docusate (Robert-Colace) 8.6-50 MG tablet, Take 1 tablet by mouth in the morning and 1 tablet in the evening., Disp: , Rfl: simvastatin (Zocor) 40 MG tablet, Take 1 tablet (40 mg) by mouth Daily, Disp: 90 tablet, Rfl: 3 traMADol (Ultram) 50 MG tablet, Take 1 tablet (50 mg) by mouth 2 (two) times a day as needed for moderate pain, Disp: 60 tablet, Rfl: 1 Social History: Social History Socioeconomic History Marital status: Unmarried Spouse name: Not on file Number of children: Not on file Years of education: Not on file Highest education level: Not on file Occupational History Not on file Tobacco Use Smoking status: Every Day Types: Cigarettes Start date: 1964 Smokeless tobacco: Never Vaping Use Vaping status: Never Used Substance and Sexual Activity Alcohol use: Not Currently Drug use: Not on file Sexual activity: Not on file Other Topics Concern Not on file Social History Narrative Not on file Social Drivers of Health Financial Resource Strain: Not on file Food Insecurity: No Food Insecurity (01/17/2024) Received from [facility] Hunger Screening Within the past 12 months we worried whether our food would run out before we got money to buy more.: Never True Within the past 12 months the food we bought just didn't last and we didn't have money to get more.: Never True Transportation Needs: No Transportation Needs (12/05/2023) Received from [facility] PRAPARE - Transportation Lack of Transportation (Medical): No Lack of Transportation (Non-Medical): No Physical Activity: Not on file Stress: Not on file Social Connections: Not on file Intimate Partner Violence: Unknown (06/08/2023) Re[facility] from [facility] [place] Safety & Environment Fear of Current or Ex-Partner: Not on file Emotionally Abused: Not on file Physically Abused: Not on file Sexually Abused: Not on file Physically or Sexually Abused: Not on file Housing Stability: Low Risk (12/05/2023) Received from [facility] Housing Instability Are you worried or concerned that in the next two months you may not have stable housing that you own, rent or stay in as a part of a household?: No ROS: Gastrointestinal: denies abdominal pain, ulcers, or changes in appetite or bowel habits Musculoskeletal: Positive generalized arthritis to joints and denies loss of strength. Cardiovascular: denies CP, palpitations, irregular rhythms OBJECTIVE LE EXAM: DERM: Elongated thick yellow crumbly nails digits 1 through 10. Negative hair growth with thin shiny atrophic skin bilaterally. Positive Dry and scaly skin noted to bilateral feet VASC: Positive DP and negative PT pedal pulses NEURO: 5.07 Cash Donnie monofilament test intact to digits and forefoot bilaterally 125Hz tuning fork diminished to 1st MPJ bilaterally ORTHO: Positive pain on palpation to nails 1 through 10 ASSESSMENT 1. Diabetes mellitus due to underlying condition with diabetic polyneuropathy, unspecified whether assisted insulin use ([facility]) 2. Pain due to onychomycosis of toenails of both feet 3. Xerosis cutis PLAN Discussed proper foot care with patient today. Debride nails in length and thickness digits 1 through 10 Patient educated today on proper diabetic foot care including monitoring feet daily for any signs of infection openings in the skin or irregularities to both feet. Patient had a diabetic neurological exam today to both their feet and discussed proper shoe gear. Patient education on condition and treatment of condition. Patient education on condition and treatment of condition. Discussed application of hydrating cream to feet twice daily and to not place between toes and to apply prior to bed in evenings and to observe for any redness to feet or red streaks or drainage to feet. Patient to consider [id number] treatments for medication or use of urea cream and prescription today was offered for Lac-Hydrin cream. Kevin Patel DPM documented in this encounter [facility] 03-06-2024 History of Present illness Narrative Images from the original note were not included. [facility] [address] [place] [address], [address] [place] [address] * FOLLOW-UP NOTE ? 03/06/2024 Patient: Marlon Chung 1945 [id number] Physician: Wenceslao Freitas MD, FACS CHIEF COMPLAINT Follow-up after 2 level ACDF HISTORY OF PRESENT ILLNESS Marlon Chung is a 78 y.o. male. The gait therapy. He does not use a walker at home or even when he goes out locally. ALLERGIES No Known Allergies VITAL SIGNS BP 137/66 Pulse 75 Ht 182.9 cm (6' 0.01 ) Wt 70.3 kg (155 lb) BMI 21.02 kg/m PHYSICAL EXAMINATION Still shows much better strength in the lower extremities and better balance MRI / IMAGES No new images IMPRESSSION / PLAN Status post 2 level ACDF for radiculopathy and myelopathy. At this point I think he is stable from a neurosurgical perspective Electronically signed by: Wenceslao Freitas MD, FACS This note was created with the assistance of a speech recognition program with the goal of generating a timely record of the patient encounter. Inadvertent computerized risk tech errors related to syntax, spelling, homophones, and/or inaudibility may be present. [email or web address] 03-06-2024 Instructions Ann Alexandra CMA - 03/06/2024 1:30 PM EST Patient was seen today by Dr. Freitas and given ct lumbar myelogram and to follow after ct myelogram sp documented [facility] encounter [facility] 01-25-2024 History of Present illness Narrative Images from the original note were not included. Subjective Patient ID: David Chung is a 78 y.o. male who presents for Hypertension. Hypertension Patient is here for follow-up of elevated blood pressure.Cardiac symptoms: none. Patient denies chest pain, claudication, irregular heart beat, near-syncope, orthopnea, palpitations, paroxysmal nocturnal dyspnea, syncope, and tachypnea. Cardiovascular risk factors: advanced age (older than 55 for men, 65 for women), diabetes mellitus, hypertension, male gender, and smoking/ tobacco exposure. Hypertension Pertinent negatives include no chest pain, palpitations or shortness of breath. Diabetes Pertinent negatives for diabetes include no chest pain and no fatigue. Current Outpatient Medications on File Prior to Visit Medication Sig Dispense Refill aspirin 81 MG chewable tablet Chew 81 mg in the morning. senna-docusate (Robert-Colace) 8.6-50 MG tablet Take 1 tablet by mouth in the morning and 1 tablet in the evening. traMADol (Ultram) 50 MG tablet Take 1 tablet (50 mg) by mouth 2 (two) times a day as needed for moderate pain 60 tablet 1 No current facility-administered medications on file prior to visit. I have reviewed and reconciled the history and medication list with the patient today. No Known Allergies Social History Tobacco Use Smoking status: Every Day Types: Cigarettes Start date: 1964 Smokeless tobacco: Never Vaping Use Vaping status: Never Used Substance Use Topics Alcohol use: Not Currently Family History Problem Relation Name Age of Onset Hypertension Mother Past Medical History: Diagnosis Date Actinic keratoses CAD (coronary artery disease) ([facility]) Diabetes mellitus ([facility]) Hypertension ([facility]) FL (myocardial infarction) ([facility]) Past Surgical History: Procedure Laterality Date CHOLECYSTECTOMY CORONARY ANGIOPLASTY 2006 CORONARY ANGIOPLASTY WITH STENT PLACEMENT 2016 TONSILLECTOMY WRIST SURGERY Left Visit Vitals BP 134/82 Pulse 64 Ht 6' 1 Wt 150 lb SpO2 95% BMI 19.79 kg/m Smoking Status Every Day BSA 1.87 m Review of Systems Constitutional: Negative for fatigue. Respiratory: Negative for shortness of breath. Cardiovascular: Negative for chest pain and palpitations. Objective Physical Exam Constitutional: General: He is not in acute distress. Comments: Somewhat frail appearing HENT: Head: Normocephalic and atraumatic. Eyes: General: No scleral icterus. Cardiovascular: Rate and Rhythm: Normal rate and regular rhythm. Heart sounds: Murmur heard. Systolic murmur is present with a grade of 2/6. Pulmonary: Effort: Pulmonary effort is normal. No respiratory distress. Breath sounds: Normal breath sounds. No wheezing, rhonchi or rales. Musculoskeletal: General: No swelling. Skin: General: Skin is warm and dry. Neurological: General: No focal deficit present. Mental Status: He is alert and oriented to person, place, and time. Gait: Gait abnormal. Comments: Gait is slow, using walker Psychiatric: Mood and Affect: Mood normal. Behavior: Behavior normal. No visits with results within 2 Month(s) from this visit. Latest known visit with results is: Office Visit on 08/24/2023 Component Date Value Ref Range Status WHITE BLOOD CELL COUNT 08/24/2023 5.8 3.8 - 10.8 Thousand/uL Final RED BLOOD CELL COUNT 08/24/2023 4.25 4.20 - 5.80 Million/uL Final HEMOGLOBIN 08/24/2023 12.6 (L) 13.2 - 17.1 g/dL Final HEMATOCRIT 08/24/2023 38.3 (L) 38.5 - 50.0 % Final MCV 08/24/2023 90.1 80.0 - 100.0 fL Final MCH 08/24/2023 29.6 27.0 - 33.0 pg Final MCHC 08/24/2023 32.9 32.0 - 36.0 g/dL Final RDW 08/24/2023 13.8 11.0 - 15.0 % Final PLATELET COUNT 08/24/2023 238 140 - 400 Thousand/uL Final MPV 08/24/2023 10.9 7.5 - 12.5 fL Final ABSOLUTE NEUTROPHILS 08/24/2023 3,509 1,500 - 7,800 cells/uL Final ABSOLUTE LYMPHOCYTES 08/24/2023 1,653 850 - 3,900 cells/uL Final ABSOLUTE MONOCYTES 08/24/2023 470 200 - 950 cells/uL Final ABSOLUTE EOSINOPHILS 08/24/2023 99 15 - 500 cells/uL Final ABSOLUTE BASOPHILS 08/24/2023 70 0 - 200 cells/uL Final NEUTROPHILS 08/24/2023 60.5 % Final LYMPHOCYTES 08/24/2023 28.5 % Final MONOCYTES 08/24/2023 8.1 % Final EOSINOPHILS 08/24/2023 1.7 % Final BASOPHILS 08/24/2023 1.2 % Final CHOLESTEROL, TOTAL 08/24/2023 130 <200 mg/dL Final HDL CHOLESTEROL 08/24/2023 35 (L) > OR = 40 mg/dL Final TRIGLYCERIDES 08/24/2023 118 <150 mg/dL Final LDL-CHOLESTEROL 08/24/2023 75 mg/dL (calc) Final Comment: Reference range: <100 Desirable range <100 mg/dL for primary prevention; <70 mg/dL for patients with CHD or diabetic patients with > or = 2 CHD risk factors. LDL-C is now calculated using the Rosana calculation, which is a validated novel method providing better accuracy than the Friedewald equation in the estimation of LDL-C. Randy PARRA et al. YOANDY. 2013;310(19): 8397-9200 (http://BioSTL.Telcare/faq/FGG515) CHOL/HDLC RATIO 08/24/2023 3.7 <5.0 (calc) Final NON HDL CHOLESTEROL 08/24/2023 95 <130 mg/dL (calc) Final Comment: For patients with diabetes plus 1 major ASCVD risk factor, treating to a non-HDL-C goal of <100 mg/dL (LDL-C of <70 mg/dL) is considered a therapeutic option. Glucose 08/24/2023 178 (H) 65 - 99 mg/dL Final Comment: Fasting reference interval For someone without known diabetes, a glucose value >125 mg/dL indicates that they may have diabetes and this should be confirmed with a follow-up test. BUN 08/24/2023 16 7 - 25 mg/dL Final Creatinine 08/24/2023 0.85 0.70 - 1.28 mg/dL Final EGFR 08/24/2023 88 > OR = 60 mL/min/1.73m2 Final BUN/CREATININE RATIO 08/24/2023 SEE NOTE: 6 - 22 (calc) Final Comment: Not Reported: BUN and Creatinine are within reference range. Sodium 08/24/2023 142 135 - 146 mmol/L Final Potassium, Bld 08/24/2023 3.9 3.5 - 5.3 mmol/L Final Chloride 08/24/2023 103 98 - 110 mmol/L Final Carbon Dioxide 08/24/2023 29 20 - 32 mmol/L Final Calcium 08/24/2023 9.1 8.6 - 10.3 mg/dL Final PROTEIN, TOTAL 08/24/2023 6.2 6.1 - 8.1 g/dL Final ALBUMIN 08/24/2023 3.9 3.6 - 5.1 g/dL Final GLOBULIN 08/24/2023 2.3 1.9 - 3.7 g/dL (calc) Final ALBUMIN/GLOBULIN RATIO 08/24/2023 1.7 1.0 - 2.5 (calc) Final BILIRUBIN, TOTAL 08/24/2023 0.3 0.2 - 1.2 mg/dL Final ALKALINE PHOSPHATASE 08/24/2023 57 35 - 144 U/L Final AST 08/24/2023 15 10 - 35 U/L Final ALT 08/24/2023 9 9 - 46 U/L Final Hemoglobin A1C 08/24/2023 5.9 Final Assessment/Plan Diagnoses and all orders for this visit: Type 2 diabetes mellitus without complication, without long-term current use of insulin (CMS/HCC) - glimepiride (Amaryl) 4 MG tablet; Take 1 tablet (4 mg) by mouth in the morning and 1 tablet (4 mg) before bedtime. - metFORMIN (Glucophage) 1000 MG tablet; Take 1 tablet (1,000 mg) by mouth in the morning and 1 tablet (1,000 mg) before bedtime. - He needs to resume these meds. Last A1C 2 months ago was 8.6%. Coronary artery disease involving cheesh-na coronary artery of cheesh-na heart without angina pectoris (CMS/HCC) - atenolol (Tenormin) 50 MG tablet; Take 1 tablet (50 mg) by mouth Daily Benign essential hypertension (CMS/HCC) Supraventricular tachycardia (CMS/HCC) Chronic systolic heart failure (CMS/HCC) - lisinopril 10 MG tablet; Take 1 tablet (10 mg) by mouth Daily Moderate mixed hyperlipidemia not requiring statin therapy (CMS/HCC) - simvastatin (Zocor) 40 MG tablet; Take 1 tablet (40 mg) by mouth Daily Follow up in about 3 months (around 04/26/2024) for DM- A1C. documented in this encounter [facility] 01-18-2024 History of Present illness Narrative Patient: David Chung : 1945 PCP: Kirk Cardona MD SUBJECTIVE This is a 78 y.o. male that presents today with a CC of elongated, thick nails. Pt states nails have been elongated and thick for many years and cause pain with ambulation in shoegear. Pt has tried previous treatment with minimal relief. Pt presents today for nail care and treatment. Patient is DM2 Pt also presents today with secondary complaints of dry scaly skin to feet. Pt states that they have not been using OTC creams and lotions with minimal relief. Allergies: No Known Allergies Past Medical History: Past Medical History: Diagnosis Date Actinic keratoses CAD (coronary artery disease) (CMS/HCC) Diabetes mellitus (CMS/HCC) Hypertension (CMS/HCC) FL (myocardial infarction) (CMS/HCC) Medications: Current Outpatient Medications: aspirin 81 MG chewable tablet, Chew 81 mg in the morning., Disp: , Rfl: senna-docusate (Robert-Colace) 8.6-50 MG tablet, Take 1 tablet by mouth in the morning and 1 tablet in the evening., Disp: , Rfl: traMADol (Ultram) 50 MG tablet, Take 1 tablet (50 mg) by mouth 2 (two) times a day as needed for moderate pain, Disp: 60 tablet, Rfl: 1 Social History: Social History Socioeconomic History Marital status: Unmarried Spouse name: Not on file Number of children: Not on file Years of education: Not on file Highest education level: Not on file Occupational History Not on file Tobacco Use Smoking status: Every Day Types: Cigarettes Start date: 1964 Smokeless tobacco: Never Vaping Use Vaping status: Never Used Substance and Sexual Activity Alcohol use: Not Currently Drug use: Not on file Sexual activity: Not on file Other Topics Concern Not on file Social History Narrative Not on file Social Determinants of Health Financial Resource Strain: Not on file Food Insecurity: No Food Insecurity (01/17/2024) Received from [facility] Hunger Screening Within the past 12 months we worried whether our food would run out before we got money to buy more.: Never True Within the past 12 months the food we bought just didn't last and we didn't have money to get more.: Never True Transportation Needs: No Transportation Needs (12/05/2023) Received from [facility] PRAPARE - Transportation Lack of Transportation (Medical): No Lack of Transportation (Non-Medical): No Physical Activity: Not on file Stress: Not on file Social Connections: Not on file Intimate Partner Violence: Unknown (06/08/2023) Re[facility] from [facility] [place] Safety & Environment Fear of Current or Ex-Partner: Not on file Emotionally Abused: Not on file Physically Abused: Not on file Sexually Abused: Not on file Physically or Sexually Abused: Not on file Housing Stability: Low Risk (12/05/2023) Received from [facility] Housing Instability Are you worried or concerned that in the next two months you may not have stable housing that you own, rent or stay in as a part of a household?: No ROS: Gastrointestinal: denies abdominal pain, ulcers, or changes in appetite or bowel habits Musculoskeletal: Positive generalized arthritis to joints and denies loss of strength. Cardiovascular: denies CP, palpitations, irregular rhythms OBJECTIVE LE EXAM: DERM: Elongated thick yellow crumbly nails digits 1 through 10. Negative hair growth with thin shiny atrophic skin bilaterally. Dry and scaly skin noted to bilateral feet VASC: Positive DP and negative PT pedal pulses NEURO: 5.07 Cash Donnie monofilament test intact to digits and forefoot bilaterally 125Hz tuning fork diminished to 1st MPJ bilaterally ORTHO: Positive pain on palpation to nails 1 through 10 ASSESSMENT 1. 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 Pain due to onychomycosis of toenails of both feet 3. Xerosis cutis PLAN Discussed proper foot care with patient today. Debride nails in length and thickness digits 1 through 10 Patient educated today on proper diabetic foot care including monitoring feet daily for any signs of infection openings in the skin or irregularities to both feet. Patient had a diabetic neurological exam today to both their feet and discussed proper shoe gear. Patient education on condition and treatment of condition. Discussed application of hydrating cream to feet twice daily and to not place between toes and to apply prior to bed in evenings and to observe for any redness to feet or red streaks or drainage to feet. Patient to consider [id number] treatments for medication or use of urea cream and prescription today was offered for Lac-Hydrin cream. Kevin Patel DPM documented in this encounter [facility] 01-17-2024 History of Present illness Narrative Images from the original note were not included. [facility] [address] [place] [address], [address] [place] [address] * FOLLOW-UP NOTE ? 01/17/2024 Patient: Marlon Chung 1945 [id number] Physician: Wenceslao Freitas MD, FACS CHIEF COMPLAINT Follow-up after C5-6 and C6-7 anterior cervical diskectomy and fusion HISTORY OF PRESENT ILLNESS Marlon Chung is a 78 y.o. male. He is not having any neck pain. He is feeling significantly stronger in his upper extremities and lower extremities. He has not started physical therapy yet. ALLERGIES No Known Allergies VITAL SIGNS Ht 182.9 cm (6') Wt 66.2 kg (146 lb) BMI 19.80 kg/m PHYSICAL EXAMINATION Wound is healed fine. He is now 5/5 in his iliopsoas. Strength is normal in the upper extremities. MRI / IMAGES Images look fine IMPRESSSION / PLAN Status post 2 level anterior cervical diskectomy and fusion. It is time to start him on gait training that is the 1 thing that is still seems to be off. We will reassess him in about 6 weeks. Electronically signed by: Wenceslao Freitas MD, FACS This note was created with the assistance of a speech recognition program with the goal of generating a timely record of the patient encounter. Inadvertent computerized risk tech errors related to syntax, spelling, homophones, and/or inaudibility may be present. documented in this encounter [facility] 01-17-2024 Instructions Ann Alexandra CMA - 01/17/2024 1:00 PM EDT Patient was seen today by Dr. Freitas and given a physical therapy referral order and a follow up visit sp documented in this encounter [facility] 12-25-2023 History of Present illness Narrative Images from the original note were not included. Subjective Patient ID: David Chung is a 78 y.o. male who presents for review meds, Diabetes, and Hypertension. Diabetes Mellitus Patient presents for follow up of diabetes. Current symptoms include: none. Patient denies foot ulcerations, hypoglycemia , nausea, paresthesia of the feet, polydipsia, polyuria, visual disturbances, and vomiting. Evaluation to date has included: fasting blood sugar, fasting lipid panel, and hemoglobin A1C. Home sugars: pt has not been able to check blood sugars at home- Hypertension Patient is here for follow-up of elevated blood pressure.Cardiac symptoms: none. Patient denies chest pain, claudication, irregular heart beat, near-syncope, orthopnea, palpitations, paroxysmal nocturnal dyspnea, syncope, and tachypnea. Cardiovascular risk factors: advanced age (older than 55 for men, 65 for women), diabetes mellitus, hypertension, male gender, and smoking/ tobacco exposure. Diabetes Pertinent negatives for diabetes include no chest pain and no fatigue. Hypertension Pertinent negatives include no chest pain, palpitations or shortness of breath. Current Outpatient Medications on File Prior to Visit Medication Sig Dispense Refill aspirin 81 MG chewable tablet Chew 81 mg in the morning. senna-docusate (Robert-Colace) 8.6-50 MG tablet Take 1 tablet by mouth in the morning and 1 tablet in the evening. traMADol (Ultram) 50 MG tablet Take 1 tablet (50 mg) by mouth 2 (two) times a day as needed for moderate pain 60 tablet 1 [DISCONTINUED] methocarbamol (Robaxin) 500 MG tablet Take 500 mg by mouth every 8 (eight) hours if needed No current facility-administered medications on file prior to visit. I have reviewed and reconciled the history and medication list with the patient today. No Known Allergies Social History Tobacco Use Smoking status: Every Day Types: Cigarettes Start date: 1964 Smokeless tobacco: Never Vaping Use Vaping status: Never Used Substance Use Topics Alcohol use: Not Currently Family History Problem Relation Name Age of Onset Hypertension Mother Past Medical History: Diagnosis Date Actinic keratoses CAD (coronary artery disease) (CMS/HCC) Diabetes mellitus (CMS/HCC) Hypertension (CMS/HCC) FL (myocardial infarction) (CMS/HCC) Past Surgical History: Procedure Laterality Date CHOLECYSTECTOMY CORONARY ANGIOPLASTY 2005 CORONARY ANGIOPLASTY WITH STENT PLACEMENT 2016 TONSILLECTOMY WRIST SURGERY Left Visit Vitals BP 130/74 Pulse 81 Ht 6' 1 Wt 143 lb SpO2 96% BMI 18.87 kg/m Smoking Status Every Day BSA 1.83 m Review of Systems Constitutional: Negative for fatigue. Respiratory: Negative for shortness of breath. Cardiovascular: Negative for chest pain and palpitations. Objective Physical Exam Constitutional: General: He is not in acute distress. Comments: Somewhat frail appearing HENT: Head: Normocephalic and atraumatic. Eyes: General: No scleral icterus. Cardiovascular: Rate and Rhythm: Normal rate and regular rhythm. Heart sounds: Murmur heard. Systolic murmur is present with a grade of 2/6. Pulmonary: Effort: Pulmonary effort is normal. No respiratory distress. Breath sounds: Normal breath sounds. No wheezing, rhonchi or rales. Musculoskeletal: General: No swelling. Skin: General: Skin is warm and dry. Neurological: General: No focal deficit present. Mental Status: He is alert and oriented to person, place, and time. Gait: Gait abnormal. Comments: Gait is slow, using walker Psychiatric: Mood and Affect: Mood normal. Behavior: Behavior normal. Assessment/Plan Diagnoses and all orders for this visit: Cervical stenosis of spine - The patient is seeing a medical office technician for this condition, treatment is deferred to that specialist. Correspondence from that specialist and any available testing were reviewed during today's visit. Benign essential hypertension (CMS/HCC) - Well controlled, on no meds for this presently. SANTY (acute kidney injury) (CMS/HCC) - Improved. Chronic systolic heart failure (CMS/HCC) - Compensated. Follow up for As Previously Scheduled, bring all meds (taking and not taking) to that appt.. documented in this encounter [facility] 12-11-2023 History of Present illness Narrative Images from the original note were not included. Subjective Patient ID: David Chung is a 78 y.o. male who presents to go over his medications. David is in today to discuss his medications, after being discharged from [facility]. He had pinched nerve surgery and was taken off all his medications except percocet, and hasn't started back on anymore of them yet. Current Outpatient Medications on File Prior to Visit Medication Sig Dispense Refill [DISCONTINUED] Ferrous Sulfate (IRON PO) Take 1 tablet by mouth in the morning. [DISCONTINUED] oxyCODONE-acetaminophen (Percocet) 5-325 MG tablet Take 1-2 tablets by mouth every 6 (six) hours if needed aspirin 81 MG chewable tablet Chew 81 mg in the morning. methocarbamol (Robaxin) 500 MG tablet Take 500 mg by mouth every 8 (eight) hours if needed senna-docusate (Robert-Colace) 8.6-50 MG tablet Take 1 tablet by mouth in the morning and 1 tablet in the evening. [DISCONTINUED] atenolol (Tenormin) 25 MG tablet Take 1 tablet (25 mg) by mouth Daily (Patient not taking: Reported on 12/11/2023) 100 tablet 3 [DISCONTINUED] diclofenac (Voltaren) 75 MG EC tablet Take 75 mg by mouth in the morning. Do not start before December 13, 2023. [DISCONTINUED] ferrous sulfate 325 (65 Fe) MG tablet Take 325 mg by mouth in the morning. Take with meals. [DISCONTINUED] hydroCHLOROthiazide (HYDRODiuril) 25 MG tablet Take 25 mg by mouth [DISCONTINUED] omeprazole (PriLOSEC) [address] capsule Take 1 capsule (40 mg) by mouth Daily (Patient not taking: Reported on 12/11/2023) 100 capsule 3 No current facility-administered medications on file prior to visit. No Known Allergies Social History Tobacco Use Smoking status: Every Day Types: Cigarettes Start date: 1964 Smokeless tobacco: Never Vaping Use Vaping status: Never Used Substance Use Topics Alcohol use: Not Currently Family History Problem Relation Name Age of Onset Hypertension Mother Past Medical History: Diagnosis Date Actinic keratoses CAD (coronary artery disease) (CMS/HCC) Diabetes mellitus (CMS/HCC) Hypertension (CMS/HCC) [place] (myocardial infarction) (CMS/HCC) Past Surgical History: Procedure Laterality Date CHOLECYSTECTOMY CORONARY ANGIOPLASTY 2005 CORONARY ANGIOPLASTY WITH STENT PLACEMENT 2016 TONSILLECTOMY WRIST SURGERY Left Visit Vitals BP 125/65 Pulse (!) 47 Resp 16 Wt 145 lb 3.2 oz SpO2 98% BMI 19.16 kg/m Smoking Status Every Day BSA 1.84 m Review of Systems Objective Physical Exam Constitutional: General: He is not in acute distress. Comments: Somewhat frail appearing HENT: Head: Normocephalic and atraumatic. Eyes: General: No scleral icterus. Cardiovascular: Rate and Rhythm: Normal rate and regular rhythm. Heart sounds: Murmur heard. Systolic murmur is present with a grade of 2/6. Pulmonary: Effort: Pulmonary effort is normal. No respiratory distress. Breath sounds: Normal breath sounds. No wheezing, rhonchi or rales. Musculoskeletal: General: No swelling. Skin: General: Skin is warm and dry. Neurological: General: No focal deficit present. Mental Status: He is alert and oriented to person, place, and time. Gait: Gait abnormal. Comments: Gait is slow, using walker Psychiatric: Mood and Affect: Mood normal. Behavior: Behavior normal. Assessment/Plan Diagnoses and all orders for this visit: Cervical stenosis of spine Low back pain, unspecified back pain laterality, unspecified chronicity, unspecified whether sciatica present - traMADol (Ultram) 50 MG tablet; Take 1 tablet (50 mg) by mouth 2 (two) times a day as needed for moderate pain Chronic systolic heart failure (CMS/HCC) Bradycardia Follow up in about 2 months (around 02/10/2024) for DM- A1C, BP check, Med review, bring all meds. documented in this encounter [facility] 06-21-2023 Note [facility] Cardiology Clinic Note Chief Complaint: Patient here for cardiac clearance prior to back surgery, hoping to be scheduled next month. Denies chest pain, SOB, palpitations, and lightheadedness/syncope. Has not had any recent lab work or imaging. HPI: Dvaid Chung is a 77 y.o. male With [...] 1. Electrocardiogram abnormal 2. Coronary arteriosclerosis in cheesh-na artery - stents 2006 rca and cirx no sympt (more content not included)... 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 (CMS/[facility]) Pain due to onychomycosis of toenails of both feet documented in this encounter [facility]* Diagnosis Type 2 diabetes mellitus without complication, without long-term current use of insulin (CMS/HCC)- Primary Coronary artery disease involving cheesh-na coronary artery of cheesh-na heart without angina pectoris (CMS/[facility]) Benign essential hypertension (CMS/HCC) Essential hypertension, benign Supraventricular tachycardia (CMS/HCC) Other specified cardiac dysrhythmias Chronic systolic heart failure ([facility]/HCC) Chronic systolic heart failure Moderate mixed hyperlipidemia not requiring statin therapy ([facility]) documented in this encounter [facility]* Diagnosis Spondylosis without myelopathy or radiculopathy, cervical region- Primary [facility] Diagnosis Xerosis cutis- Primary Other specified disease of sebaceous glands Diabetes mellitus due to underlying condition with diabetic polyneuropathy, 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 ([facility]/HCC) Pain due to onychomycosis of toenails of both feet documented in this encounter [facility]* Diagnosis Cervical stenosis of spine- Primary Spinal stenosis in cervical region Low back pain, unspecified back pain laterality, unspecified chronicity, unspecified whether sciatica present Chronic systolic heart failure ([facility]/HCC) Chronic systolic heart failure Bradycardia Other specified cardiac dysrhythmias documented in this encounter [facility]* Diagnosis Cervical stenosis of spine- Primary Spinal stenosis in cervical region Benign essential hypertension (CMS/HCC) Essential hypertension, benign SANTY (acute kidney injury) ([facility]/HCC) Chronic systolic heart failure ([facility]) Chronic systolic heart failure documented in this encounter [facility] Summary Purpose Family History No Family History Records FoundNo Family History Records FoundNo Family History Records FoundNo Family History Records FoundNo Family History Records FoundNo Family History Records FoundNo Family History Records Found Advance Directives Date Activated Date Inactivated Comments 12/05/2023 5:13 PM 12/06/2023 12:24 PM Date Activated Date Inactivated Comments 12/05/2023 5:13 PM 12/06/2023 12:24 PM Reason for Referral Specialty Diagnoses / Procedures Referred By Marcia t Referred To Contact Rehabilitation Diagnoses Low back pain, unspecified back pain laterality, unspecified chronicity, unspecified whether sciatica present Wenceslao Freitas MD [address] [place] [address] [address] [place] [address] [facility] [address] [place] [address] Referral ID Status Reason Start Date Expiration Date Visits Requested Visits Authorized [id number] Authorized Specialty Services Required 01/17/2024 07/17/2024 12 12 Additional Source Comments (unrecognized sect ion and content) No Status Records FoundNo Status Records FoundNo Status Records FoundNo Status Records FoundNo Status Records FoundNo Status Records FoundNo Status Records Found INFORMATION SOURCE (unrecogn ized section and content) DATE CREATED AUTHOR 03/29/2021 [facility] DATE CREATED AUTHOR AUTHOR'S ORGANIZ ATION 07/08/2021 [facility] DATE CREATED AUTHOR AUTHOR'S ORGANIZ ATION 08/20/2023 [facility] DATE CREATED AUTHOR AUTHOR'S ORGANIZ ATION 11/06/2023 [facility] DATE CREATED AUTHOR AUTHOR'S ORGANIZ ATION 01/19/2024 [facility] DATE CREATED AUTHOR AUTHOR'S ORGANIZ ATION 03/09/2024 [facility] DATE CREATED AUTHOR AUTHOR'S ORGANIZ ATION 03/31/2024 [facility] Reason for Visit (unrecogniz ed section and content) Reason Comments Follow-up 6wk acdf imaging almaz or Reason Comments Toenail Care NON DM NAIL CARE Reason Comments Hypertension Reason Comments Follow-up F/u cervical no imag ing prior Reason Comments Toenail Care Non dm nail care Reason Comments review meds Diabetes Hypertension Care Teams (unrecognized sec tion and content) Assistant Associate Full Professor Relationship Specialty Start Date End Date Kirk Cardona MD [address] [facility] [address] [place] [id number] PCP - General Internal Medicine 11/02/23 Assistant Associate Full Professor Relationship Specialty Start Date End Date Kirk Cardona MD [address] [facility] [address] [place] [address] PCP - General Internal Medicine 04/25/23 Assistant Associate Full Professor Relationship Specialty Start Date End Date Kirk Cardona MD [address] [facility] [address] [place] [address] PCP - General Internal Medicine 04/25/23 Assistant Associate Full Professor Relationship Specialty Start Date End Date Kirk Cardona MD [address] [place] [address] [place] [address] PCP - General Internal Medicine 04/25/23 Assistant Associate Full Professor Relationship Specialty Start Date End Date Kirk Cardona MD [address] [place] [address] PCP - General Internal Medicine 11/02/23 Assistant Associate Full Professor Relationship Specialty Start Date End Date Kirk Cardona MD [address] [place] [address] PCP - General Internal Medicine 04/25/23 Assistant Associate Full Professor Relationship Specialty Start Date End Date Kirk Cardona MD [address] [place] [address] PCP - General Internal Medicine 04/25/23 Assistant Associate Full Professor Relationship Specialty Start Date End Date Kirk Cardona MD [address] [place] [address] PCP - General Internal Medicine 04/25/23 Assistant Associate Full Professor Relationship Specialty Start Date End Date Kirk Cardona MD [address] [place] [address] PCP - General Internal Medicine 04/25/23 Assistant Associate Full Professor Relationship Specialty Start Date End Date Kirk Cardona MD [address] [place] [address] PCP - General Internal Medicine 04/25/23 Assistant Associate Full Professor Relationship Specialty Start Date End Date Kirk Cardona MD [address] [place] [address] PCP - General Internal Medicine 04/25/23 FOR RECORDS PERTAINING TO PATIENTS WHO ARE [...] BE BASED ON THE PRIMARY CLINICAL RECORDS. [facility]. provides no warranty or guarantee of the accuracy or completeness of information in this document.
[2024-05-03 23:55] VITALS: O2SAT 96
[2024-05-04] VITALS (24 sets, daily range): BP systolic 132–190; BP diastolic 50–105; PULSE 56–91; O2SAT 94–99
--- NOTE | 2024-05-04 00:03 | PC.NURSE ---
this patient arrives via ems from home with a complaint of leg weakness for the past 2 days. this leg weakness occurs when this patient stands up from a sitting position. this patient lives at home alone and voices uses a can or a walker sometimes
--- NOTE | 2024-05-04 00:05 | ECG_ITS ---
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
--- NOTE | 2024-05-04 00:08 | ED_ITS ---
HPI - Weakness General Chief complaint: Weakness Time Seen by Provider: 05/03/24 23:51 Source: patient Mode of arrival: ambulance Limitations: no limitations History of Present Illness HPI Narrative: pt brought in by squad, complains that his legs have been weak since yesterday. No fall or injuries. No headache or visual changes. No numbness, tingling or paralysis. While both legs feel weak he complains that the left is shakier and weaker than the right. he denies any recent illness, says that he is eating and drinking normally and taking his meds as prescribed. No fever or chills. He is uncertain about urinary symptoms. PMHx includes CAD with AMI in 2005 resulting in placement of 2 stents in coronary arteries. Related Data Home Medications ?Medication ?Instructions ?Recorded ?Confirmed glimepiride 4 mg tablet 4 mg PO BID 07/31/23 08/21/23 lisinopril 10 mg tablet 10 mg PO DAILY 07/31/23 08/21/23 metformin 1,000 mg tablet 1,000 mg PO BID 07/31/23 08/21/23 aspirin 81 mg tablet,delayed 81 mg PO DAILY 08/21/23 08/21/23 release (Adult Low Dose Aspirin) atenolol 50 mg tablet 50 mg PO DAILY 08/21/23 08/21/23 cholecalciferol (vitamin D3) 25 1,000 unit PO DAILY 08/21/23 08/21/23 mcg (1,000 unit) tablet cyclobenzaprine 10 mg tablet 10 mg PO QAM PRN muscle spasm 08/21/23 08/21/23 dicyclomine 20 mg tablet 20 mg PO DAILY 08/21/23 08/21/23 hydrochlorothiazide 25 mg tablet 25 mg PO DAILY 08/21/23 08/21/23 meloxicam 15 mg tablet 15 mg PO DAILY 08/21/23 08/21/23 methocarbamol 500 mg tablet 500 mg PO Q8H PRN pain 08/21/23 08/21/23 simvastatin 40 mg tablet (Zocor) 40 mg PO DAILY 08/21/23 08/21/23 tramadol 50 mg tablet 50 mg PO Q12H PRN pain 08/21/23 08/21/23 Allergies Allergy/AdvReac Type Severity Reaction Status Date / Time No Known Drug Allergies Allergy Verified 05/04/24 00:24 PFSH PFS Medical History (Updated 05/04/24 @ 01:04 by Nils Christopher) Constipation ?K59.00 - Constipation, unspecified (ICD-10) GERD (gastroesophageal reflux disease) ?K21.9 - Gastro-esophageal reflux disease without esophagitis (ICD-10) Myocardial infarction ?I21.9 - Acute myocardial infarction, unspecified (ICD-10) Chronic right shoulder pain ?M25.511 - Pain in right shoulder (ICD-10) ?G89.29 - Other chronic pain (ICD-10) Acute neck pain ?M54.2 - Cervicalgia (ICD-10) Weight loss, unintentional ?R63.4 - Abnormal weight loss (ICD-10) Hypotension ?I95.9 - Hypotension, unspecified (ICD-10) Diarrhea ?R19.7 - Diarrhea, unspecified (ICD-10) Abdominal pain ?R10.9 - Unspecified abdominal pain (ICD-10) Pulmonary embolism ?I26.99 - Other pulmonary embolism without acute cor pulmonale (ICD-10) Diabetes ?E11.9 - Type 2 diabetes mellitus without complications (ICD-10) Hypertension ?I10 - Essential (primary) hypertension (ICD-10) Surgical History (Updated 08/21/23 @ 08:18 by Zaida Pruitt) History of removal of cyst ?Z98.890 - Other specified postprocedural states (ICD-10) History of heart artery stent ?Z95.5 - Presence of coronary angioplasty implant and graft (ICD-10) Previous back surgery ?Z98.890 - Other specified postprocedural states (ICD-10) History of tonsillectomy ?Z90.89 - Acquired absence of other organs (ICD-10) History of cholecystectomy ?Z90.49 - Acquired absence of other specified parts of digestive tract (ICD- 10) Social History (Updated 07/31/23 @ 17:02 by Mendy Leon) Within the past year, how often did you have a drink containing alcohol: never Within the past year, how many standard drinks containing alcohol did you have on a typical day: 1 or 2 Within the past year, how often did you have six or more drinks on one occasion: never Total score: 0 Score interpretation: A score less than 4 is consistent with normal alcohol consumption. Smoking status: Current some day smoker Second hand tobacco smoke exposure: Yes Non-prescribed substance use: denies use Known occupational exposures/hazards: No Highest level of school completed/degree received: Associate degree: academic program Do you want help with school or training: No Are you now , , , , never or living with a partner: never In a typical week, how many times do you talk on the telephone with family, friends, or neighbors: twice per week How often do you get together with friends or relatives: 3 or more times per week How often do you attend yazidi or uatsdin services: never Do you belong to any clubs or organizations such as yazidi groups unions, [employer] or athletic groups, or school groups: no Total score: 1 Score interpretation: A score of less than or equal to 1 indicates the most socially isolated. Little interest or pleasure in doing things: not at all Feeling down, depressed, or hopeless: not at all Feel stressed/tense/nervous/anxious/difficulty sleeping: not at all Due to disability, difficulty making decisions: No Do you think of yourself as: straight/heterosexual Gender Identity: male Exam Narrative Exam Narrative: Nurses notes and vital signs reviewed and patient is not hypoxic. afebrile General: Well-appearing and in no apparent distress. Skin: Warm, dry, no pallor noted. No rash. Head: Normocephalic, atraumatic. Neck: Supple, non-tender. Eye: Pupils are equal, round and EOMI. No scleral icterus. Ears, Nose, Mouth, and Throat: Oral mucosa is slightly dry Cardiovascular: Regular Rhythm without murmur, gallop or rub. Borderline bradycardia Respiratory: No accessory muscle use or respiratory distress. Lungs are clear to auscultation, no wheezing, rales or rhonchi Back: No midline thoracic or lumbar vertebral tenderness or mass. No CVA tend erness Musculoskeletal: no calf or popliteal tenderness, no lower extremity edema/swelling. When laying in the bed, he is able to move all extremities in all modalities. He does complain of the sensation of leg weakness when they are individually tested. He also tells me that he feels like the left leg is shaky when I attempt to have him abduct, adduct, flex, extend the left lower extremity at the hip and knee. His left leg is slightly weaker than the right on comparison GI: Abdomen is soft, non-distended. Normal bowel sounds. No solid or pulsatile masses appreciated. No tenderness to palpation. No rebound, guarding, or rigidity noted. Neurological: A&O x4. No cranial nerve dysfunction observed. No truncal ataxia. Moves all extremities but with the sensation and weakness described above. Sensation intact. Psychiatric: Cooperative and interactive. Normal mood and affect. Constitutional Vital Signs, click to edit/add: Last Vital Signs Temp 98.5 F 05/03/24 23:47 Pulse 67 05/04/24 00:31 Resp 18 05/04/24 00:31 BP 161/74 H 05/04/24 00:31 Pulse Ox 96 05/04/24 00:31 O2 Del Method Room Air 05/03/24 23:47 Course Vital Signs Vital signs: Vital Signs Temperature 98.5 F 05/03/24 23:47 Pulse Rate 59 L 05/03/24 23:47 Respiratory Rate 18 05/03/24 23:47 Blood Pressure 163/80 H 05/03/24 23:47 Pulse Oximetry 98 05/03/24 23:47 Oxygen Delivery Method Room Air 05/03/24 23:47 Temperature 98.5 F 05/03/24 23:47 Pulse Rate 67 05/04/24 00:31 Respiratory Rate 18 05/04/24 00:31 Blood Pressure 161/74 H 05/04/24 00:31 Pulse Oximetry 96 05/04/24 00:31 Oxygen Delivery Method Room Air 05/03/24 23:47 MDM - Weakness MDM Narrative Medical decision making narrative: Patient was placed on security monitor and EKG obtained. Blood drawn and sent for evaluation. he was given 1L NS IVF and 0.1mg Clonidine EKG interpretation detailed below. Normal CBC. Unremarkable CMP including renal function. Troponin found to be markedly elevated at 475.1. Patient was ordered to receive heparin bolus and drip and arrangements were made to transfer the patient to a tertiary care facility that has cardiac services, including intervention. Weather is poor and the nearest facility is [facility] in [place]. He and I talked and the patient was in agreement to go to [facility] for admission. Call placed to the nursing supervisor garment manufacturing at [facility] to discuss transfer to the hospitalist's service with cardiology consultation. @ 01:50, I spoke with Dr Arevalo, hospitalist at [facility] - after discussing the patient's case, he accepted the patient's transfer to their facility and the hospitalist service. Medical Records Attestation: I reviewed the patient's medical records. Lab Data Attestation: I reviewed the patient's lab results. Labs: Lab Results 05/04/24 05/04/24 Range/Units 00:15 01:38 WBC 6.4 (4.0-11.0) 10^3/uL RBC 4.86 (4.70-6.10) 10^6/uL Hgb 14.2 (14.0-18.0) g/dL Hct 43.1 (42.0-54.0) % MCV 88.7 (80.0-94.0) fL MCH 29.2 (25.9-34.0) pg MCHC 32.9 (29.9-35.2) g/dL RDW 14.2 (11.0-15.0) % Plt Count 185 (150-450) 10^3/uL MPV 9.9 (9.5-13.5) fL Neut % (Auto) 70.0 (43.0-75.0) % Lymph % (Auto) 18.3 L (20.5-60.0) % [place] % (Auto) 10.3 (1.7-12.0) % Eos % (Auto) 0.6 L (0.9-7.0) % Baso % (Auto) 0.5 (0.2-2.0) % Neut # (Auto) 4.5 (1.4-6.5) 10^3/uL Lymph # (Auto) 1.2 (1.2-3.8) 10^3/uL [place] # (Auto) 0.7 (0.3-0.8) 10^3/uL Eos # (Auto) 0.0 (0.0-0.7) 10^3/uL Baso # (Auto) 0.0 (0.0-0.1) 10^3/uL Abs Immat Gran (auto) 0.02 (0.00-0.03) 10^3/uL Imm/Tot Granulo (auto) 0.3 (0.0-0.5) % PT 11.0 (9.0-11.6) sec INR 1.04 APTT 33.3 (22.3-36.2) sec Sodium 140 (136-145) mmol/L Potassium 4.2 (3.5-5.1) mmol/L Chloride 103 (98-107) mmol/L Carbon Dioxide 30.0 (21.0-32.0) mmol/L Anion Gap 11.2 BUN 17.0 (7.0-18.0) mg/dL Creatinine 1.06 (0.70-1.30) mg/dL Est GFR ( Amer) >60 (>=60 mL/min/1.73m^2) Est GFR (Non-Af Amer) >60 (>=60 mL/min/1.73m^2) BUN/Creatinine Ratio 16.0 Glucose 54 L (74-106) mg/dL Calcium 8.6 (8.5-10.1) mg/dL Magnesium 1.7 L (1.8-2.4) mg/dL Total Bilirubin 0.5 (0.2-1.0) mg/dL AST 47 H (15-37) U/L ALT 23 (16-63) U/L Alkaline Phosphatase 74 (46-116) U/L Troponin I High Sens 475.1 H* (4.0-76.1) pg/mL Total Protein 7.1 (6.4-8.2) g/dL Albumin 3.4 (3.4-5.0) g/dL Globulin 3.7 g/dL Albumin/Globulin Ratio 0.9 Urine Color Lt. yellow (YELLOW) Urine Clarity Clear (CLEAR) Urine pH 7.5 (5.0-9.0) Ur Specific [place] 1.015 (1.005-1.025) Urine Protein 30 A (NEG/TRACE) mg/dL Urine Glucose (UA) Negative (NEGATIVE) mg/dL Urine Ketones Trace A (NEGATIVE) mg/dL Urine Occult Blood Trace-l (NEGATIVE) Urine Nitrite Negative (NEGATIVE) Urine Bilirubin Negative (NEGATIVE) Urine Urobilinogen 0.2 (0.2-1.0) EU/dL Ur Leukocyte Esterase Negative (NEGATIVE) Urine RBC None seen (0-2) #/HPF Urine WBC 0-2 A (NONE SEEN) #/HPF Ur Squamous Epith Cells Rare (NONE/RARE) #/LPF Urine Crystals None seen (None Seen) #/HPF Urine Bacteria None seen (NONE SEEN) #/HPF Urine Casts None seen (NONE SEEN) #/LPF Urine Mucus None seen (NONE SEEN) ECG Data Attestation: I personally reviewed and interpreted this ECG as follows: Interpretation: EKG interpretation: Emergency Department physician interpretation. Normal sinus rhythm at 57bpm. Right bundle branch block. PVCs noted. Following the last PVC there is a compensatory pause and then he has a bradycardic rhythm. T waves are somewhat prominent Critical Care Time Critical Care Time Critical Care Time: Yes Total Critical Care Time: 50 Attestation: Critical Care Time: 50 minutes, critical care time is separate from any procedures that are performed. The following was considered in the determination of critical care but not limited to the level medical decision-making, intensive cardiac and/or respiratory monitor, frequent vital sign monitoring, evaluation of laboratory studies, evaluation of a radiographic studies, oxygen monitoring and constant monitoring. Discharge Plan Discharge Chief Complaint: Weakness Clinical Impression: Acute non-ST elevation myocardial infarction (NSTEMI) [facility] Time of Disposition Decision: 00:50 Discharge Location: [facility]
[2024-05-04 00:27] LABS: Basophils Percent Auto 0.5 % (0.2-2.0); Eosinophils Percent Auto 0.6 % (0.9-7.0); Hematocrit 43.1 % (42.0-54.0); Hemoglobin 14.2 g/dL (14.0-18.0); Immature Granulocytes Abs Auto 0.02 10^3/uL (0.00-0.03); Immature Granulocytes Pct Auto 0.3 % (0.0-0.5); Lymphocytes Absolute Auto 1.2 10^3/uL (1.2-3.8); Lymphocytes Percent Auto 18.3 % (20.5-60.0); Mean Corpuscular HGB Conc 32.9 g/dL (29.9-35.2); Mean Corpuscular Hemoglobin 29.2 pg (25.9-34.0); Mean Corpuscular Volume 88.7 fL (80.0-94.0); Mean Platelet Volume 9.9 fL (9.5-13.5); Monocytes Absolute Auto 0.7 10^3/uL (0.3-0.8); Monocytes Percent Auto 10.3 % (1.7-12.0); Neutrophils Absolute Auto 4.5 10^3/uL (1.4-6.5); Platelet Count 185 10^3/uL (150-450); Red Blood Count 4.86 10^6/uL (4.70-6.10); Red Cell Distribution Width 14.2 % (11.0-15.0); White Blood Count 6.4 10^3/uL (4.0-11.0)
[2024-05-04] MEDS: 0.9 % SODIUM CHLORIDE 1,000 ML 1000 ML IV (00:31)
[2024-05-04 00:47] LABS: Alanine Aminotransferase 23 U/L (16-63); Albumin Globulin Ratio 0.9; Albumin Level 3.4 g/dL (3.4-5.0); Alkaline Phosphatase 74 U/L (46-116); Anion Gap 11.2; Aspartate Amino Transferase 47 U/L (15-37); Bilirubin Total 0.5 mg/dL (0.2-1.0); Calcium 8.6 mg/dL (8.5-10.1); Chloride 103 mmol/L (98-107); Estimated GFR (African America >60 (>=60 mL/min/1.73m^2); Estimated GFR (Non-African Ame >60 (>=60 mL/min/1.73m^2); Globulin 3.7 g/dL; Glucose 54 mg/dL (74-106); Magnesium 1.7 mg/dL (1.8-2.4); Potassium 4.2 mmol/L (3.5-5.1); Sodium 140 mmol/L (136-145); Total Protein 7.1 g/dL (6.4-8.2)
[2024-05-04 00:48] LABS: Troponin I High Sensitivity 475.1 pg/mL (4.0-76.1)
[2024-05-04] MEDS: CLONIDINE HCL 0.1 MG TABLET PO (00:51)
--- NOTE | 2024-05-04 01:04 | XR_ITS ---
The [address] [address] Patient Name: KATHE VICTOR MRN: [id number] date: 1945 Sex: M Assigned Patient Location: ER Current Patient Location: ER Accession/Order Number: [id number] Exam Date: 05/04/2024 01:14 Report Date: 05/04/2024 03:00 At the request of: ELIZABETH BISHOP Procedure: XR chest 1V SINGLE VIEW CHEST: 05/04/2024 1:14 AM EST CLINICAL HISTORY:NSTEMI COMPARISONS: None. TECHNIQUE: Single frontal view of the chest, utilizing portable technique. Portable radiography should be considered a technically compromised study. Strongly consider dedicated PA and lateral chest radiographs, as clinically indicated. FINDINGS: LINES AND TUBES: Cardiac monitoring leads and wires overlie the patient. CARDIAC SILHOUETTE: Within normal limits. MEDIASTINAL AND HILAR CONTOUR: Within normal limits. PULMONARY PARENCHYMA AND PLEURA: No consolidation, edema, effusion, or pneumothorax. OSSEOUS STRUCTURES:Nothing significant. OTHER COMMENTS:None. XR/XR chest 1V IMPRESSION: No acute findings. This report was generated with voice recognition software. Effort has been made to ensure accuracy of this report, however, occasional wording errors may persist. Please contact our office with any questions. Electronically authenticated by: MATTI ACKERMAN Date: 05/04/2024 03:00
[2024-05-04 01:17] LABS: INR 1.04
[2024-05-04 01:20] LABS: Partial Thromboplastin Time 33.3 sec (22.3-36.2)
[2024-05-04 01:48] LABS: Bilirubin Urine NEGATIVE (NEGATIVE); Blood Urine TRACE-L (NEGATIVE); Clarity Urine CLEAR (CLEAR); Color Urine LT. YELLOW (YELLOW); Glucose Urine UA NEGATIVE (NEGATIVE); Ketones Urine TRACE mg/dL (NEGATIVE); Leukocyte Esterase Urine NEGATIVE (NEGATIVE); Nitrite Urine NEGATIVE (NEGATIVE); Protein Urine 30 mg/dL (NEG/TRACE); Specific Gravity Urine 1.015 (1.005-1.025); Urobilinogen Urine 0.2 EU/dL (0.2-1.0); pH Urine 7.5 (5.0-9.0)
[2024-05-04 02:02] LABS: Bacteria Urine NONE SEEN #/HPF (NONE SEEN); Cast Seen? NONE SEEN #/LPF (NONE SEEN); Crystals Seen? None Seen #/HPF (None Seen); Mucus Urine NONE SEEN (NONE SEEN); RBC Urine NONE SEEN #/HPF (0-2); Squamous Epithelial Cell Urine RARE #/LPF (NONE/RARE); WBC Urine 0-2 #/HPF (NONE SEEN)
[2024-05-04] MEDS: HEPARIN SODIUM,PORCINE/D5W 25,000 UNIT/500 ML IV.SOLN 16.874 UNIT IV (02:03)
[2024-05-04] MEDS: HEPARIN SODIUM (PORCINE) 5,000 UNIT/ML VIAL 4000 UNIT IV (02:03)
--- NOTE | 2024-05-04 02:33 | PC.NURSE ---
this patient personal belongings 1 blue shirt and 1 pair of black shoes( in right shoes 1 set of keys, 1 black wallet and a 1 yellow money clip with $145.00( [place] from security as 2 nd witness), this patient also a yellow wrist watch on his left wrist, 1 brown hat on his head. patient and his socks and jeans on his body
--- NOTE | 2024-05-04 03:12 | PC.NURSE ---
[facility] transport squad here and i gave all paper work and patient report to the team
[2024-05-04 03:18] LABS: Troponin I High Sensitivity 458.5 pg/mL (4.0-76.1)
--- NOTE | 2024-05-04 03:29 | PC.NURSE ---
patient report called to [facility] [phone], I talked with Alejo ELENA, patient report given to him. at time of transport this patient voices no complaints of chest pain or shortness of breath, the heparin drip will be continued with the transport team. the transport port team did take this patient's belonging
== END 2024-05-04 03:34 | disposition short-term general hospital (02) ==
PROVIDERS: Emergency Provider Emergency Medicine; PCP Internal Medicine
DX: I21.4 Non-ST elevation (NSTEMI) myocardial infarction (principal); I25.10 Atherosclerotic heart disease of native coronary artery without angina pectoris; I25.2 Old myocardial infarction; Z95.5 Presence of coronary angioplasty implant and graft; Z90.49 Acquired absence of other specified parts of digestive tract; F17.200 Nicotine dependence, unspecified, uncomplicated
CPT/HCPCS: 36415; 71045; 80053; 81001; 83735; 84484; 85025; 85610; 85730; 93005; 96365; 96376; 99285; J1644